=== PATIENT | female | born 1945 | race Caucasian/White ===

== ENCOUNTER 2018-07-24 11:44 | Inpatient (IN) ==
[2018-07-24 12:32] LABS: Basophils # 0.1 10*3/uL (0.0-0.2); Basophils % 0.7 % (0.0-0.8); Eosinophils # 0.3 10*3/uL (0.0-0.87); Eosinophils % 2.6 % (0.00-10.9); Hematocrit 38.2 VOL% (35.7-47.0); Hemoglobin 12.7 GM/DL (12.0-16.0); Immature Granulocytes % 0.9 %; Immature Granulocytes Absolute 0.11 #; Lymphocytes # 2.4 10*3/uL (1.4-4.0); Lymphocytes % 18.7 % (21.3-54.2); Mean Corpuscular HGB Conc 33.2 GM/DL (32-36); Mean Corpuscular Hemoglobin 28 PG (27-34); Mean Corpuscular Volume 85.3 FL (87-102); Mean Platelet Volume 9.2 FL (9.6-12.0); Monocytes # 0.8 10*3/uL (0.11-0.8); Monocytes % 6.1 % (1.7-12.7); Neutrophils # 9.2 10*3/uL (1.4-7.4); Platelet Count 298 T/CUMM (130-400); Red Blood Count 4.48 MC/CUMM (3.8-5.5); Red Cell Distribution Width 12.8 % (9.3-17.3); White Blood Count 12.9 T/CUMM (4-12)
[2018-07-24 13:23] LABS: Albumin 3.6 G/DL (3.4-5.0); Bilirubin,Total 0.4 MG/DL (0.2-1.0); Calcium 9.1 MG/DL (8.5-10.1); Osmolality,Calculated 279.5 MOS/KG (273-304); Potassium 3.9 MMOL/L (3.5-5.1); Total Protein 7.1 G/DL (6.4-8.3)
[2018-07-24 14:38] LABS: Apearance,Urine CLEAR (Clear); Bilirubin,Urine Negative (Negative); Blood, Urine Negative (Negative); Glucose,Urine (UA) Negative (Negative); Ketones,Urine Negative (Negative); Nitrite,Urine Negative (Negative); Protein,Urine Negative; RBC,Urine 2 /HPF (0-4); Squamous Epithelial Cell,Urine Occasional /HPF (0-10); Urine Color Yellow (Yellow); Urine Specific Gravity 1.011 (1.001-1.035); Urine Urobilinogen < 2.0 EU/DL (0.2-1.0); WBC,Urine 2 /HPF (0-6)
[2018-07-24] MEDS ORDERED: ZALEPLON 5 MG CAPSULE PO PRN (15:59)
[2018-07-24] MEDS ORDERED: GLUCAGON 1 MG VIAL IM PRN (15:59)
[2018-07-24] MEDS ORDERED: DEXTROSE 50% 25 GM/50 ML VIAL IV PRN (15:59)
[2018-07-24] MEDS ORDERED: CETIRIZINE 10 MG TABLET PO PRN (16:43)
[2018-07-24] MEDS ORDERED: tiZANidine 4 MG TABLET PO PRN (16:43)
[2018-07-24] MEDS: INSULIN LISPRO 100 UNIT/ML SUBCUT SCH ×2 (18:07→21:54)
[2018-07-24] MEDS: METOPROLOL TARTRATE 25 MG TABLET PO SCH (20:51)
[2018-07-24] MEDS: ATORVASTATIN 10 MG TABLET PO SCH (20:51)
[2018-07-24] MEDS: CITALOPRAM 40 MG TABLET PO SCH (21:13)
[2018-07-25] MEDS: LEVOTHYROXINE 50 MCG TABLET PO SCH (06:25)
[2018-07-25 08:36] LABS: Basophils # 0.1 10*3/uL (0.0-0.2); Basophils % 0.6 % (0.0-0.8); Eosinophils # 0.4 10*3/uL (0.0-0.87); Eosinophils % 3.1 % (0.00-10.9); Hematocrit 36.6 VOL% (35.7-47.0); Immature Granulocytes % 0.7 %; Immature Granulocytes Absolute 0.09 #; Lymphocytes # 3.7 10*3/uL (1.4-4.0); Lymphocytes % 29.9 % (21.3-54.2); Mean Corpuscular HGB Conc 32.8 GM/DL (32-36); Mean Corpuscular Hemoglobin 28 PG (27-34); Mean Corpuscular Volume 86.5 FL (87-102); Mean Platelet Volume 10.2 FL (9.6-12.0); Monocytes # 0.8 10*3/uL (0.11-0.8); Monocytes % 6.8 % (1.7-12.7); Neutrophils # 7.2 10*3/uL (1.4-7.4); Neutrophils % 58.9 % (38.7-73.9); Platelet Count 288 T/CUMM (130-400); Red Blood Count 4.23 MC/CUMM (3.8-5.5); Red Cell Distribution Width 12.8 % (9.3-17.3); White Blood Count 12.3 T/CUMM (4-12)
[2018-07-25] MEDS: METOPROLOL TARTRATE 25 MG TABLET PO SCH ×2 (09:00→21:46)
[2018-07-25] MEDS ORDERED: LOSARTAN 25 MG TABLET PO SCH (09:00)
[2018-07-25] MEDS ORDERED: CYANOCOBALAMIN 1000 MCG/1 ML VIAL IM SCH (09:00)
[2018-07-25] MEDS: ATORVASTATIN 10 MG TABLET PO SCH (09:01)
[2018-07-25] MEDS: PANTOPRAZOLE 40 MG TABLET PO SCH (09:01)
[2018-07-25] MEDS: INSULIN LISPRO 100 UNIT/ML SUBCUT SCH ×4 (09:02→21:45)
[2018-07-25] MEDS: ACETAMINOPHEN 325 MG TABLET PO PRN ×2 (09:05→13:26)
[2018-07-25 09:18] LABS: Calcium 8.8 MG/DL (8.5-10.1); Osmolality,Calculated 279.4 MOS/KG (273-304); Risk Ratio 4.68; Thyroid Stimulating Hormone 2.44 uIU/ml (0.358-3.74); VLDL CHOLESTEROL 37.2 MG/DL
[2018-07-25] MEDS ORDERED: ASPIRIN EC 81 MG TABLET PO SCH (09:30)
[2018-07-25] MEDS: LOSARTAN 50 MG TABLET PO SCH (10:00)
[2018-07-25] MEDS: APIXABAN 5 MG TABLET PO SCH ×2 (10:25→21:47)
[2018-07-25] MEDS: CITALOPRAM 40 MG TABLET PO SCH (21:47)
[2018-07-26 05:55] LABS: Basophils # 0.1 10*3/uL (0.0-0.2); Basophils % 0.7 % (0.0-0.8); Eosinophils # 0.4 10*3/uL (0.0-0.87); Eosinophils % 3.2 % (0.00-10.9); Hematocrit 37.6 VOL% (35.7-47.0); Hemoglobin 12.2 GM/DL (12.0-16.0); Immature Granulocytes % 0.7 %; Immature Granulocytes Absolute 0.08 #; Lymphocytes # 3.5 10*3/uL (1.4-4.0); Mean Corpuscular HGB Conc 32.4 GM/DL (32-36); Mean Corpuscular Hemoglobin 28 PG (27-34); Mean Corpuscular Volume 86.2 FL (87-102); Monocytes # 0.8 10*3/uL (0.11-0.8); Monocytes % 7.5 % (1.7-12.7); Neutrophils # 6.1 10*3/uL (1.4-7.4); Neutrophils % 55.9 % (38.7-73.9); Platelet Count 283 T/CUMM (130-400); Red Blood Count 4.36 MC/CUMM (3.8-5.5); Red Cell Distribution Width 12.6 % (9.3-17.3); White Blood Count 10.9 T/CUMM (4-12)
[2018-07-26 06:21] LABS: Osmolality,Calculated 279.4 MOS/KG (273-304); Potassium 4.3 MMOL/L (3.5-5.1)
[2018-07-26] MEDS: LEVOTHYROXINE 50 MCG TABLET PO SCH (06:23)
[2018-07-26] MEDS: APIXABAN 5 MG TABLET PO SCH (08:32)
[2018-07-26] MEDS: ATORVASTATIN 10 MG TABLET PO SCH (08:32)
[2018-07-26] MEDS: METOPROLOL TARTRATE 25 MG TABLET PO SCH (08:32)
[2018-07-26] MEDS: PANTOPRAZOLE 40 MG TABLET PO SCH (08:33)
[2018-07-26] MEDS: LOSARTAN 50 MG TABLET PO SCH (08:33)
[2018-07-26] MEDS: ACETAMINOPHEN 325 MG TABLET PO PRN (08:35)
[2018-07-26] MEDS: INSULIN LISPRO 100 UNIT/ML SUBCUT SCH ×2 (08:37→11:53)
[2018-07-26 13:36] VITALS: BP 158/69
== END 2018-07-26 12:57 | disposition home health service (06) | DRG 312 ==
LOC: N.ED 11:44 → N.EDINP 15:14 → N.2W 15:45 → N.5E 17:28
PROVIDERS: ADMIT Internal Medicine; ATTEND Internal Medicine

== ENCOUNTER 2020-05-06 14:05 | Observation (INO) ==
[2020-05-06] MEDS ORDERED: ZALEPLON 5 MG CAPSULE PO PRN (17:11)
[2020-05-06] MEDS ORDERED: GLUCAGON 1 MG VIAL IM PRN (17:11)
[2020-05-06] MEDS ORDERED: ACETAMINOPHEN 325 MG TABLET PO PRN (17:11)
[2020-05-06] MEDS ORDERED: ONDANSETRON 4 MG/2 ML VIAL IV PRN (17:11)
[2020-05-06] MEDS ORDERED: hydrALAZINE 20 MG/1 ML VIAL IV PRN (17:11)
[2020-05-06] MEDS ORDERED: NICOTINE 21 MG/24 HR PATCH TRANSDERM PRN (17:11)
[2020-05-06] MEDS ORDERED: traZODone 50 MG TABLET PO PRN (17:11)
[2020-05-06] MEDS ORDERED: diphenhydrAMINE CAP 25 MG CAPSULE PO PRN (17:11)
[2020-05-06] MEDS ORDERED: guaiFENesin/DM ER 600-30 MG TABLET PO PRN (17:11)
[2020-05-06] MEDS ORDERED: DEXTROSE 50% 25 GM/50 ML VIAL IV PRN ×2 (17:11→18:07)
[2020-05-06] MEDS ORDERED: LORazepam 2 MG/1 ML VIAL IV ONE (17:47)
[2020-05-06] MEDS ORDERED: diphenhydrAMINE 50 MG/1 ML VIAL IV ONE (17:47)
[2020-05-06] MEDS ORDERED: NITROGLYCERIN SL 0.4 MG TABLET SL PRN (17:47)
[2020-05-06] MEDS ORDERED: LORazepam 2 MG/1 ML VIAL IV PRN (17:51)
[2020-05-06] MEDS ORDERED: diphenhydrAMINE CAP 25 MG CAPSULE PO SCH (18:00)
[2020-05-06 18:02] LABS: Basophils # 0.1 10*3/uL (0.0-0.2); Basophils % 0.4 % (0.0-0.8); Eosinophils # 0.1 10*3/uL (0.0-0.87); Eosinophils % 0.8 % (0.00-10.9); Hematocrit 36.1 VOL% (35.7-47.0); Hemoglobin 11.7 GM/DL (12.0-16.0); Immature Granulocytes % 1.4 %; Lymphocytes # 1.8 10*3/uL (1.4-4.0); Lymphocytes % 12.5 % (21.3-54.2); Mean Corpuscular HGB Conc 32.4 GM/DL (32-36); Monocytes % 6.5 % (1.7-12.7); Neutrophils % 78.4 % (38.7-73.9); Platelet Count 260 T/CUMM (130-400); Red Blood Count 4.01 MC/CUMM (3.8-5.5); Red Cell Distribution Width 13.5 % (9.3-17.3); White Blood Count 14.4 T/CUMM (4-12)
[2020-05-06] MEDS ORDERED: CALCIUM CARBONATE CHEW 500 MG TABLET PO PRN (18:07)
[2020-05-06] MEDS ORDERED: ALUMINUM/MAGNES/SIMETH MAX STR 30 ML UDCUP PO PRN (18:07)
[2020-05-06] MEDS ORDERED: LACTULOSE 20 GM/30 ML UDCUP PO PRN (18:07)
[2020-05-06] MEDS ORDERED: SIMETHICONE CHEW 125 MG TABLET PO PRN (18:07)
[2020-05-06] MEDS ORDERED: BISACODYL 5 MG TABLET PO PRN (18:07)
[2020-05-06] MEDS ORDERED: DOCUSATE SODIUM 100 MG CAPSULE PO PRN (18:07)
[2020-05-06 18:22] LABS: Ferritin 61.9 ng/ml (8-252)
[2020-05-06 18:30] LABS: Alanine Aminotransferase 28 U/L (13-56); Albumin 3.3 G/DL (3.4-5.0); Alkaline Phosphatase 60 U/L (45-117); Aspartate Amino Transferase 22 U/L (0-37); Bilirubin,Total < 0.39 MG/DL (0.2-1.0); Blood Urea Nitrogen 14 MG/DL (7-18); Estimated Glom Filtration Rate 63 ML/MIN; Glucose 166 MG/DL (74-106); Total Protein 6.7 G/DL (6.4-8.3)
[2020-05-06] MEDS ORDERED: predniSONE 20 MG TABLET PO SCH (21:00)
[2020-05-06] MEDS ORDERED: ROSUVASTATIN 10 MG TABLET PO SCH (21:00)
[2020-05-06] MEDS: FAMOTIDINE 20 MG TABLET PO SCH (21:11)
[2020-05-06] MEDS: ENOXAPARIN 40 MG/0.4 ML SYRINGE SUBCUT SCH (21:11)
[2020-05-06] MEDS: GABAPENTIN 100 MG CAPSULE PO SCH (21:12)
[2020-05-06] MEDS: METOPROLOL TARTRATE 25 MG TABLET PO SCH (21:12)
[2020-05-06] MEDS: DIVALPROEX 500 MG TABLET PO SCH (21:12)
[2020-05-06 23:08] LABS: Apearance,Urine Slightly Hazy (Clear); Bilirubin,Urine Negative (Negative); Blood, Urine Negative (Negative); Glucose,Urine (UA) Negative (Negative); Ketones,Urine 5 mg/dL (Negative); Mucus,Urine Occasional /LPF (Occasional); Nitrite,Urine Negative (Negative); Protein,Urine Negative; RBC,Urine 4 /HPF (0-4); Urine Color Yellow (Yellow); Urine Specific Gravity 1.014 (1.001-1.035); WBC,Urine 16 /HPF (0-6)
[2020-05-07 06:17] LABS: Basophils # 0.1 10*3/uL (0.0-0.2); Basophils % 0.5 % (0.0-0.8); Eosinophils # 0.3 10*3/uL (0.0-0.87); Hematocrit 32.1 VOL% (35.7-47.0); Hemoglobin 10.3 GM/DL (12.0-16.0); Immature Granulocytes % 0.7 %; Immature Granulocytes Absolute 0.08 #; Lymphocytes # 3.2 10*3/uL (1.4-4.0); Lymphocytes % 29.6 % (21.3-54.2); Mean Corpuscular HGB Conc 32.1 GM/DL (32-36); Mean Corpuscular Volume 90.7 FL (87-102); Mean Platelet Volume 8.8 FL (9.6-12.0); Monocytes % 7.3 % (1.7-12.7); Neutrophils % 58.9 % (38.7-73.9); Platelet Count 214 T/CUMM (130-400); Red Blood Count 3.54 MC/CUMM (3.8-5.5); Red Cell Distribution Width 13.9 % (9.3-17.3); White Blood Count 10.8 T/CUMM (4-12)
[2020-05-07 06:45] LABS: Free T4 (Free Thyroxine) 1.04 NG/DL (0.76-1.46)
[2020-05-07 06:47] LABS: Albumin 2.9 G/DL (3.4-5.0); Bilirubin,Total 0.6 MG/DL (0.2-1.0); Calcium 8.6 MG/DL (8.5-10.1); Ferritin 53.3 ng/ml (8-252); Osmolality,Calculated 276.7 MOS/KG (273-304); Risk Ratio 5.48; Thyroid Stimulating Hormone 1.28 uIU/ml (0.358-3.74); Total Protein 6.4 G/DL (6.4-8.3); VLDL CHOLESTEROL 83.8 MG/DL
[2020-05-07 07:50] LABS: Folate > 24.0 NG/ML (5.4-24.0); Vitamin B12 737 PG/ML (211-911)
[2020-05-07] MEDS: POLYETHYLENE GLYCOL POWDER 17 GM PACK PO SCH (08:25)
[2020-05-07] MEDS: CITALOPRAM 40 MG TABLET PO SCH (08:26)
[2020-05-07] MEDS: LOSARTAN 25 MG TABLET PO SCH (08:27)
[2020-05-07] MEDS: FAMOTIDINE 20 MG TABLET PO SCH ×2 (08:27→20:32)
[2020-05-07] MEDS: ASPIRIN EC 81 MG TABLET PO SCH (08:27)
[2020-05-07] MEDS: LEVOTHYROXINE 50 MCG TABLET PO SCH (08:27)
[2020-05-07] MEDS: CLOPIDOGREL 75 MG TABLET PO SCH (08:27)
[2020-05-07] MEDS: DIGOXIN 0.25 MG TABLET PO SCH (08:30)
[2020-05-07] MEDS ORDERED: CYANOCOBALAMIN 1000 MCG/1 ML VIAL IM SCH (09:00)
[2020-05-07] MEDS ORDERED: DOXYCYCLINE HYCLATE 100 MG CAPSULE PO SCH (09:00)
[2020-05-07] MEDS ORDERED: PANTOPRAZOLE 40 MG TABLET PO SCH (09:00)
[2020-05-07] MEDS ORDERED: KETOROLAC 15 MG/1 ML VIAL IV ONE (09:44)
[2020-05-07] MEDS ORDERED: KETOROLAC 15 MG/1 ML VIAL IV PRN (09:44)
[2020-05-07] MEDS ORDERED: AZTREONAM 500 MG in SODIUM CHLORIDE 0.9% 100 ML IV SCH (11:00)
[2020-05-07] MEDS: LIDOCAINE 5% PATCH TRANSDERM SCH (11:46)
[2020-05-07] MEDS: cefTRIAXone 1,000 MG in SYRINGE 1 EACH IV SCH (11:47)
[2020-05-07] MEDS ORDERED: DEXAMETHASONE 4 MG/1 ML VIAL IV SCH (12:00)
[2020-05-07] MEDS ORDERED: SCOPOLAMINE 1.5 MG PATCH TRANSDERM ONE (12:00)
[2020-05-07] MEDS: DIVALPROEX 500 MG TABLET PO SCH (20:33)
[2020-05-07] MEDS: METOPROLOL TARTRATE 25 MG TABLET PO SCH (20:33)
[2020-05-07] MEDS: GABAPENTIN 100 MG CAPSULE PO SCH (20:33)
[2020-05-07] MEDS: ENOXAPARIN 40 MG/0.4 ML SYRINGE SUBCUT SCH (20:34)
[2020-05-07] MEDS ORDERED: ROSUVASTATIN 20 MG TABLET PO SCH ×2 (21:00)
[2020-05-08 06:03] LABS: Basophils # 0.1 10*3/uL (0.0-0.2); Basophils % 0.6 % (0.0-0.8); Eosinophils # 0.4 10*3/uL (0.0-0.87); Eosinophils % 4.2 % (0.00-10.9); Hematocrit 32.5 VOL% (35.7-47.0); Hemoglobin 10.5 GM/DL (12.0-16.0); Immature Granulocytes % 1.1 %; Lymphocytes # 3.1 10*3/uL (1.4-4.0); Lymphocytes % 33.2 % (21.3-54.2); Mean Corpuscular HGB Conc 32.3 GM/DL (32-36); Mean Corpuscular Volume 90.8 FL (87-102); Mean Platelet Volume 8.9 FL (9.6-12.0); Monocytes % 9.7 % (1.7-12.7); Neutrophils % 51.2 % (38.7-73.9); Platelet Count 216 T/CUMM (130-400); Red Blood Count 3.58 MC/CUMM (3.8-5.5); Red Cell Distribution Width 13.7 % (9.3-17.3); White Blood Count 9.3 T/CUMM (4-12)
[2020-05-08 06:31] LABS: Ferritin 72.9 ng/ml (8-252)
[2020-05-08 06:32] LABS: Albumin 2.8 G/DL (3.4-5.0); Bilirubin,Total 0.6 MG/DL (0.2-1.0); Calcium 8.4 MG/DL (8.5-10.1); Osmolality,Calculated 279.5 MOS/KG (273-304); Total Protein 6.5 G/DL (6.4-8.3)
[2020-05-08] MEDS: LIDOCAINE 5% PATCH TRANSDERM SCH (08:28)
[2020-05-08] MEDS: CLOPIDOGREL 75 MG TABLET PO SCH (08:29)
[2020-05-08] MEDS: LEVOTHYROXINE 50 MCG TABLET PO SCH (08:29)
[2020-05-08] MEDS: DIGOXIN 0.25 MG TABLET PO SCH (08:29)
[2020-05-08] MEDS: POLYETHYLENE GLYCOL POWDER 17 GM PACK PO SCH (08:29)
[2020-05-08] MEDS: CITALOPRAM 40 MG TABLET PO SCH (08:29)
[2020-05-08] MEDS: ASPIRIN EC 81 MG TABLET PO SCH (08:29)
[2020-05-08] MEDS: FAMOTIDINE 20 MG TABLET PO SCH (08:29)
[2020-05-08] MEDS: cefTRIAXone 1,000 MG in SYRINGE 1 EACH IV SCH (08:30)
[2020-05-08] MEDS: LOSARTAN 25 MG TABLET PO SCH (08:30)
[2020-05-08 12:12] VITALS: BP 125/79
[2020-05-09 21:01] LABS: Specimen Source THROAT
== END 2020-05-08 15:55 ==
LOC: INTOOBSV 16:53 → N.2E 16:53
PROVIDERS: ADMIT Internal Medicine; ATTEND Hospitalist

== ENCOUNTER 2020-05-22 12:25 | Inpatient (IN) ==
[2020-05-22] MEDS ORDERED: GLUCAGON 1 MG VIAL IM PRN (20:57)
[2020-05-22] MEDS ORDERED: DEXTROSE 50% 25 GM/50 ML VIAL IV PRN (20:57)
[2020-05-22] MEDS ORDERED: diphenhydrAMINE CAP 25 MG CAPSULE PO PRN (21:02)
[2020-05-22] MEDS ORDERED: NICOTINE 21 MG/24 HR PATCH TRANSDERM PRN (21:02)
[2020-05-22] MEDS ORDERED: hydrALAZINE 20 MG/1 ML VIAL IV PRN (21:02)
[2020-05-22] MEDS ORDERED: ONDANSETRON 4 MG/2 ML VIAL IV PRN (21:02)
[2020-05-22] MEDS ORDERED: guaiFENesin/DM ER 600-30 MG TABLET PO PRN (21:02)
[2020-05-22 21:22] LABS: ABG Base Excess 2.8 MMOL/L (-2.5-2.5); ABG HCO3 26.9 MMOL/L (20-26); ABG Oxygen Saturation 97.7 % (95-100); ABG PCO2 35.2 MM HG (35-48); ABG PH 7.478 (7.35-7.45); ABG PO2 99.3 MM HG (80-95); ABG TCO2 23.3 MMOL/L (23-27); Allen Test Positive
[2020-05-22 22:03] LABS: Basophils # 0.1 10*3/uL (0.0-0.2); Basophils % 0.6 % (0.0-0.8); Eosinophils # 0.1 10*3/uL (0.0-0.87); Eosinophils % 0.9 % (0.00-10.9); Hematocrit 34.5 VOL% (35.7-47.0); Hemoglobin 11.2 GM/DL (12.0-16.0); Immature Granulocytes % 0.9 %; Immature Granulocytes Absolute 0.11 #; Lymphocytes % 15.8 % (21.3-54.2); Mean Corpuscular HGB Conc 32.5 GM/DL (32-36); Mean Corpuscular Volume 90.6 FL (87-102); Mean Platelet Volume 9.7 FL (9.6-12.0); Monocytes % 7.6 % (1.7-12.7); Neutrophils % 74.2 % (38.7-73.9); Platelet Count 331 T/CUMM (130-400); Red Blood Count 3.81 MC/CUMM (3.8-5.5); Red Cell Distribution Width 13.7 % (9.3-17.3); White Blood Count 12.4 T/CUMM (4-12)
[2020-05-22 22:26] LABS: Ferritin 101.6 ng/ml (8-252)
[2020-05-22 22:30] LABS: Bilirubin,Total 0.4 MG/DL (0.2-1.0); Calcium 8.9 MG/DL (8.5-10.1); Osmolality,Calculated 279.7 MOS/KG (273-304); Risk Ratio 4.39; Thyroid Stimulating Hormone 1.75 uIU/ml (0.358-3.74)
[2020-05-22 22:34] LABS: Bacteria,Urine Occasional /HPF (Few); Bilirubin,Urine Negative (Negative); Blood, Urine Negative (Negative); Glucose,Urine (UA) Negative (Negative); Ketones,Urine Negative (Negative); Nitrite,Urine Negative (Negative); Protein,Urine Negative; RBC,Urine 1 /HPF (0-4); Squamous Epithelial Cell,Urine Occasional /HPF (0-10); Urine Appearance CLEAR (Clear); Urine Color Yellow (Yellow); Urine Urobilinogen < 2.0 EU/DL (0.2-1.0); WBC,Urine 2 /HPF (0-6)
[2020-05-22] MEDS ORDERED: ENOXAPARIN 80 MG/0.8 ML SYRINGE SUBCUT ONE (23:00)
[2020-05-22] MEDS ORDERED: VANCOMYCIN INJ 1,250 MG in SODIUM CHLORIDE 0.9% 250 ML IV ONE (23:30)
[2020-05-22] MEDS ORDERED: MEROPENEM 500 MG in SODIUM CHLORIDE 0.9% 100 ML IV ONE (23:30)
[2020-05-22] MEDS: ACETAMINOPHEN 325 MG TABLET PO PRN (23:49)
[2020-05-23] MEDS ORDERED: ALPRAZolam 0.25 MG TABLET PO ONE (00:14)
[2020-05-23] MEDS: MORPHINE 4 MG/1 ML VIAL IV PRN (01:35)
[2020-05-23] MEDS ORDERED: NITROGLYCERIN 2% OINT 1 INCH/GM PACK TOP ONE (03:45)
[2020-05-23] MEDS ORDERED: ASPIRIN 325 MG TABLET PO SCH (09:00)
[2020-05-23] MEDS ORDERED: FLUCONAZOLE 100 MG TABLET PO ONE (10:42)
[2020-05-23] MEDS: BISOPROLOL 5 MG TABLET PO SCH (11:04)
[2020-05-23] MEDS: FAMOTIDINE 20 MG TABLET PO SCH ×2 (11:04→20:22)
[2020-05-23] MEDS: ENOXAPARIN 80 MG/0.8 ML SYRINGE SUBCUT SCH ×2 (11:04→23:20)
[2020-05-23] MEDS: DIGOXIN 0.25 MG TABLET PO SCH (11:04)
[2020-05-23] MEDS: CETIRIZINE 10 MG TABLET PO SCH (11:05)
[2020-05-23] MEDS: CLOPIDOGREL 75 MG TABLET PO SCH (11:05)
[2020-05-23] MEDS: LOSARTAN 25 MG TABLET PO SCH (11:05)
[2020-05-23] MEDS ORDERED: ONDANSETRON 4 MG TABLET PO PRN (11:10)
[2020-05-23] MEDS ORDERED: CYANOCOBALAMIN 1000 MCG/1 ML VIAL IM SCH (11:30)
[2020-05-23] MEDS ORDERED: MAGNESIUM SULF RIDER 2 GM in PREMIX 1 EACH IV PRN (12:42)
[2020-05-23] MEDS ORDERED: POTASSIUM CHLORIDE RIDER 10 MEQ in PREMIX 1 EACH IV PRN (12:42)
[2020-05-23] MEDS: MICONAZOLE 2% VAG CREAM 45 GM TUBE VAG SCH (14:08)
[2020-05-23] MEDS: ACETAMINOPHEN 325 MG TABLET PO PRN (14:08)
[2020-05-23 17:04] LABS: Bacteria,Urine Occasional /HPF (Few); Bilirubin,Urine Negative (Negative); Blood, Urine Negative (Negative); Glucose,Urine (UA) Negative (Negative); Ketones,Urine Negative (Negative); Nitrite,Urine Negative (Negative); Protein,Urine Negative; RBC,Urine 2 /HPF (0-4); Urine Appearance CLEAR (Clear); Urine Color Straw (Yellow); Urine Specific Gravity 1.008 (1.001-1.035); Urine Urobilinogen < 2.0 EU/DL (0.2-1.0); WBC,Urine <1 /HPF (0-6)
[2020-05-23] MEDS: SODIUM CHLORIDE 0.9% 1,000 ML IV SCH (17:32)
[2020-05-23] MEDS ORDERED: predniSONE 50 MG TABLET PO ONE ×2 (18:00→22:00)
[2020-05-23] MEDS: ALBUTEROL/IPRATROPIUM 3 ML NEB RESP TX SCH (19:06)
[2020-05-23] MEDS: ROSUVASTATIN 10 MG TABLET PO SCH (20:21)
[2020-05-23] MEDS: traZODone 50 MG TABLET PO SCH (20:22)
[2020-05-23] MEDS: CYCLOBENZAPRINE 10 MG TABLET PO SCH (20:22)
[2020-05-23] MEDS: GABAPENTIN 100 MG CAPSULE PO SCH (20:22)
[2020-05-23] MEDS: TAMSULOSIN 0.4 MG CAPSULE PO SCH (20:23)
[2020-05-24] MEDS: ALBUTEROL/IPRATROPIUM 3 ML NEB RESP TX SCH ×4 (00:54→19:26)
[2020-05-24 05:50] LABS: Basophils % 0.5 % (0.0-0.8); Hematocrit 35.1 VOL% (35.7-47.0); Hemoglobin 11.5 GM/DL (12.0-16.0); Immature Granulocytes % 1.7 %; Immature Granulocytes Absolute 0.13 #; Lymphocytes # 0.6 10*3/uL (1.4-4.0); Lymphocytes % 7.6 % (21.3-54.2); Mean Corpuscular HGB Conc 32.8 GM/DL (32-36); Mean Corpuscular Volume 90.5 FL (87-102); Mean Platelet Volume 10.1 FL (9.6-12.0); Monocytes % 1.9 % (1.7-12.7); Neutrophils % 88.3 % (38.7-73.9); Platelet Count 320 T/CUMM (130-400); Red Blood Count 3.88 MC/CUMM (3.8-5.5); Red Cell Distribution Width 13.5 % (9.3-17.3); White Blood Count 7.9 T/CUMM (4-12)
[2020-05-24] MEDS ORDERED: DIAZEPAM 5 MG TABLET PO ONE (06:00)
[2020-05-24] MEDS ORDERED: diphenhydrAMINE CAP 25 MG CAPSULE PO ONE (06:00)
[2020-05-24 06:16] LABS: Alanine Aminotransferase 22 U/L (13-56); Albumin 2.9 G/DL (3.4-5.0); Alkaline Phosphatase 90 U/L (45-117); Aspartate Amino Transferase 27 U/L (0-37); Bilirubin,Total < 0.39 MG/DL (0.2-1.0); Blood Urea Nitrogen 15 MG/DL (7-18); Calcium 8.8 MG/DL (8.5-10.1); Estimated Glom Filtration Rate 71 ML/MIN; Glucose 192 MG/DL (74-106); Osmolality,Calculated 282.5 MOS/KG (273-304); Total Protein 7.2 G/DL (6.4-8.3)
[2020-05-24 06:19] LABS: Valproic Acid < 3.0 UG/ML (50-100)
[2020-05-24] MEDS ORDERED: predniSONE 50 MG TABLET PO ONE ×2 (07:00→13:00)
[2020-05-24] MEDS: LEVOTHYROXINE 50 MCG TABLET PO SCH (07:08)
[2020-05-24] MEDS: GABAPENTIN 100 MG CAPSULE PO SCH ×2 (08:44→21:38)
[2020-05-24] MEDS: FAMOTIDINE 20 MG TABLET PO SCH ×2 (08:44→21:37)
[2020-05-24] MEDS: CLOPIDOGREL 75 MG TABLET PO SCH (08:44)
[2020-05-24] MEDS: TAMSULOSIN 0.4 MG CAPSULE PO SCH ×2 (08:45→21:37)
[2020-05-24] MEDS: LOSARTAN 25 MG TABLET PO SCH (08:45)
[2020-05-24] MEDS: DIVALPROEX 500 MG TABLET PO SCH (08:45)
[2020-05-24] MEDS: DIGOXIN 0.25 MG TABLET PO SCH (08:46)
[2020-05-24] MEDS: MULTIVITAMIN (OCUVITE) TABLET PO SCH (08:46)
[2020-05-24] MEDS: CITALOPRAM 40 MG TABLET PO SCH (08:47)
[2020-05-24] MEDS: BISOPROLOL 5 MG TABLET PO SCH ×2 (08:47→21:38)
[2020-05-24] MEDS: CETIRIZINE 10 MG TABLET PO SCH (08:47)
[2020-05-24] MEDS: SODIUM CHLORIDE 0.9% 1,000 ML IV SCH (08:49)
[2020-05-24] MEDS ORDERED: ASPIRIN EC 81 MG TABLET PO SCH (09:00)
[2020-05-24] MEDS ORDERED: METOPROLOL TARTRATE 25 MG TABLET PO SCH (09:00)
[2020-05-24] MEDS: LORATADINE 10 MG TABLET PO SCH (09:15)
[2020-05-24] MEDS: POLYETHYLENE GLYCOL POWDER 17 GM PACK PO SCH (09:15)
[2020-05-24] MEDS ORDERED: LIDOCAINE 1% 20 ML VIAL ONE (10:10)
[2020-05-24] MEDS ORDERED: fentaNYL 100 MCG/2 ML VIAL ONE (10:36)
[2020-05-24] MEDS ORDERED: MIDAZOLAM 2 MG/2 ML VIAL ONE (10:36)
[2020-05-24] MEDS: ENOXAPARIN 80 MG/0.8 ML SYRINGE SUBCUT SCH (11:01)
[2020-05-24] MEDS ORDERED: HEPARIN 5,000 UNIT/1 ML VIAL ONE (11:10)
[2020-05-24] MEDS ORDERED: KETOROLAC 15 MG/1 ML VIAL IV ONE (14:00)
[2020-05-24] MEDS ORDERED: KETOROLAC 15 MG/1 ML VIAL ONE (14:02)
[2020-05-24] MEDS ORDERED: METOPROLOL TARTRATE 5 MG/5 ML VIAL IV ONE (14:03)
[2020-05-24] MEDS ORDERED: NITROGLYCERIN SL 0.4 MG TABLET SL ONE (14:03)
[2020-05-24] MEDS: NITROGLYCERIN SL 0.4 MG TABLET SL PRN ×2 (14:08→14:15)
[2020-05-24] MEDS ORDERED: DIGOXIN 0.5 MG/2 ML AMP IV ONE (14:27)
[2020-05-24] MEDS ORDERED: BISOPROLOL 5 MG TABLET PO ONE (14:28)
[2020-05-24] MEDS ORDERED: FUROSEMIDE 40 MG/4 ML VIAL IV ONE (14:30)
[2020-05-24 15:06] LABS: CKMB % 6.7 %
[2020-05-24 15:11] LABS: Troponin I 3.81 NG/ML (0.00-0.045)
[2020-05-24] MEDS: ACETAMINOPHEN 325 MG TABLET PO PRN ×2 (15:30→22:40)
[2020-05-24] MEDS: HEPARIN DRIP 25,000 UNITS/500 ML PREMIX IV SCH (17:25)
[2020-05-24] MEDS: NITROGLYCERIN 2% OINT 1 INCH/GM PACK TOP SCH ×3 (17:25→17:42)
[2020-05-24] MEDS: MORPHINE 4 MG/1 ML VIAL IV PRN (18:13)
[2020-05-24] MEDS ORDERED: ENOXAPARIN 40 MG/0.4 ML SYRINGE SUBCUT SCH (21:00)
[2020-05-24] MEDS: CYCLOBENZAPRINE 10 MG TABLET PO SCH (21:38)
[2020-05-24] MEDS: traZODone 50 MG TABLET PO SCH (21:38)
[2020-05-24] MEDS: CLORAZEPATE 3.75 MG TABLET PO PRN (21:38)
[2020-05-24] MEDS: ROSUVASTATIN 10 MG TABLET PO SCH (21:38)
[2020-05-24] MEDS: MICONAZOLE 2% VAG CREAM 45 GM TUBE VAG SCH (21:39)
[2020-05-24] MEDS: MAGNESIUM HYDROXIDE SUSP 30 ML UDCUP PO PRN (22:42)
[2020-05-25] MEDS: NITROGLYCERIN 2% OINT 1 INCH/GM PACK TOP SCH ×4 (00:18→17:33)
[2020-05-25] MEDS: ALBUTEROL/IPRATROPIUM 3 ML NEB RESP TX SCH ×4 (00:58→19:15)
[2020-05-25 05:13] LABS: Basophils % 0.2 % (0.0-0.8); Hematocrit 31.4 VOL% (35.7-47.0); Hemoglobin 10.2 GM/DL (12.0-16.0); Immature Granulocytes % 1.6 %; Immature Granulocytes Absolute 0.28 #; Lymphocytes # 1.4 10*3/uL (1.4-4.0); Lymphocytes % 7.6 % (21.3-54.2); Mean Corpuscular HGB Conc 32.5 GM/DL (32-36); Mean Corpuscular Volume 90.8 FL (87-102); Mean Platelet Volume 9.8 FL (9.6-12.0); Monocytes % 7.1 % (1.7-12.7); Neutrophils % 83.5 % (38.7-73.9); Platelet Count 341 T/CUMM (130-400); Red Blood Count 3.46 MC/CUMM (3.8-5.5); Red Cell Distribution Width 13.7 % (9.3-17.3); White Blood Count 17.9 T/CUMM (4-12)
[2020-05-25 05:39] LABS: Albumin 2.6 G/DL (3.4-5.0); Bilirubin,Total 0.5 MG/DL (0.2-1.0); Calcium 8.4 MG/DL (8.5-10.1); Osmolality,Calculated 281.8 MOS/KG (273-304); Total Protein 5.9 G/DL (6.4-8.3)
[2020-05-25 05:52] LABS: Osmolality,Calculated 282.8 MOS/KG (273-304)
[2020-05-25 05:53] LABS: Calcium 8.4 MG/DL (8.5-10.1)
[2020-05-25] MEDS: LEVOTHYROXINE 50 MCG TABLET PO SCH (06:41)
[2020-05-25] MEDS ORDERED: DOCUSATE SODIUM 100 MG CAPSULE PO SCH (09:00)
[2020-05-25] MEDS ORDERED: SERTRALINE 25 MG TABLET PO ONE (09:00)
[2020-05-25] MEDS: POLYETHYLENE GLYCOL POWDER 17 GM PACK PO SCH (09:29)
[2020-05-25] MEDS: DIVALPROEX 500 MG TABLET PO SCH (09:29)
[2020-05-25] MEDS: TAMSULOSIN 0.4 MG CAPSULE PO SCH ×2 (09:31→21:44)
[2020-05-25] MEDS: FAMOTIDINE 20 MG TABLET PO SCH ×2 (09:32→21:46)
[2020-05-25] MEDS: DIGOXIN 0.25 MG TABLET PO SCH (09:32)
[2020-05-25] MEDS: GABAPENTIN 100 MG CAPSULE PO SCH ×2 (09:33→21:44)
[2020-05-25] MEDS: CITALOPRAM 40 MG TABLET PO SCH (09:34)
[2020-05-25] MEDS: LORATADINE 10 MG TABLET PO SCH (09:34)
[2020-05-25] MEDS: MULTIVITAMIN (OCUVITE) TABLET PO SCH (09:34)
[2020-05-25] MEDS: BISOPROLOL 5 MG TABLET PO SCH ×2 (09:35→21:46)
[2020-05-25] MEDS: CETIRIZINE 10 MG TABLET PO SCH (09:35)
[2020-05-25] MEDS: FUROSEMIDE 40 MG/4 ML VIAL IV SCH ×2 (09:36→16:25)
[2020-05-25] MEDS: PSYLLIUM POWDER 3.7 GM/PACK PO SCH (11:05)
[2020-05-25] MEDS: MAGNESIUM HYDROXIDE SUSP 30 ML UDCUP PO PRN (11:06)
[2020-05-25] MEDS: MORPHINE 4 MG/1 ML VIAL IV PRN ×2 (14:30→19:20)
[2020-05-25] MEDS ORDERED: BISACODYL 10 MG SUPP RECTAL ONE (14:50)
[2020-05-25] MEDS ORDERED: MINERAL OIL ENEMA 133 ML BOTTLE RECTAL PRN (14:53)
[2020-05-25] MEDS: HEPARIN DRIP 25,000 UNITS/500 ML PREMIX IV SCH (16:22)
[2020-05-25] MEDS: MAGNESIUM HYDROXIDE SUSP 30 ML UDCUP PO SCH (16:29)
[2020-05-25] MEDS: NITROGLYCERIN SL 0.4 MG TABLET SL PRN ×2 (18:41→18:45)
[2020-05-25] MEDS: DOCUSATE SODIUM 100 MG CAPSULE PO SCH (21:42)
[2020-05-25] MEDS: ROSUVASTATIN 10 MG TABLET PO SCH (21:42)
[2020-05-25] MEDS: CYCLOBENZAPRINE 10 MG TABLET PO SCH (21:43)
[2020-05-25] MEDS: traZODone 50 MG TABLET PO SCH (21:43)
[2020-05-25] MEDS: SERTRALINE 25 MG TABLET PO SCH (21:46)
[2020-05-25] MEDS: MICONAZOLE 2% VAG CREAM 45 GM TUBE VAG SCH (21:47)
[2020-05-25] MEDS: CLORAZEPATE 3.75 MG TABLET PO PRN (21:47)
[2020-05-26] MEDS: NITROGLYCERIN 2% OINT 1 INCH/GM PACK TOP SCH ×4 (00:05→17:12)
[2020-05-26] MEDS: ALBUTEROL/IPRATROPIUM 3 ML NEB RESP TX SCH ×4 (00:45→19:34)
[2020-05-26 05:51] LABS: Basophils % 0.3 % (0.0-0.8); Eosinophils # 0.1 10*3/uL (0.0-0.87); Eosinophils % 0.6 % (0.00-10.9); Hematocrit 27.4 VOL% (35.7-47.0); Hemoglobin 8.9 GM/DL (12.0-16.0); Immature Granulocytes % 0.9 %; Immature Granulocytes Absolute 0.13 #; Lymphocytes # 2.4 10*3/uL (1.4-4.0); Lymphocytes % 17.1 % (21.3-54.2); Mean Corpuscular HGB Conc 32.5 GM/DL (32-36); Mean Corpuscular Volume 89.5 FL (87-102); Mean Platelet Volume 10.1 FL (9.6-12.0); Monocytes % 9.4 % (1.7-12.7); Neutrophils % 71.7 % (38.7-73.9); Platelet Count 295 T/CUMM (130-400); Red Blood Count 3.06 MC/CUMM (3.8-5.5); Red Cell Distribution Width 14.1 % (9.3-17.3); White Blood Count 13.9 T/CUMM (4-12)
[2020-05-26 06:07] LABS: Calcium 7.6 MG/DL (8.5-10.1); Osmolality,Calculated 277.1 MOS/KG (273-304)
[2020-05-26 06:13] LABS: Albumin 2.5 G/DL (3.4-5.0); Bilirubin,Total 0.7 MG/DL (0.2-1.0); Osmolality,Calculated 274.2 MOS/KG (273-304); Total Protein 5.9 G/DL (6.4-8.3)
[2020-05-26] MEDS: LEVOTHYROXINE 50 MCG TABLET PO SCH (06:34)
[2020-05-26] MEDS: PSYLLIUM POWDER 3.7 GM/PACK PO SCH (09:27)
[2020-05-26] MEDS: MAGNESIUM HYDROXIDE SUSP 30 ML UDCUP PO SCH (09:27)
[2020-05-26] MEDS: FUROSEMIDE 40 MG/4 ML VIAL IV SCH (09:27)
[2020-05-26] MEDS: GABAPENTIN 100 MG CAPSULE PO SCH ×2 (09:28→21:50)
[2020-05-26] MEDS: POLYETHYLENE GLYCOL POWDER 17 GM PACK PO SCH (09:28)
[2020-05-26] MEDS: ASPIRIN EC 81 MG TABLET PO SCH (09:28)
[2020-05-26] MEDS: DIGOXIN 0.25 MG TABLET PO SCH (09:28)
[2020-05-26] MEDS: LORATADINE 10 MG TABLET PO SCH (09:28)
[2020-05-26] MEDS: TAMSULOSIN 0.4 MG CAPSULE PO SCH ×2 (09:29→21:50)
[2020-05-26] MEDS: CITALOPRAM 40 MG TABLET PO SCH (09:29)
[2020-05-26] MEDS: DIVALPROEX 500 MG TABLET PO SCH (09:29)
[2020-05-26] MEDS: FAMOTIDINE 20 MG TABLET PO SCH (09:29)
[2020-05-26] MEDS: MULTIVITAMIN (OCUVITE) TABLET PO SCH (09:29)
[2020-05-26] MEDS: BISOPROLOL 5 MG TABLET PO SCH ×2 (09:29→21:49)
[2020-05-26] MEDS: DOCUSATE SODIUM 100 MG CAPSULE PO SCH ×2 (09:29→21:50)
[2020-05-26] MEDS ORDERED: SODIUM PHOSPHATE ENEMA 133 ML BOTTLE RECTAL PRN (09:40)
[2020-05-26] MEDS ORDERED: SODIUM PHOSPHATE ENEMA 133 ML BOTTLE RECTAL ONE (09:40)
[2020-05-26] MEDS: HEPARIN DRIP 25,000 UNITS/500 ML PREMIX IV SCH (11:40)
[2020-05-26] MEDS ORDERED: DEXTROSE 50% 25 GM/50 ML VIAL IV PRN (15:43)
[2020-05-26] MEDS: ACETAMINOPHEN 325 MG TABLET PO PRN (21:48)
[2020-05-26] MEDS: SERTRALINE 25 MG TABLET PO SCH (21:49)
[2020-05-26] MEDS: ROSUVASTATIN 10 MG TABLET PO SCH (21:49)
[2020-05-26] MEDS: traZODone 50 MG TABLET PO SCH (21:50)
[2020-05-26] MEDS: CYCLOBENZAPRINE 10 MG TABLET PO SCH (21:50)
[2020-05-26] MEDS: MICONAZOLE 2% VAG CREAM 45 GM TUBE VAG SCH (21:50)
[2020-05-27] MEDS: NITROGLYCERIN 2% OINT 1 INCH/GM PACK TOP SCH ×5 (00:45→23:40)
[2020-05-27] MEDS: ALBUTEROL/IPRATROPIUM 3 ML NEB RESP TX SCH ×4 (01:14→20:08)
[2020-05-27 05:24] LABS: Basophils # 0.1 10*3/uL (0.0-0.2); Basophils % 0.4 % (0.0-0.8); Eosinophils # 0.2 10*3/uL (0.0-0.87); Eosinophils % 1.9 % (0.00-10.9); Hematocrit 27.8 VOL% (35.7-47.0); Hemoglobin 8.9 GM/DL (12.0-16.0); Immature Granulocytes % 2.1 %; Immature Granulocytes Absolute 0.24 #; Lymphocytes # 2.8 10*3/uL (1.4-4.0); Lymphocytes % 24.4 % (21.3-54.2); Mean Corpuscular Volume 90.8 FL (87-102); Mean Platelet Volume 9.8 FL (9.6-12.0); Neutrophils % 62.2 % (38.7-73.9); Platelet Count 300 T/CUMM (130-400); Red Blood Count 3.06 MC/CUMM (3.8-5.5); White Blood Count 11.4 T/CUMM (4-12)
[2020-05-27] MEDS: HEPARIN DRIP 25,000 UNITS/500 ML PREMIX IV SCH ×2 (05:24→23:39)
[2020-05-27 05:42] LABS: Calcium 8.2 MG/DL (8.5-10.1)
[2020-05-27 05:48] LABS: Albumin 2.3 G/DL (3.4-5.0); Calcium 8.3 MG/DL (8.5-10.1); Osmolality,Calculated 272.2 MOS/KG (273-304); Total Protein 6.1 G/DL (6.4-8.3)
[2020-05-27] MEDS: LEVOTHYROXINE 50 MCG TABLET PO SCH (06:09)
[2020-05-27] MEDS: POLYETHYLENE GLYCOL POWDER 17 GM PACK PO SCH (10:01)
[2020-05-27] MEDS: GABAPENTIN 100 MG CAPSULE PO SCH ×2 (10:01→21:15)
[2020-05-27] MEDS: MAGNESIUM HYDROXIDE SUSP 30 ML UDCUP PO SCH (10:01)
[2020-05-27] MEDS: DIGOXIN 0.25 MG TABLET PO SCH (10:02)
[2020-05-27] MEDS: BISOPROLOL 5 MG TABLET PO SCH ×2 (10:02→21:15)
[2020-05-27] MEDS: DIVALPROEX 500 MG TABLET PO SCH (10:02)
[2020-05-27] MEDS: CITALOPRAM 40 MG TABLET PO SCH (10:02)
[2020-05-27] MEDS: ASPIRIN EC 81 MG TABLET PO SCH (10:02)
[2020-05-27] MEDS: DOCUSATE SODIUM 100 MG CAPSULE PO SCH ×2 (10:02→21:15)
[2020-05-27] MEDS: MULTIVITAMIN (OCUVITE) TABLET PO SCH (10:02)
[2020-05-27] MEDS: TAMSULOSIN 0.4 MG CAPSULE PO SCH ×2 (10:02→21:15)
[2020-05-27] MEDS: FUROSEMIDE 40 MG TABLET PO SCH (10:02)
[2020-05-27] MEDS: PSYLLIUM POWDER 3.7 GM/PACK PO SCH (10:03)
[2020-05-27] MEDS: LORATADINE 10 MG TABLET PO SCH (10:03)
[2020-05-27] MEDS: ACETAMINOPHEN 325 MG TABLET PO PRN ×3 (12:48→23:40)
[2020-05-27] MEDS: ROSUVASTATIN 10 MG TABLET PO SCH (21:14)
[2020-05-27] MEDS: SERTRALINE 25 MG TABLET PO SCH (21:15)
[2020-05-27] MEDS: traZODone 50 MG TABLET PO SCH (21:15)
[2020-05-27] MEDS: CYCLOBENZAPRINE 10 MG TABLET PO SCH (21:15)
[2020-05-27] MEDS: MICONAZOLE 2% VAG CREAM 45 GM TUBE VAG SCH (21:16)
[2020-05-28] MEDS: ALBUTEROL/IPRATROPIUM 3 ML NEB RESP TX SCH ×4 (02:08→19:22)
[2020-05-28 05:49] LABS: Basophils # 0.1 10*3/uL (0.0-0.2); Basophils % 0.4 % (0.0-0.8); Eosinophils # 0.4 10*3/uL (0.0-0.87); Eosinophils % 2.9 % (0.00-10.9); Hemoglobin 9.3 GM/DL (12.0-16.0); Immature Granulocytes Absolute 0.36 #; Lymphocytes # 2.7 10*3/uL (1.4-4.0); Lymphocytes % 22.9 % (21.3-54.2); Mean Corpuscular HGB Conc 32.1 GM/DL (32-36); Mean Corpuscular Volume 89.2 FL (87-102); Monocytes % 7.9 % (1.7-12.7); Neutrophils % 62.9 % (38.7-73.9); Platelet Count 327 T/CUMM (130-400); Red Blood Count 3.25 MC/CUMM (3.8-5.5); Red Cell Distribution Width 13.6 % (9.3-17.3)
[2020-05-28] MEDS: NITROGLYCERIN 2% OINT 1 INCH/GM PACK TOP SCH ×3 (06:04→17:45)
[2020-05-28] MEDS: LEVOTHYROXINE 50 MCG TABLET PO SCH (06:04)
[2020-05-28 07:32] LABS: Calcium 8.6 MG/DL (8.5-10.1)
[2020-05-28 07:33] LABS: Albumin 2.3 G/DL (3.4-5.0); Bilirubin,Total 0.41 MG/DL (0.2-1.0); Osmolality,Calculated 279.7 MOS/KG (273-304); Total Protein 6.1 G/DL (6.4-8.3)
[2020-05-28] MEDS ORDERED: AZITHROMYCIN 250 MG TABLET PO SCH (09:00)
[2020-05-28] MEDS: TAMSULOSIN 0.4 MG CAPSULE PO SCH ×2 (10:11→20:34)
[2020-05-28] MEDS: ASPIRIN EC 81 MG TABLET PO SCH (10:11)
[2020-05-28] MEDS: MULTIVITAMIN (OCUVITE) TABLET PO SCH (10:11)
[2020-05-28] MEDS: BISOPROLOL 5 MG TABLET PO SCH ×2 (10:11→20:32)
[2020-05-28] MEDS: DIGOXIN 0.25 MG TABLET PO SCH (10:11)
[2020-05-28] MEDS: CITALOPRAM 40 MG TABLET PO SCH (10:12)
[2020-05-28] MEDS: LORATADINE 10 MG TABLET PO SCH (10:12)
[2020-05-28] MEDS: DIVALPROEX 500 MG TABLET PO SCH (10:12)
[2020-05-28] MEDS: GABAPENTIN 100 MG CAPSULE PO SCH ×2 (10:12→20:33)
[2020-05-28] MEDS: PSYLLIUM POWDER 3.7 GM/PACK PO SCH (10:13)
[2020-05-28] MEDS: DOCUSATE SODIUM 100 MG CAPSULE PO SCH ×2 (10:13→20:34)
[2020-05-28] MEDS: LEVOFLOXACIN INJ 500 MG in PREMIX 1 EACH IV SCH (10:13)
[2020-05-28] MEDS: MAGNESIUM HYDROXIDE SUSP 30 ML UDCUP PO SCH (10:14)
[2020-05-28] MEDS: POLYETHYLENE GLYCOL POWDER 17 GM PACK PO SCH (10:14)
[2020-05-28] MEDS: FUROSEMIDE 40 MG TABLET PO SCH ×2 (10:25→16:43)
[2020-05-28] MEDS: HEPARIN DRIP 25,000 UNITS/500 ML PREMIX IV SCH (16:05)
[2020-05-28] MEDS: ACETAMINOPHEN 325 MG TABLET PO PRN (18:39)
[2020-05-28] MEDS: ROSUVASTATIN 10 MG TABLET PO SCH (20:32)
[2020-05-28] MEDS: traZODone 50 MG TABLET PO SCH (20:34)
[2020-05-28] MEDS: CYCLOBENZAPRINE 10 MG TABLET PO SCH (20:35)
[2020-05-28] MEDS: MICONAZOLE 2% VAG CREAM 45 GM TUBE VAG SCH (20:35)
[2020-05-28] MEDS: SERTRALINE 25 MG TABLET PO SCH (20:38)
[2020-05-29] MEDS: ALBUTEROL/IPRATROPIUM 3 ML NEB RESP TX SCH ×4 (00:12→19:44)
[2020-05-29] MEDS: NITROGLYCERIN 2% OINT 1 INCH/GM PACK TOP SCH ×4 (00:48→18:11)
[2020-05-29] MEDS: LEVOTHYROXINE 50 MCG TABLET PO SCH (06:05)
[2020-05-29] MEDS: HEPARIN DRIP 25,000 UNITS/500 ML PREMIX IV SCH ×2 (09:49→16:37)
[2020-05-29] MEDS: ASCORBIC ACID 500 MG TABLET PO SCH ×2 (09:53→21:16)
[2020-05-29] MEDS: POLYETHYLENE GLYCOL POWDER 17 GM PACK PO SCH (09:54)
[2020-05-29] MEDS: PSYLLIUM POWDER 3.7 GM/PACK PO SCH (09:54)
[2020-05-29] MEDS: DIVALPROEX 500 MG TABLET PO SCH (09:54)
[2020-05-29] MEDS: GABAPENTIN 100 MG CAPSULE PO SCH ×2 (09:55→21:15)
[2020-05-29] MEDS: DOCUSATE SODIUM 100 MG CAPSULE PO SCH ×2 (09:55→21:17)
[2020-05-29] MEDS: TAMSULOSIN 0.4 MG CAPSULE PO SCH ×2 (09:55→21:17)
[2020-05-29] MEDS: ASPIRIN EC 81 MG TABLET PO SCH (09:55)
[2020-05-29] MEDS: LORATADINE 10 MG TABLET PO SCH (09:55)
[2020-05-29] MEDS: CITALOPRAM 40 MG TABLET PO SCH (09:55)
[2020-05-29] MEDS: BISOPROLOL 5 MG TABLET PO SCH ×2 (09:55→21:14)
[2020-05-29] MEDS: DIGOXIN 0.25 MG TABLET PO SCH (09:56)
[2020-05-29] MEDS: MAGNESIUM HYDROXIDE SUSP 30 ML UDCUP PO SCH (09:56)
[2020-05-29] MEDS: MULTIVITAMIN (OCUVITE) TABLET PO SCH (09:57)
[2020-05-29] MEDS: FUROSEMIDE 40 MG TABLET PO SCH (09:58)
[2020-05-29] MEDS: LEVOFLOXACIN INJ 500 MG in PREMIX 1 EACH IV SCH (09:58)
[2020-05-29] MEDS: ACETAMINOPHEN 325 MG TABLET PO PRN (21:13)
[2020-05-29] MEDS: ROSUVASTATIN 10 MG TABLET PO SCH (21:14)
[2020-05-29] MEDS: traZODone 50 MG TABLET PO SCH (21:17)
[2020-05-29] MEDS: MICONAZOLE 2% VAG CREAM 45 GM TUBE VAG SCH (21:17)
[2020-05-29] MEDS: CYCLOBENZAPRINE 10 MG TABLET PO SCH (21:17)
[2020-05-29] MEDS: SERTRALINE 25 MG TABLET PO SCH (21:17)
[2020-05-30] MEDS: NITROGLYCERIN 2% OINT 1 INCH/GM PACK TOP SCH ×5 (00:14→23:48)
[2020-05-30] MEDS: ALBUTEROL/IPRATROPIUM 3 ML NEB RESP TX SCH ×4 (00:18→19:17)
[2020-05-30 04:18] LABS: Basophils # 0.1 10*3/uL (0.0-0.2); Basophils % 0.6 % (0.0-0.8); Eosinophils # 0.5 10*3/uL (0.0-0.87); Eosinophils % 3.2 % (0.00-10.9); Hematocrit 28.2 VOL% (35.7-47.0); Hemoglobin 9.1 GM/DL (12.0-16.0); Immature Granulocytes % 4.9 %; Immature Granulocytes Absolute 0.71 #; Lymphocytes # 2.9 10*3/uL (1.4-4.0); Mean Corpuscular HGB Conc 32.3 GM/DL (32-36); Mean Corpuscular Volume 89.5 FL (87-102); Mean Platelet Volume 9.1 FL (9.6-12.0); Monocytes % 7.8 % (1.7-12.7); Neutrophils % 63.5 % (38.7-73.9); Platelet Count 330 T/CUMM (130-400); Red Blood Count 3.15 MC/CUMM (3.8-5.5); Red Cell Distribution Width 13.5 % (9.3-17.3); White Blood Count 14.5 T/CUMM (4-12)
[2020-05-30 04:42] LABS: Alanine Aminotransferase 18 U/L (13-56); Albumin 2.3 G/DL (3.4-5.0); Alkaline Phosphatase 65 U/L (45-117); Aspartate Amino Transferase 15 U/L (0-37); Bilirubin,Total < 0.39 MG/DL (0.2-1.0); Blood Urea Nitrogen 14 MG/DL (7-18); Calcium 8.3 MG/DL (8.5-10.1); Estimated Glom Filtration Rate 57 ML/MIN; Glucose 151 MG/DL (74-106); Osmolality,Calculated 278.7 MOS/KG (273-304); Total Protein 5.9 G/DL (6.4-8.3)
[2020-05-30] MEDS: HEPARIN DRIP 25,000 UNITS/500 ML PREMIX IV SCH (04:58)
[2020-05-30 06:01] LABS: Anisocytosis 1+; Eosinophils 2 % (0-10); Lymphocytes 22 % (20-55); Platelet Estimate Normal; Segmented Neutrophils 68 % (50-85); Total Cells Counted 100
[2020-05-30] MEDS: LEVOTHYROXINE 50 MCG TABLET PO SCH (06:06)
[2020-05-30] MEDS: ACETAMINOPHEN 325 MG TABLET PO PRN ×2 (06:07→20:30)
[2020-05-30] MEDS ORDERED: FUROSEMIDE 40 MG TABLET PO SCH (09:00)
[2020-05-30] MEDS: PSYLLIUM POWDER 3.7 GM/PACK PO SCH (09:26)
[2020-05-30] MEDS: POLYETHYLENE GLYCOL POWDER 17 GM PACK PO SCH (09:26)
[2020-05-30] MEDS: DIGOXIN 0.25 MG TABLET PO SCH (09:27)
[2020-05-30] MEDS: DIVALPROEX 500 MG TABLET PO SCH (09:27)
[2020-05-30] MEDS: BISOPROLOL 5 MG TABLET PO SCH ×2 (09:27→20:26)
[2020-05-30] MEDS: DOCUSATE SODIUM 100 MG CAPSULE PO SCH ×2 (09:27→20:25)
[2020-05-30] MEDS: GABAPENTIN 100 MG CAPSULE PO SCH ×2 (09:27→20:26)
[2020-05-30] MEDS: TAMSULOSIN 0.4 MG CAPSULE PO SCH ×2 (09:27→20:28)
[2020-05-30] MEDS: ASCORBIC ACID 500 MG TABLET PO SCH ×2 (09:28→20:27)
[2020-05-30] MEDS: CITALOPRAM 40 MG TABLET PO SCH (09:28)
[2020-05-30] MEDS: ASPIRIN EC 81 MG TABLET PO SCH (09:28)
[2020-05-30] MEDS: MULTIVITAMIN (OCUVITE) TABLET PO SCH (09:28)
[2020-05-30] MEDS: LORATADINE 10 MG TABLET PO SCH (09:28)
[2020-05-30] MEDS: LEVOFLOXACIN INJ 500 MG in PREMIX 1 EACH IV SCH (09:28)
[2020-05-30] MEDS: SODIUM CHLORIDE 0.9% 1,000 ML IV SCH (09:29)
[2020-05-30] MEDS: MAGNESIUM HYDROXIDE SUSP 30 ML UDCUP PO SCH (09:29)
[2020-05-30] MEDS: CHLORHEXIDINE 4% SOLN 118 ML BOTTLE TOP SCH ×3 (09:29→21:23)
[2020-05-30] MEDS: CHLORHEXIDINE 0.12% ORAL RINSE 60 ML BOTTLE SWISH/SPIT SCH ×2 (09:41→20:25)
[2020-05-30 11:50] LABS: Bilirubin,Urine Negative (Negative); Blood, Urine Negative (Negative); Glucose,Urine (UA) Negative (Negative); Ketones,Urine Negative (Negative); Nitrite,Urine Negative (Negative); Protein,Urine Negative; RBC,Urine <1 /HPF (0-4); Squamous Epithelial Cell,Urine Occasional /HPF (0-10); Urine Appearance CLEAR (Clear); Urine Color Straw (Yellow); Urine Specific Gravity 1.004 (1.001-1.035); Urine Urobilinogen < 2.0 EU/DL (0.2-1.0)
[2020-05-30 16:22] LABS: Allen Test Positive
[2020-05-30 16:23] LABS: ABG Base Excess 6.3 MMOL/L (-2.5-2.5); ABG HCO3 30.5 MMOL/L (20-26); ABG PCO2 42.6 MM HG (35-48); ABG PH 7.473 (7.35-7.45); ABG PO2 68.9 MM HG (80-95); ABG TCO2 31.8 MMOL/L (23-27)
[2020-05-30] MEDS: ROSUVASTATIN 10 MG TABLET PO SCH (20:27)
[2020-05-30] MEDS: CYCLOBENZAPRINE 10 MG TABLET PO SCH (20:27)
[2020-05-30] MEDS: SERTRALINE 25 MG TABLET PO SCH (20:28)
[2020-05-30] MEDS: traZODone 50 MG TABLET PO SCH (20:28)
[2020-05-31] MEDS: NITROGLYCERIN 2% OINT 1 INCH/GM PACK TOP SCH ×2 (00:14→05:38)
[2020-05-31] MEDS: ALBUTEROL/IPRATROPIUM 3 ML NEB RESP TX SCH ×3 (00:56→07:52)
[2020-05-31] MEDS ORDERED: PAPAVERINE 60 MG/2 ML VIAL ONE (04:18)
[2020-05-31] MEDS ORDERED: VANCOMYCIN 1,000 MG VIAL ONE (04:19)
[2020-05-31] MEDS ORDERED: VANCOMYCIN 500 MG VIAL ONE (04:19)
[2020-05-31] MEDS ORDERED: VANCOMYCIN INJ 1,000 MG in SODIUM CHLORIDE 0.9% 250 ML IV ONE (05:00)
[2020-05-31] MEDS: BISOPROLOL 5 MG TABLET PO SCH ×2 (05:52→11:12)
[2020-05-31] MEDS ORDERED: MIDAZOLAM 10 MG/2 ML VIAL ONE (05:58)
[2020-05-31] MEDS ORDERED: SUFentanil 250 MCG/5 ML AMP ONE (05:58)
[2020-05-31 07:47] LABS: ABG Base Excess 3.8 MMOL/L (-2.5-2.5); ABG HCO3 27.9 MMOL/L (20-26); ABG PCO2 37.3 MM HG (35-48); ABG PH 7.474 (7.35-7.45); ABG TCO2 23.7 MMOL/L (23-27); Glucose Heart Surgery 116 MG/DL (74-106); Hematocrit Heart Surgery 40.4 PERCENT (37-47); Hemoglobin Heart Surgery 13.1 G/DL (12.0-16.0); Ionized Calcium Arterial 1.11 MMOL/L (1.21-1.46); PCO2 Patient Temp Arterial 37.3 MMHG; PH Patient Temp Arterial 7.474; Patient Temperature 37 CELCIUS; Sodium Heart/CVR 135 MMOL/L (135-145)
[2020-05-31] MEDS ORDERED: NITROPRUSSIDE 50 MG/2 ML VIAL ONE (08:14)
[2020-05-31] MEDS ORDERED: PHENYLEPHRINE DRIP 40 MG/250 ML PREMIX IV ONE (08:15)
[2020-05-31] MEDS ORDERED: POTASSIUM CHLORIDE RIDER 100 ML IV ONE (08:15)
[2020-05-31] MEDS ORDERED: CALCIUM CHLORIDE 1,000 MG/10 ML SYRINGE IV ONE (08:15)
[2020-05-31] MEDS ORDERED: SODIUM BICARBONATE 50 MEQ/50 ML VIAL IV ONE ×3 (08:15→15:38)
[2020-05-31] MEDS ORDERED: ALBUMIN 5% 12.5 GM/250 ML VIAL IV ONE (08:48)
[2020-05-31] MEDS ORDERED: HEPARIN/NACL 0.9% 2 UNITS/ML 500 ML IV ONE (09:05)
[2020-05-31] MEDS ORDERED: AMINOCAPROIC ACID 5,000 MG/20 ML VIAL ONE (09:05)
[2020-05-31 09:08] LABS: PCO2 Patient Temp Venous 34.6 MM HG; PH Patient Temp Venous 7.493; PO2 Patient Temp Venous 33.2 MM HG; Potassium Heart/CVR 4.5 MMOL/L (3.5-5.1); VBG Base Excess 3.3 MEQ/L (0-4); VBG HCO3 27.1 MEQ/L (24-28); VBG Oxygen Saturation 71.7 %; VBG PCO2 38.1 MMHG (41-51); VBG PH 7.463; VBG PO2 38.1 MMHG (17-40)
[2020-05-31 09:42] LABS: Hematocrit Heart Surgery 23.8 PERCENT (37-47); Hemoglobin Heart Surgery 7.6 G/DL (12.0-16.0); PCO2 Patient Temp Venous 31.6 MM HG; PH Patient Temp Venous 7.498; PO2 Patient Temp Venous 34.7 MM HG; Potassium Heart/CVR 4.9 MMOL/L (3.5-5.1); VBG Base Excess 1.7 MEQ/L (0-4); VBG HCO3 25.7 MEQ/L (24-28); VBG Oxygen Saturation 80.2 %; VBG PCO2 36.5 MMHG (41-51); VBG PH 7.453; VBG PO2 42.8 MMHG (17-40)
[2020-05-31 10:10] LABS: PCO2 Patient Temp Venous 30.6 MM HG; PH Patient Temp Venous 7.5; PO2 Patient Temp Venous 37.7 MM HG; Potassium Heart/CVR 4.9 MMOL/L (3.5-5.1); VBG Base Excess 0.5 MEQ/L (0-4); VBG HCO3 23.3 MEQ/L (24-28); VBG Oxygen Saturation 74.7 %; VBG PCO2 30.6 MMHG (41-51); VBG PH 7.5; VBG PO2 37.7 MMHG (17-40)
[2020-05-31] MEDS ORDERED: LIDOCAINE 2% 5 ML VIAL ONE ×2 (11:07→12:39)
[2020-05-31] MEDS ORDERED: DEXTROSE 5% KCL 20 MEQ 20 MEQ/1,000 ML BAG IV ONE (11:07)
[2020-05-31] MEDS ORDERED: MANNITOL 100 GM/500 ML BAG IV ONE (11:07)
[2020-05-31] MEDS ORDERED: ALBUMIN 25% 25 GM/100 ML VIAL IV ONE (11:08)
[2020-05-31] MEDS ORDERED: HEPARIN 10,000 UNIT/10 ML VIAL ONE (11:08)
[2020-05-31] MEDS ORDERED: PROTAMINE SULFATE 250 MG/25 ML VIAL IV ONE (11:08)
[2020-05-31] MEDS ORDERED: FUROSEMIDE 20 MG/2 ML VIAL ONE (11:08)
[2020-05-31] MEDS ORDERED: methylPREDNISolone SOD SUC 1,000 MG/8 ML VIAL ONE (11:08)
[2020-05-31] MEDS ORDERED: MAGNESIUM SULFATE 5 GM/10 ML VIAL IV ONE (11:08)
[2020-05-31] MEDS ORDERED: PROTAMINE SULFATE 50 MG/5 ML VIAL IV ONE (11:08)
[2020-05-31] MEDS: SODIUM CHLORIDE 0.9% 1,000 ML IV SCH (11:10)
[2020-05-31] MEDS: ASPIRIN EC 81 MG TABLET PO SCH (11:10)
[2020-05-31] MEDS: LEVOTHYROXINE 50 MCG TABLET PO SCH (11:10)
[2020-05-31] MEDS: CITALOPRAM 40 MG TABLET PO SCH (11:10)
[2020-05-31] MEDS: LEVOFLOXACIN INJ 500 MG in PREMIX 1 EACH IV SCH (11:10)
[2020-05-31] MEDS: DIVALPROEX 500 MG TABLET PO SCH (11:11)
[2020-05-31] MEDS: DIGOXIN 0.25 MG TABLET PO SCH (11:11)
[2020-05-31] MEDS: TAMSULOSIN 0.4 MG CAPSULE PO SCH (11:11)
[2020-05-31] MEDS: POLYETHYLENE GLYCOL POWDER 17 GM PACK PO SCH (11:11)
[2020-05-31] MEDS: DOCUSATE SODIUM 100 MG CAPSULE PO SCH (11:11)
[2020-05-31] MEDS: PSYLLIUM POWDER 3.7 GM/PACK PO SCH (11:11)
[2020-05-31] MEDS: LORATADINE 10 MG TABLET PO SCH (11:11)
[2020-05-31] MEDS: GABAPENTIN 100 MG CAPSULE PO SCH (11:11)
[2020-05-31] MEDS: MAGNESIUM HYDROXIDE SUSP 30 ML UDCUP PO SCH (11:11)
[2020-05-31] MEDS: ASCORBIC ACID 500 MG TABLET PO SCH (11:12)
[2020-05-31] MEDS: MULTIVITAMIN (OCUVITE) TABLET PO SCH (11:12)
[2020-05-31] MEDS: CHLORHEXIDINE 0.12% ORAL RINSE 60 ML BOTTLE SWISH/SPIT SCH ×2 (11:12→22:05)
[2020-05-31 11:22] LABS: ABG Base Excess -4.2 MMOL/L (-2.5-2.5); ABG PH 7.383 (7.35-7.45); ABG TCO2 18.6 MMOL/L (23-27); Glucose Heart Surgery 273 MG/DL (74-106); Hematocrit Heart Surgery 29.2 PERCENT (37-47); Hemoglobin Heart Surgery 9.4 G/DL (12.0-16.0); Ionized Calcium Arterial 1.15 MMOL/L (1.21-1.46); PH Patient Temp Arterial 7.383; Patient Temperature 37 CELCIUS; Potassium Heart/CVR 3.5 MMOL/L (3.5-5.1); Sodium Heart/CVR 135 MMOL/L (135-145)
[2020-05-31] MEDS ORDERED: MAGNESIUM SULF RIDER 4 GM in PREMIX 1 EACH IV PRN (11:32)
[2020-05-31] MEDS ORDERED: POTASSIUM CHLORIDE RIDER 10 MEQ in PREMIX 1 EACH IV PRN (11:32)
[2020-05-31] MEDS ORDERED: INSULIN REGULAR 100 UNIT/ML IV PRN (11:32)
[2020-05-31] MEDS ORDERED: ONDANSETRON 4 MG/2 ML VIAL IV PRN (11:32)
[2020-05-31] MEDS ORDERED: MIDAZOLAM 10 MG/2 ML VIAL IV PRN (11:32)
[2020-05-31] MEDS ORDERED: DEXTROSE 50% 25 GM/50 ML VIAL IV PRN ×2 (11:32)
[2020-05-31] MEDS ORDERED: LACTATED RINGERS 250 ML IV PRN (11:32)
[2020-05-31] MEDS ORDERED: MAGNESIUM SULF RIDER 2 GM in PREMIX 1 EACH IV PRN (11:32)
[2020-05-31] MEDS ORDERED: MORPHINE 10 MG/1 ML VIAL IV PRN (11:32)
[2020-05-31] MEDS ORDERED: PHENYLEPHRINE DRIP 40 MG/250 ML PREMIX IV PRN (11:32)
[2020-05-31] MEDS ORDERED: VECURONIUM 10 MG VIAL IV PRN ×2 (11:32)
[2020-05-31] MEDS ORDERED: CHLORHEXIDINE 4% SOLN 118 ML BOTTLE TOP PRN (11:32)
[2020-05-31] MEDS ORDERED: INSULIN REGULAR 100 UNIT/ML IV ONE (11:32)
[2020-05-31] MEDS ORDERED: NITROPRUSSIDE 100 MG in DEXTROSE 5% 250 ML IV PRN (11:32)
[2020-05-31] MEDS ORDERED: INSULIN REGULAR DRIP 100 ML IV SCH (11:32)
[2020-05-31] MEDS ORDERED: ACETAMINOPHEN 650 MG SUPP RECTAL PRN (11:32)
[2020-05-31] MEDS ORDERED: CALCIUM CHLORIDE 1,000 MG/10 ML SYRINGE IV PRN (11:32)
[2020-05-31] MEDS ORDERED: MIDAZOLAM 2 MG/2 ML VIAL IV PRN (11:32)
[2020-05-31] MEDS: SODIUM CHLORIDE 0.45% 1,000 ML IV SCH ×2 (11:50)
[2020-05-31] MEDS ORDERED: EPINEPHrine 1 MG/ML VIAL ONE ×2 (11:54→12:40)
[2020-05-31 12:13] LABS: ABG HCO3 19.2 MMOL/L (20-26); ABG Oxygen Saturation 97.7 % (95-100); ABG PCO2 41.2 MM HG (35-48); ABG PH 7.286 (7.35-7.45); ABG PO2 123.5 MM HG (80-95); ABG TCO2 20.5 MMOL/L (23-27); Glucose Heart Surgery 267 MG/DL (74-106); Hemoglobin Heart Surgery 10.9 G/DL (12.0-16.0); Potassium Heart/CVR 3.3 MMOL/L (3.5-5.1)
[2020-05-31 12:14] LABS: Basophils # 0.2 10*3/uL (0.0-0.2); Basophils % 0.6 % (0.0-0.8); Eosinophils # 0.4 10*3/uL (0.0-0.87); Eosinophils % 1.1 % (0.00-10.9); Hematocrit 32.4 VOL% (35.7-47.0); Hemoglobin 10.3 GM/DL (12.0-16.0); Immature Granulocytes % 8.4 %; Immature Granulocytes Absolute 2.59 #; Lymphocytes % 9.7 % (21.3-54.2); Mean Corpuscular HGB Conc 31.8 GM/DL (32-36); Mean Corpuscular Volume 93.6 FL (87-102); Mean Platelet Volume 8.8 FL (9.6-12.0); Monocytes % 3.7 % (1.7-12.7); Neutrophils % 76.5 % (38.7-73.9); Platelet Count 309 T/CUMM (130-400); Red Blood Count 3.46 MC/CUMM (3.8-5.5); Red Cell Distribution Width 14.4 % (9.3-17.3)
[2020-05-31] MEDS: POTASSIUM CHLORIDE RIDER 20 MEQ in PREMIX 1 EACH IV PRN (12:20)
[2020-05-31 12:29] LABS: INR 1.1; Partial Thromboplastin Time 27.6 SECS (23.9-33.8)
[2020-05-31 12:38] LABS: Albumin 2.7 G/DL (3.4-5.0); Band Neutrophils 24 % (0-10); Bilirubin,Total 0.6 MG/DL (0.2-1.0); Calcium 8.3 MG/DL (8.5-10.1); Eosinophils 1 % (0-10); Lymphocytes 9 % (20-55); Metamyelocytes 3 %; Myelocytes 1 %; Osmolality,Calculated 284.7 MOS/KG (273-304); Platelet Estimate Normal; Segmented Neutrophils 59 % (50-85); Total Cells Counted 100; Total Protein 5.9 G/DL (6.4-8.3)
[2020-05-31] MEDS ORDERED: SEVOFLURANE 1 UNIT/15 MINUTE INH ONE (12:39)
[2020-05-31] MEDS ORDERED: CALCIUM CHLORIDE 1,000 MG/10 ML VIAL IV ONE (12:39)
[2020-05-31 12:40] LABS: Anisocytosis 2+; CKMB % 8.1 %; Poikilocytosis Slight; Polychromasia Slight
[2020-05-31] MEDS ORDERED: LACTATED RINGERS 1,000 ML IV ONE (12:40)
[2020-05-31] MEDS ORDERED: SODIUM CHLORIDE 0.9% 200 ML IV ONE (12:40)
[2020-05-31] MEDS ORDERED: PHENYLEPHRINE 1 MG/10 ML SYRINGE IV ONE (12:40)
[2020-05-31] MEDS ORDERED: SODIUM CHLORIDE 0.9% 1,000 ML IV ONE (12:40)
[2020-05-31] MEDS ORDERED: ETOMIDATE 40 MG/20 ML VIAL IV ONE (12:40)
[2020-05-31] MEDS ORDERED: SODIUM CHLORIDE 0.9% 500 ML IV ONE (12:40)
[2020-05-31 12:47] LABS: Troponin I 15.1 NG/ML (0.00-0.045)
[2020-05-31] MEDS: ALBUMIN 5% 12.5 GM in PREMIX 1 EACH IV PRN ×4 (13:00→20:57)
[2020-05-31] MEDS: LACTATED RINGERS 1,000 ML IV PRN ×2 (13:00→14:10)
[2020-05-31 14:13] LABS: ABG Base Excess -8.5 MMOL/L (-2.5-2.5); ABG HCO3 18.3 MMOL/L (20-26); ABG Oxygen Saturation 96.3 % (95-100); ABG PCO2 43.2 MM HG (35-48); ABG PH 7.245 (7.35-7.45); ABG PO2 105.7 MM HG (80-95); ABG TCO2 19.6 MMOL/L (23-27); Glucose Heart Surgery 270 MG/DL (74-106); Hemoglobin Heart Surgery 10.4 G/DL (12.0-16.0); Potassium Heart/CVR 4.2 MMOL/L (3.5-5.1)
[2020-05-31 15:12] LABS: ABG Base Excess -7.3 MMOL/L (-2.5-2.5); ABG HCO3 18.4 MMOL/L (20-26); ABG Oxygen Saturation 96.2 % (95-100); ABG PCO2 39.7 MM HG (35-48); ABG PH 7.285 (7.35-7.45); ABG PO2 95.1 MM HG (80-95); ABG TCO2 17.4 MMOL/L (23-27); Glucose Heart Surgery 286 MG/DL (74-106); Hematocrit Heart Surgery 30.6 PERCENT (37-47); Hemoglobin Heart Surgery 9.9 G/DL (12.0-16.0); Potassium Heart/CVR 4.6 MMOL/L (3.5-5.1)
[2020-05-31 16:42] LABS: ABG Base Excess -3.6 MMOL/L (-2.5-2.5); ABG HCO3 21.4 MMOL/L (20-26); ABG Oxygen Saturation 97.9 % (95-100); ABG PCO2 43.4 MM HG (35-48); ABG PH 7.321 (7.35-7.45); ABG TCO2 20.4 MMOL/L (23-27); Glucose Heart Surgery 270 MG/DL (74-106); Hematocrit Heart Surgery 32.8 PERCENT (37-47); Hemoglobin Heart Surgery 10.6 G/DL (12.0-16.0); Potassium Heart/CVR 4.7 MMOL/L (3.5-5.1)
[2020-05-31] MEDS ORDERED: DEXMEDETOMIDINE 400 MCG in SODIUM CHLORIDE 0.9% 96 ML IV PRN (18:09)
[2020-05-31 19:12] LABS: ABG Base Excess -0.6 MMOL/L (-2.5-2.5); ABG Oxygen Saturation 98.5 % (95-100); ABG PCO2 40.3 MM HG (35-48); ABG PH 7.388 (7.35-7.45); ABG TCO2 21.9 MMOL/L (23-27); Glucose Heart Surgery 208 MG/DL (74-106); Hematocrit Heart Surgery 33.1 PERCENT (37-47); Hemoglobin Heart Surgery 10.7 G/DL (12.0-16.0); Potassium Heart/CVR 4.4 MMOL/L (3.5-5.1)
[2020-05-31] MEDS: MORPHINE 4 MG/1 ML VIAL IV PRN ×2 (19:22→23:28)
[2020-05-31 20:49] LABS: ABG HCO3 24.4 MMOL/L (20-26); ABG Oxygen Saturation 98.4 % (95-100); ABG PCO2 46.1 MM HG (35-48); ABG PH 7.356 (7.35-7.45); ABG TCO2 23.4 MMOL/L (23-27); Glucose Heart Surgery 180 MG/DL (74-106); Hematocrit Heart Surgery 32.6 PERCENT (37-47); Hemoglobin Heart Surgery 10.6 G/DL (12.0-16.0); Potassium Heart/CVR 4.4 MMOL/L (3.5-5.1)
[2020-05-31 20:52] LABS: Hematocrit Heart Surgery 32.3 PERCENT (37-47); Hemoglobin Heart Surgery 10.5 G/DL (12.0-16.0); PCO2 Patient Temp Venous 54.2 MM HG; PH Patient Temp Venous 7.318; PO2 Patient Temp Venous 37.6 MM HG; Potassium Heart/CVR 4.3 MMOL/L (3.5-5.1); VBG Base Excess 0.8 MEQ/L (0-4); VBG HCO3 24.5 MEQ/L (24-28); VBG Oxygen Saturation 64.3 %; VBG PCO2 54.2 MMHG (41-51); VBG PH 7.318; VBG PO2 37.6 MMHG (17-40)
[2020-05-31] MEDS ORDERED: NITROGLYCERIN DRIP 50 MG/250 ML BOTTLE IV PRN (21:10)
[2020-05-31] MEDS ORDERED: NITROGLYCERIN DRIP 50 MG/250 ML BOTTLE IV ONE (21:12)
[2020-05-31] MEDS ORDERED: DOBUTamine 500 MG/250 ML PREMIX IV ONE (21:12)
[2020-05-31] MEDS: DOBUTamine 500 MG/250 ML PREMIX IV PRN (21:23)
[2020-05-31] MEDS ORDERED: FUROSEMIDE 40 MG/4 ML VIAL IV ONE (22:01)
[2020-05-31 23:04] LABS: CKMB % 4.5 %
[2020-05-31 23:06] LABS: Troponin I 54.8 NG/ML (0.00-0.045)
[2020-05-31] MEDS: VANCOMYCIN INJ 1,000 MG in SODIUM CHLORIDE 0.9% 250 ML IV SCH (23:50)
[2020-06-01 01:07] LABS: ABG Base Excess 1.1 MMOL/L (-2.5-2.5); ABG HCO3 25.4 MMOL/L (20-26); ABG Oxygen Saturation 98.1 % (95-100); ABG PCO2 45.4 MM HG (35-48); ABG PH 7.376 (7.35-7.45); ABG TCO2 24.2 MMOL/L (23-27); Glucose Heart Surgery 158 MG/DL (74-106)
[2020-06-01] MEDS: MORPHINE 4 MG/1 ML VIAL IV PRN ×6 (01:17→17:51)
[2020-06-01 03:47] LABS: ABG Base Excess 2.2 MMOL/L (-2.5-2.5); ABG HCO3 26.4 MMOL/L (20-26); ABG Oxygen Saturation 97.5 % (95-100); ABG PCO2 46.1 MM HG (35-48); ABG PH 7.386 (7.35-7.45); ABG PO2 91.1 MM HG (80-95); ABG TCO2 25.3 MMOL/L (23-27); Glucose Heart Surgery 149 MG/DL (74-106); Hemoglobin Heart Surgery 9.7 G/DL (12.0-16.0); Potassium Heart/CVR 3.9 MMOL/L (3.5-5.1)
[2020-06-01 04:03] LABS: Basophils # 0.1 10*3/uL (0.0-0.2); Basophils % 0.3 % (0.0-0.8); Hematocrit 29.4 VOL% (35.7-47.0); Hemoglobin 9.6 GM/DL (12.0-16.0); Immature Granulocytes % 4.3 %; Immature Granulocytes Absolute 0.91 #; Lymphocytes # 0.6 10*3/uL (1.4-4.0); Lymphocytes % 2.7 % (21.3-54.2); Mean Corpuscular HGB Conc 32.7 GM/DL (32-36); Mean Corpuscular Volume 91.3 FL (87-102); Mean Platelet Volume 9.3 FL (9.6-12.0); Monocytes % 6.6 % (1.7-12.7); Neutrophils % 86.1 % (38.7-73.9); Platelet Count 143 T/CUMM (130-400); Red Blood Count 3.22 MC/CUMM (3.8-5.5); Red Cell Distribution Width 14.5 % (9.3-17.3); White Blood Count 21.2 T/CUMM (4-12)
[2020-06-01] MEDS ORDERED: FUROSEMIDE 40 MG/4 ML VIAL IV ONE ×2 (04:14→15:54)
[2020-06-01 04:21] LABS: Albumin 3.2 G/DL (3.4-5.0); Bilirubin,Direct 0.13 MG/DL (0.0-0.20); Bilirubin,Total 0.4 MG/DL (0.2-1.0); Calcium 8.2 MG/DL (8.5-10.1); Osmolality,Calculated 280.5 MOS/KG (273-304)
[2020-06-01 04:31] LABS: CKMB % 3.8 %
[2020-06-01 04:32] LABS: Troponin I 51.4 NG/ML (0.00-0.045)
[2020-06-01 04:44] LABS: Band Neutrophils 3 % (0-10); Lymphocytes 4 % (20-55); Segmented Neutrophils 83 % (50-85); Total Cells Counted 100
[2020-06-01 04:45] LABS: Hypochromasia 1+
[2020-06-01 05:33] LABS: Hematocrit Heart Surgery 17.7 PERCENT (37-47); Hemoglobin Heart Surgery 5.6 G/DL (12.0-16.0)
[2020-06-01 06:04] LABS: ABG Base Excess 2.3 MMOL/L (-2.5-2.5); ABG HCO3 26.8 MMOL/L (20-26); ABG Oxygen Saturation 97.5 % (95-100); ABG PCO2 41.2 MM HG (35-48); ABG PH 7.431 (7.35-7.45); ABG PO2 113.2 MM HG (80-95); ABG TCO2 28.1 MMOL/L (23-27); Glucose Heart Surgery 129 MG/DL (74-106); Hemoglobin Heart Surgery 10.2 G/DL (12.0-16.0); Potassium Heart/CVR 3.8 MMOL/L (3.5-5.1)
[2020-06-01] MEDS: INSULIN REGULAR 100 UNIT/ML SUBCUT SCH ×4 (08:00→20:57)
[2020-06-01] MEDS ORDERED: INSULIN REGULAR 100 UNIT/ML SUBCUT SCH (08:00)
[2020-06-01] MEDS: ASPIRIN EC 325 MG TABLET PO SCH (09:51)
[2020-06-01] MEDS: PANTOPRAZOLE 40 MG TABLET PO SCH (09:51)
[2020-06-01] MEDS: CHLORHEXIDINE 0.12% ORAL RINSE 60 ML BOTTLE SWISH/SPIT SCH ×2 (09:52→21:04)
[2020-06-01] MEDS: ASCORBIC ACID 500 MG TABLET PO SCH ×2 (10:43→21:05)
[2020-06-01] MEDS: VANCOMYCIN INJ 1,000 MG in SODIUM CHLORIDE 0.9% 250 ML IV SCH (11:52)
[2020-06-01 12:01] LABS: CKMB % 2.9 %
[2020-06-01] MEDS: SODIUM CHLORIDE 0.45% 1,000 ML IV SCH ×2 (13:05)
[2020-06-01 15:46] LABS: Hematocrit Heart Surgery 30.8 PERCENT (37-47); PCO2 Patient Temp Venous 48.9 MM HG; PH Patient Temp Venous 7.396; PO2 Patient Temp Venous 28.6 MM HG; Potassium Heart/CVR 4.2 MMOL/L (3.5-5.1); VBG Base Excess 4.4 MEQ/L (0-4); VBG HCO3 27.4 MEQ/L (24-28); VBG Oxygen Saturation 46.7 %; VBG PCO2 48.9 MMHG (41-51); VBG PH 7.396; VBG PO2 28.6 MMHG (17-40)
[2020-06-01] MEDS: ALBUMIN 5% 12.5 GM in PREMIX 1 EACH IV PRN (18:12)
[2020-06-01] MEDS: ACETAMINOPHEN 325 MG TABLET PO PRN ×2 (18:19→19:45)
[2020-06-01] MEDS: DOBUTamine 500 MG/250 ML PREMIX IV PRN (18:47)
[2020-06-01] MEDS: GABAPENTIN 300 MG CAPSULE PO SCH (20:57)
[2020-06-01] MEDS: DOCUSATE SODIUM 100 MG CAPSULE PO SCH (20:57)
[2020-06-01] MEDS: ROSUVASTATIN 10 MG TABLET PO SCH (20:59)
[2020-06-02] MEDS: VANCOMYCIN INJ 1,000 MG in SODIUM CHLORIDE 0.9% 250 ML IV SCH ×2 (01:50→12:15)
[2020-06-02] MEDS: INSULIN REGULAR 100 UNIT/ML SUBCUT SCH ×6 (01:57→20:11)
[2020-06-02] MEDS ORDERED: FUROSEMIDE 40 MG/4 ML VIAL IV PRN (02:30)
[2020-06-02 04:44] LABS: Basophils % 0.2 % (0.0-0.8); Hematocrit 33.8 VOL% (35.7-47.0); Hemoglobin 11.1 GM/DL (12.0-16.0); Immature Granulocytes % 2.7 %; Immature Granulocytes Absolute 0.58 #; Lymphocytes # 1.7 10*3/uL (1.4-4.0); Lymphocytes % 7.9 % (21.3-54.2); Mean Corpuscular HGB Conc 32.8 GM/DL (32-36); Mean Corpuscular Volume 92.1 FL (87-102); Mean Platelet Volume 9.4 FL (9.6-12.0); Monocytes % 8.5 % (1.7-12.7); Neutrophils % 80.7 % (38.7-73.9); Platelet Count 160 T/CUMM (130-400); Red Blood Count 3.67 MC/CUMM (3.8-5.5); Red Cell Distribution Width 14.4 % (9.3-17.3); White Blood Count 21.5 T/CUMM (4-12)
[2020-06-02 05:09] LABS: Albumin 2.8 G/DL (3.4-5.0); Bilirubin,Direct 0.14 MG/DL (0.0-0.20); Bilirubin,Total 0.5 MG/DL (0.2-1.0); Calcium 7.6 MG/DL (8.5-10.1); Osmolality,Calculated 274.1 MOS/KG (273-304); Total Protein 5.8 G/DL (6.4-8.3)
[2020-06-02 05:13] LABS: Band Neutrophils 1 % (0-10); Hypochromasia 1+; Lymphocytes 8 % (20-55); Microcytosis 1+; Platelet Estimate Adequate; Segmented Neutrophils 86 % (50-85); Total Cells Counted 100
[2020-06-02] MEDS: LEVOTHYROXINE 50 MCG TABLET PO SCH (05:51)
[2020-06-02] MEDS: oxyCODONE/ACETAMINOPHEN 5-325 MG TABLET PO PRN (06:22)
[2020-06-02] MEDS: DOBUTamine 500 MG/250 ML PREMIX IV PRN (07:02)
[2020-06-02] MEDS: PANTOPRAZOLE 40 MG TABLET PO SCH (08:22)
[2020-06-02] MEDS: ASCORBIC ACID 500 MG TABLET PO SCH ×2 (08:22→20:11)
[2020-06-02] MEDS: DOCUSATE SODIUM 100 MG CAPSULE PO SCH ×2 (08:22→20:11)
[2020-06-02] MEDS: GABAPENTIN 300 MG CAPSULE PO SCH ×2 (08:22→20:11)
[2020-06-02] MEDS: ISOSORBIDE MONONITRATE 30 MG TABLET PO SCH (08:22)
[2020-06-02] MEDS: ASPIRIN EC 325 MG TABLET PO SCH (08:23)
[2020-06-02] MEDS: CHLORHEXIDINE 0.12% ORAL RINSE 60 ML BOTTLE SWISH/SPIT SCH ×2 (08:35→20:11)
[2020-06-02] MEDS: SODIUM CHLORIDE 0.45% 1,000 ML IV SCH (10:33)
[2020-06-02] MEDS: MORPHINE 4 MG/1 ML VIAL IV PRN ×2 (12:16→17:44)
[2020-06-02] MEDS: FUROSEMIDE 40 MG TABLET PO SCH (16:17)
[2020-06-02] MEDS: ROSUVASTATIN 10 MG TABLET PO SCH (20:10)
[2020-06-03] MEDS: INSULIN REGULAR 100 UNIT/ML SUBCUT SCH ×3 (00:18→14:35)
[2020-06-03 04:41] LABS: Basophils # 0.1 10*3/uL (0.0-0.2); Basophils % 0.3 % (0.0-0.8); Eosinophils # 0.2 10*3/uL (0.0-0.87); Eosinophils % 0.9 % (0.00-10.9); Hematocrit 34.3 VOL% (35.7-47.0); Hemoglobin 11.3 GM/DL (12.0-16.0); Immature Granulocytes % 2.4 %; Immature Granulocytes Absolute 0.45 #; Mean Corpuscular HGB Conc 32.9 GM/DL (32-36); Mean Corpuscular Volume 90.3 FL (87-102); Mean Platelet Volume 10.4 FL (9.6-12.0); Monocytes % 5.7 % (1.7-12.7); Neutrophils % 79.7 % (38.7-73.9); Platelet Count 167 T/CUMM (130-400); Red Cell Distribution Width 14.3 % (9.3-17.3); White Blood Count 18.5 T/CUMM (4-12)
[2020-06-03 04:52] LABS: Albumin 2.7 G/DL (3.4-5.0); Bilirubin,Direct 0.16 MG/DL (0.0-0.20); Bilirubin,Total 0.8 MG/DL (0.2-1.0); Calcium 8.2 MG/DL (8.5-10.1); Osmolality,Calculated 273.2 MOS/KG (273-304); Total Protein 6.1 G/DL (6.4-8.3)
[2020-06-03] MEDS: LEVOTHYROXINE 50 MCG TABLET PO SCH (05:58)
[2020-06-03] MEDS: MORPHINE 4 MG/1 ML VIAL IV PRN (05:59)
[2020-06-03] MEDS ORDERED: AMIODARONE INJ 150 MG in DEXTROSE 5% 100 ML IV ONE (06:30)
[2020-06-03] MEDS: AMIODARONE INJ 450 MG in DEXTROSE 5% 241 ML IV SCH ×3 (06:54→14:41)
[2020-06-03] MEDS: ASPIRIN EC 325 MG TABLET PO SCH (08:03)
[2020-06-03] MEDS: ASCORBIC ACID 500 MG TABLET PO SCH ×2 (08:03→20:52)
[2020-06-03] MEDS: oxyCODONE/ACETAMINOPHEN 5-325 MG TABLET PO PRN ×2 (08:04→20:53)
[2020-06-03] MEDS: ISOSORBIDE MONONITRATE 30 MG TABLET PO SCH (08:04)
[2020-06-03] MEDS: FUROSEMIDE 40 MG TABLET PO SCH (08:05)
[2020-06-03] MEDS: GABAPENTIN 300 MG CAPSULE PO SCH ×2 (08:05→20:53)
[2020-06-03] MEDS: PANTOPRAZOLE 40 MG TABLET PO SCH (08:05)
[2020-06-03] MEDS: DOCUSATE SODIUM 100 MG CAPSULE PO SCH ×2 (08:05→20:52)
[2020-06-03] MEDS ORDERED: KETOROLAC 30 MG/1 ML VIAL IV PRN (08:15)
[2020-06-03] MEDS: SIMETHICONE CHEW 125 MG TABLET PO PRN ×2 (08:25→21:00)
[2020-06-03] MEDS: CHLORHEXIDINE 0.12% ORAL RINSE 60 ML BOTTLE SWISH/SPIT SCH ×3 (08:27→20:53)
[2020-06-03] MEDS: POTASSIUM CHLORIDE RIDER 20 MEQ in PREMIX 1 EACH IV PRN (08:36)
[2020-06-03] MEDS ORDERED: DEXTROSE 50% 25 GM/50 ML VIAL IV PRN (10:15)
[2020-06-03] MEDS ORDERED: ALUMINUM/MAGNES/SIMETH MAX STR 30 ML UDCUP PO PRN (10:15)
[2020-06-03] MEDS ORDERED: ONDANSETRON 4 MG/2 ML VIAL IV PRN (10:15)
[2020-06-03] MEDS ORDERED: MAGNESIUM SULF RIDER 2 GM in PREMIX 1 EACH IV PRN (10:15)
[2020-06-03] MEDS ORDERED: GLUCAGON 1 MG VIAL IM PRN (10:15)
[2020-06-03] MEDS ORDERED: MAGNESIUM SULF RIDER 4 GM in PREMIX 1 EACH IV PRN (10:15)
[2020-06-03] MEDS: KETOROLAC 30 MG/1 ML VIAL IV SCH ×2 (14:34→20:51)
[2020-06-03] MEDS: ROSUVASTATIN 10 MG TABLET PO SCH (20:52)
[2020-06-03] MEDS: MICONAZOLE 2% VAG CREAM 45 GM TUBE VAG SCH (22:53)
[2020-06-04] MEDS: KETOROLAC 30 MG/1 ML VIAL IV SCH (01:10)
[2020-06-04] MEDS: oxyCODONE/ACETAMINOPHEN 5-325 MG TABLET PO PRN ×3 (01:10→21:35)
[2020-06-04] MEDS: AMIODARONE INJ 450 MG in DEXTROSE 5% 241 ML IV SCH ×2 (05:19→21:20)
[2020-06-04 05:37] LABS: Basophils # 0.1 10*3/uL (0.0-0.2); Basophils % 0.5 % (0.0-0.8); Eosinophils # 0.3 10*3/uL (0.0-0.87); Eosinophils % 1.6 % (0.00-10.9); Hematocrit 34.5 VOL% (35.7-47.0); Hemoglobin 11.1 GM/DL (12.0-16.0); Immature Granulocytes % 3.3 %; Immature Granulocytes Absolute 0.58 #; Lymphocytes # 1.8 10*3/uL (1.4-4.0); Lymphocytes % 10.4 % (21.3-54.2); Mean Corpuscular HGB Conc 32.2 GM/DL (32-36); Mean Corpuscular Volume 91.8 FL (87-102); Mean Platelet Volume 10.8 FL (9.6-12.0); Monocytes % 4.7 % (1.7-12.7); NRBC # 0.02 10*3/uL; Neutrophils % 79.5 % (38.7-73.9); Platelet Count 201 T/CUMM (130-400); Red Blood Count 3.76 MC/CUMM (3.8-5.5); Red Cell Distribution Width 14.2 % (9.3-17.3); White Blood Count 17.5 T/CUMM (4-12)
[2020-06-04 06:06] LABS: Calcium 8.2 MG/DL (8.5-10.1); Osmolality,Calculated 268.9 MOS/KG (273-304)
[2020-06-04 06:11] LABS: Alanine Aminotransferase 584 U/L (13-56); Albumin 2.5 G/DL (3.4-5.0); Alkaline Phosphatase 93 U/L (45-117); Aspartate Amino Transferase 486 U/L (0-37); Bilirubin,Indirect 0.6 MG/DL (0.0-1.0); Blood Urea Nitrogen 35 MG/DL (7-18); Calcium 8.2 MG/DL (8.5-10.1); Estimated Glom Filtration Rate 33 ML/MIN; Glucose 160 MG/DL (74-106); Osmolality,Calculated 270.8 MOS/KG (273-304); Total Protein 5.9 G/DL (6.4-8.3)
[2020-06-04] MEDS: LEVOTHYROXINE 50 MCG TABLET PO SCH (06:15)
[2020-06-04 06:19] LABS: Hypochromasia 1+; Lymphocytes 15 % (20-55); Microcytosis 1+; Platelet Estimate Adequate; Segmented Neutrophils 80 % (50-85); Total Cells Counted 100
[2020-06-04] MEDS ORDERED: DOBUTamine 500 MG/250 ML PREMIX IV ONE (09:32)
[2020-06-04] MEDS: ASPIRIN EC 325 MG TABLET PO SCH (09:57)
[2020-06-04] MEDS: GABAPENTIN 300 MG CAPSULE PO SCH ×2 (09:58→21:08)
[2020-06-04] MEDS: DOCUSATE SODIUM 100 MG CAPSULE PO SCH ×2 (09:58→21:08)
[2020-06-04] MEDS: ASCORBIC ACID 500 MG TABLET PO SCH ×2 (09:59→21:08)
[2020-06-04] MEDS: FUROSEMIDE 40 MG TABLET PO SCH (10:00)
[2020-06-04] MEDS: ISOSORBIDE MONONITRATE 30 MG TABLET PO SCH (10:01)
[2020-06-04] MEDS: CHLORHEXIDINE 0.12% ORAL RINSE 60 ML BOTTLE SWISH/SPIT SCH ×2 (10:05→21:08)
[2020-06-04] MEDS: ACETAMINOPHEN 325 MG TABLET PO PRN (12:31)
[2020-06-04] MEDS: INSULIN LISPRO 100 UNIT/ML SUBCUT SCH ×3 (12:49→21:16)
[2020-06-04] MEDS ORDERED: oxyCODONE/ACETAMINOPHEN 5-325 MG TABLET PO PRN (13:22)
[2020-06-04] MEDS: ROSUVASTATIN 10 MG TABLET PO SCH (21:07)
[2020-06-04] MEDS: MICONAZOLE 2% VAG CREAM 45 GM TUBE VAG SCH (21:08)
[2020-06-05] MEDS: ACETAMINOPHEN 325 MG TABLET PO PRN ×2 (00:30→20:50)
[2020-06-05 06:42] LABS: Calcium 8.2 MG/DL (8.5-10.1); Osmolality,Calculated 270.7 MOS/KG (273-304)
[2020-06-05] MEDS: LEVOTHYROXINE 50 MCG TABLET PO SCH (06:45)
[2020-06-05 06:47] LABS: Basophils # 0.1 10*3/uL (0.0-0.2); Basophils % 0.4 % (0.0-0.8); Eosinophils # 0.3 10*3/uL (0.0-0.87); Eosinophils % 1.6 % (0.00-10.9); Hematocrit 34.1 VOL% (35.7-47.0); Hemoglobin 11.4 GM/DL (12.0-16.0); Immature Granulocytes % 2.7 %; Immature Granulocytes Absolute 0.47 #; Lymphocytes # 1.7 10*3/uL (1.4-4.0); Lymphocytes % 9.8 % (21.3-54.2); Mean Corpuscular HGB Conc 33.4 GM/DL (32-36); Mean Corpuscular Volume 89.3 FL (87-102); Mean Platelet Volume 10.6 FL (9.6-12.0); Monocytes % 5.2 % (1.7-12.7); NRBC # 0.03 10*3/uL; Neutrophils % 80.3 % (38.7-73.9); Platelet Count 244 T/CUMM (130-400); Red Blood Count 3.82 MC/CUMM (3.8-5.5); Red Cell Distribution Width 14.2 % (9.3-17.3); White Blood Count 17.7 T/CUMM (4-12)
[2020-06-05 06:50] LABS: Alanine Aminotransferase 394 U/L (13-56); Albumin 2.4 G/DL (3.4-5.0); Alkaline Phosphatase 104 U/L (45-117); Aspartate Amino Transferase 134 U/L (0-37); Bilirubin,Indirect 0.5 MG/DL (0.0-1.0); Blood Urea Nitrogen 32 MG/DL (7-18); Calcium 8.4 MG/DL (8.5-10.1); Estimated Glom Filtration Rate 48 ML/MIN; Glucose 127 MG/DL (74-106); Osmolality,Calculated 268.8 MOS/KG (273-304); Total Protein 6.1 G/DL (6.4-8.3)
[2020-06-05] MEDS: INSULIN LISPRO 100 UNIT/ML SUBCUT SCH ×4 (10:23→20:57)
[2020-06-05] MEDS: ASCORBIC ACID 500 MG TABLET PO SCH ×2 (10:24→20:51)
[2020-06-05] MEDS: GABAPENTIN 300 MG CAPSULE PO SCH ×2 (10:24→20:51)
[2020-06-05] MEDS: POTASSIUM CHLORIDE 20 MEQ TABLET PO PRN ×2 (10:25→13:27)
[2020-06-05] MEDS: ASPIRIN EC 325 MG TABLET PO SCH (10:26)
[2020-06-05] MEDS: DOCUSATE SODIUM 100 MG CAPSULE PO SCH ×2 (10:26→20:51)
[2020-06-05] MEDS: ISOSORBIDE MONONITRATE 30 MG TABLET PO SCH (10:26)
[2020-06-05] MEDS: FUROSEMIDE 40 MG TABLET PO SCH (10:26)
[2020-06-05] MEDS: oxyCODONE/ACETAMINOPHEN 5-325 MG TABLET PO PRN ×2 (10:34→18:36)
[2020-06-05] MEDS: MAGNESIUM HYDROXIDE SUSP 30 ML UDCUP PO PRN (10:36)
[2020-06-05] MEDS: CHLORHEXIDINE 0.12% ORAL RINSE 60 ML BOTTLE SWISH/SPIT SCH ×2 (10:36→20:57)
[2020-06-05] MEDS: AMIODARONE INJ 450 MG in DEXTROSE 5% 241 ML IV SCH (12:23)
[2020-06-05] MEDS: ROSUVASTATIN 10 MG TABLET PO SCH (20:50)
[2020-06-05] MEDS: ZALEPLON 5 MG CAPSULE PO PRN (20:51)
[2020-06-05] MEDS: MICONAZOLE 2% VAG CREAM 45 GM TUBE VAG SCH (21:24)
[2020-06-06 04:44] LABS: Basophils # 0.1 10*3/uL (0.0-0.2); Basophils % 0.6 % (0.0-0.8); Eosinophils # 0.2 10*3/uL (0.0-0.87); Eosinophils % 1.5 % (0.00-10.9); Hematocrit 34.6 VOL% (35.7-47.0); Hemoglobin 11.2 GM/DL (12.0-16.0); Immature Granulocytes % 3.8 %; Immature Granulocytes Absolute 0.61 #; Lymphocytes # 1.7 10*3/uL (1.4-4.0); Lymphocytes % 10.4 % (21.3-54.2); Mean Corpuscular HGB Conc 32.4 GM/DL (32-36); Mean Corpuscular Volume 90.6 FL (87-102); Monocytes % 6.1 % (1.7-12.7); Neutrophils % 77.6 % (38.7-73.9); Platelet Count 298 T/CUMM (130-400); Red Blood Count 3.82 MC/CUMM (3.8-5.5)
[2020-06-06 04:56] LABS: Calcium 8.1 MG/DL (8.5-10.1); Osmolality,Calculated 280.8 MOS/KG (273-304)
[2020-06-06 05:12] LABS: Eosinophils 1 % (0-10); Lymphocytes 7 % (20-55); Segmented Neutrophils 87 % (50-85); Total Cells Counted 100
[2020-06-06 05:13] LABS: Platelet Estimate Normal
[2020-06-06] MEDS: LEVOTHYROXINE 50 MCG TABLET PO SCH (06:30)
[2020-06-06] MEDS: INSULIN LISPRO 100 UNIT/ML SUBCUT SCH ×4 (08:31→21:37)
[2020-06-06] MEDS: DOCUSATE SODIUM 100 MG CAPSULE PO SCH ×2 (08:33→20:36)
[2020-06-06] MEDS: ASPIRIN EC 325 MG TABLET PO SCH (08:33)
[2020-06-06] MEDS: ISOSORBIDE MONONITRATE 30 MG TABLET PO SCH (08:33)
[2020-06-06] MEDS: FUROSEMIDE 40 MG TABLET PO SCH (08:34)
[2020-06-06] MEDS: GABAPENTIN 300 MG CAPSULE PO SCH ×2 (08:34→20:36)
[2020-06-06] MEDS: ASCORBIC ACID 500 MG TABLET PO SCH ×2 (08:34→20:36)
[2020-06-06] MEDS: ACETAMINOPHEN 325 MG TABLET PO PRN ×2 (08:51→19:28)
[2020-06-06] MEDS: CHLORHEXIDINE 0.12% ORAL RINSE 60 ML BOTTLE SWISH/SPIT SCH ×2 (08:52→20:37)
[2020-06-06] MEDS ORDERED: FUROSEMIDE 40 MG/4 ML VIAL IV ONE (09:50)
[2020-06-06] MEDS: ALBUTEROL/IPRATROPIUM 3 ML NEB RESP TX SCH ×3 (10:00→18:54)
[2020-06-06] MEDS: oxyCODONE/ACETAMINOPHEN 5-325 MG TABLET PO PRN (12:27)
[2020-06-06] MEDS: POLYETHYLENE GLYCOL POWDER 17 GM PACK PO SCH (12:28)
[2020-06-06] MEDS ORDERED: ALBUTEROL/IPRATROPIUM 3 ML NEB RESP TX ONE (18:41)
[2020-06-06] MEDS: FUROSEMIDE 40 MG/4 ML VIAL IV SCH (20:34)
[2020-06-06] MEDS: ROSUVASTATIN 10 MG TABLET PO SCH (20:35)
[2020-06-06] MEDS: MICONAZOLE 2% VAG CREAM 45 GM TUBE VAG SCH (20:37)
[2020-06-06] MEDS: HYDROCORTISONE 25 MG SUPP RECTAL PRN (20:49)
[2020-06-07] MEDS: oxyCODONE/ACETAMINOPHEN 5-325 MG TABLET PO PRN ×2 (03:10→09:01)
[2020-06-07 05:34] LABS: Basophils # 0.1 10*3/uL (0.0-0.2); Basophils % 0.8 % (0.0-0.8); Eosinophils # 0.4 10*3/uL (0.0-0.87); Eosinophils % 2.4 % (0.00-10.9); Hematocrit 35.9 VOL% (35.7-47.0); Hemoglobin 11.5 GM/DL (12.0-16.0); Immature Granulocytes % 6.2 %; Immature Granulocytes Absolute 0.89 #; Lymphocytes # 1.5 10*3/uL (1.4-4.0); Lymphocytes % 10.1 % (21.3-54.2); Mean Corpuscular Volume 89.8 FL (87-102); Mean Platelet Volume 9.6 FL (9.6-12.0); Monocytes % 6.5 % (1.7-12.7); Platelet Count 330 T/CUMM (130-400); Red Cell Distribution Width 14.2 % (9.3-17.3); White Blood Count 14.5 T/CUMM (4-12)
[2020-06-07] MEDS: ALBUTEROL/IPRATROPIUM 3 ML NEB RESP TX SCH ×4 (05:35→19:15)
[2020-06-07 05:54] LABS: Alanine Aminotransferase 185 U/L (13-56); Albumin 2.3 G/DL (3.4-5.0); Alkaline Phosphatase 99 U/L (45-117); Aspartate Amino Transferase 43 U/L (0-37); Bilirubin,Indirect 0.2 MG/DL (0.0-1.0); Blood Urea Nitrogen 19 MG/DL (7-18); Calcium 8.3 MG/DL (8.5-10.1); Estimated Glom Filtration Rate 59 ML/MIN; Glucose 157 MG/DL (74-106); Osmolality,Calculated 274.1 MOS/KG (273-304); Total Protein 6.2 G/DL (6.4-8.3)
[2020-06-07 05:56] LABS: Band Neutrophils 2 % (0-10); Eosinophils 4 % (0-10); Hypochromasia 1+; Lymphocytes 6 % (20-55); Platelet Estimate Adequate; Segmented Neutrophils 80 % (50-85); Total Cells Counted 100
[2020-06-07] MEDS: LEVOTHYROXINE 50 MCG TABLET PO SCH (06:10)
[2020-06-07] MEDS: FUROSEMIDE 40 MG/4 ML VIAL IV SCH ×2 (08:03→16:07)
[2020-06-07] MEDS: ASPIRIN EC 325 MG TABLET PO SCH (08:49)
[2020-06-07] MEDS: POLYETHYLENE GLYCOL POWDER 17 GM PACK PO SCH (08:49)
[2020-06-07] MEDS: GABAPENTIN 300 MG CAPSULE PO SCH ×2 (08:49→21:42)
[2020-06-07] MEDS: ISOSORBIDE MONONITRATE 30 MG TABLET PO SCH (08:49)
[2020-06-07] MEDS: CITALOPRAM 40 MG TABLET PO SCH (08:49)
[2020-06-07] MEDS: DIVALPROEX 500 MG TABLET PO SCH (08:49)
[2020-06-07] MEDS: ASCORBIC ACID 500 MG TABLET PO SCH ×2 (08:49→21:42)
[2020-06-07] MEDS: DOCUSATE SODIUM 100 MG CAPSULE PO SCH ×2 (08:49→21:42)
[2020-06-07] MEDS: CHLORHEXIDINE 0.12% ORAL RINSE 60 ML BOTTLE SWISH/SPIT SCH ×2 (08:49→21:44)
[2020-06-07] MEDS: INSULIN LISPRO 100 UNIT/ML SUBCUT SCH ×4 (11:04→22:09)
[2020-06-07] MEDS ORDERED: DEXTROSE 50% 25 GM/50 ML VIAL IV PRN (14:40)
[2020-06-07] MEDS: ACETAMINOPHEN 325 MG TABLET PO PRN (15:00)
[2020-06-07] MEDS: MAGNESIUM HYDROXIDE SUSP 30 ML UDCUP PO PRN (16:55)
[2020-06-07] MEDS ORDERED: AMIODARONE INJ 450 MG in DEXTROSE 5% 241 ML IV SCH (17:30)
[2020-06-07] MEDS ORDERED: CYCLOBENZAPRINE 10 MG TABLET PO SCH (21:00)
[2020-06-07] MEDS: ZALEPLON 5 MG CAPSULE PO PRN (21:42)
[2020-06-07] MEDS: HYDROCORTISONE 25 MG SUPP RECTAL PRN (21:42)
[2020-06-07] MEDS: ROSUVASTATIN 10 MG TABLET PO SCH (21:42)
[2020-06-07] MEDS: MICONAZOLE 2% VAG CREAM 45 GM TUBE VAG SCH (21:44)
[2020-06-08] MEDS: ALBUTEROL/IPRATROPIUM 3 ML NEB RESP TX SCH ×2 (00:04→07:10)
[2020-06-08] MEDS: LEVOTHYROXINE 50 MCG TABLET PO SCH (05:45)
[2020-06-08] MEDS: oxyCODONE/ACETAMINOPHEN 5-325 MG TABLET PO PRN (05:45)
[2020-06-08 05:56] LABS: Basophils # 0.1 10*3/uL (0.0-0.2); Basophils % 0.8 % (0.0-0.8); Eosinophils # 0.5 10*3/uL (0.0-0.87); Eosinophils % 3.3 % (0.00-10.9); Hematocrit 35.9 VOL% (35.7-47.0); Hemoglobin 11.8 GM/DL (12.0-16.0); Immature Granulocytes % 7.3 %; Immature Granulocytes Absolute 1.05 #; Lymphocytes % 14.1 % (21.3-54.2); Mean Corpuscular HGB Conc 32.9 GM/DL (32-36); Mean Corpuscular Volume 90.4 FL (87-102); Mean Platelet Volume 9.1 FL (9.6-12.0); Monocytes % 7.1 % (1.7-12.7); Neutrophils % 67.4 % (38.7-73.9); Platelet Count 375 T/CUMM (130-400); Red Blood Count 3.97 MC/CUMM (3.8-5.5); Red Cell Distribution Width 14.2 % (9.3-17.3); White Blood Count 14.5 T/CUMM (4-12)
[2020-06-08 06:19] LABS: Eosinophils 4 % (0-10); Lymphocytes 18 % (20-55); Metamyelocytes 1 %; Myelocytes 1 %; Nucleated Red Blood Cells 1 (0-5); Platelet Estimate Normal; Segmented Neutrophils 72 % (50-85); Total Cells Counted 100
[2020-06-08 06:20] LABS: Alanine Aminotransferase 133 U/L (13-56); Albumin 2.3 G/DL (3.4-5.0); Alkaline Phosphatase 100 U/L (45-117); Aspartate Amino Transferase 32 U/L (0-37); Bilirubin,Indirect 0.3 MG/DL (0.0-1.0); Blood Urea Nitrogen 18 MG/DL (7-18); Calcium 8.8 MG/DL (8.5-10.1); Estimated Glom Filtration Rate 59 ML/MIN; Glucose 175 MG/DL (74-106); Osmolality,Calculated 271.4 MOS/KG (273-304); Total Protein 6.4 G/DL (6.4-8.3)
[2020-06-08 08:03] VITALS: BP 123/62
[2020-06-08] MEDS: ASCORBIC ACID 500 MG TABLET PO SCH (08:42)
[2020-06-08] MEDS: DOCUSATE SODIUM 100 MG CAPSULE PO SCH (08:42)
[2020-06-08] MEDS: ISOSORBIDE MONONITRATE 30 MG TABLET PO SCH (08:43)
[2020-06-08] MEDS: INSULIN LISPRO 100 UNIT/ML SUBCUT SCH (08:43)
[2020-06-08] MEDS: CITALOPRAM 40 MG TABLET PO SCH (08:43)
[2020-06-08] MEDS: GABAPENTIN 300 MG CAPSULE PO SCH (08:43)
[2020-06-08] MEDS: ASPIRIN EC 325 MG TABLET PO SCH (08:43)
[2020-06-08] MEDS: FUROSEMIDE 40 MG/4 ML VIAL IV SCH (08:43)
[2020-06-08] MEDS: CHLORHEXIDINE 0.12% ORAL RINSE 60 ML BOTTLE SWISH/SPIT SCH (08:44)
[2020-06-08] MEDS: POLYETHYLENE GLYCOL POWDER 17 GM PACK PO SCH (08:44)
[2020-06-08] MEDS: DIVALPROEX 500 MG TABLET PO SCH (08:44)
[2020-06-08] MEDS ORDERED: AMIODARONE 200 MG TABLET PO SCH (09:00)
[2020-06-08] MEDS ORDERED: MULTIVITAMIN (CENTRUM) TABLET PO SCH (09:00)
== END 2020-06-08 12:39 | DRG 233 ==
LOC: N.TELES 19:28 → SUATTDRO 19:28 → N.2E 22:00 → N.TELEN 05-23 01:46 → N.2E 05-23 02:37 → N.TELES 05-23 03:54 → N.CVR 05-31 10:31 → N.ICU 06-01 15:09 → N.TELES 06-03 15:56
PROVIDERS: ADMIT Internal Medicine; ATTEND Internal Medicine
PROC: CLCCHCL (ICD-10-PCS; 2020-05-24 10:45)

== ENCOUNTER 2020-06-25 12:44 | Inpatient (IN) ==
[2020-06-25 13:11] LABS: Basophils # 0.1 10*3/uL (0.0-0.2); Basophils % 0.9 % (0.0-0.8); Eosinophils # 0.7 10*3/uL (0.0-0.87); Eosinophils % 4.6 % (0.00-10.9); Hematocrit 36.2 VOL% (35.7-47.0); Hemoglobin 11.5 GM/DL (12.0-16.0); Immature Granulocytes % 1.4 %; Lymphocytes # 2.2 10*3/uL (1.4-4.0); Lymphocytes % 14.7 % (21.3-54.2); Mean Corpuscular HGB Conc 31.8 GM/DL (32-36); Mean Corpuscular Volume 90.3 FL (87-102); Mean Platelet Volume 8.9 FL (9.6-12.0); Monocytes % 7.6 % (1.7-12.7); Neutrophils % 70.8 % (38.7-73.9); Platelet Count 334 T/CUMM (130-400); Red Blood Count 4.01 MC/CUMM (3.8-5.5); Red Cell Distribution Width 14.3 % (9.3-17.3); White Blood Count 14.7 T/CUMM (4-12)
[2020-06-25 13:31] LABS: Partial Thromboplastin Time 27.3 SECS (23.9-33.8)
[2020-06-25 13:37] LABS: Alanine Aminotransferase 15 U/L (13-56); Alkaline Phosphatase 97 U/L (45-117); Aspartate Amino Transferase 13 U/L (0-37); Bilirubin,Total < 0.39 MG/DL (0.2-1.0); Blood Urea Nitrogen 20 MG/DL (7-18); Estimated Glom Filtration Rate 51 ML/MIN; Glucose 115 MG/DL (74-106); Osmolality,Calculated 276.8 MOS/KG (273-304); Total Protein 6.4 G/DL (6.4-8.3)
[2020-06-25] MEDS ORDERED: FUROSEMIDE 100 MG/10 ML VIAL IV STA (14:13)
[2020-06-25] MEDS ORDERED: ONDANSETRON 4 MG TABLET PO PRN (14:20)
[2020-06-25] MEDS ORDERED: oxyCODONE/ACETAMINOPHEN 5-325 MG TABLET PO PRN (14:20)
[2020-06-25] MEDS ORDERED: ALUMINUM/MAGNES/SIMETH MAX STR 30 ML UDCUP PO PRN (14:20)
[2020-06-25] MEDS ORDERED: FUROSEMIDE 40 MG/4 ML VIAL ONE (14:59)
[2020-06-25] MEDS: methylPREDNISolone 4 MG TABLET PO SCH ×2 (18:30→23:48)
[2020-06-25] MEDS: AMIODARONE 200 MG TABLET PO SCH (20:45)
[2020-06-25] MEDS: GABAPENTIN 300 MG CAPSULE PO SCH (20:45)
[2020-06-25] MEDS: traZODone 50 MG TABLET PO SCH (20:45)
[2020-06-25] MEDS: DOCUSATE SODIUM 100 MG CAPSULE PO SCH (20:45)
[2020-06-25] MEDS: ROSUVASTATIN 10 MG TABLET PO SCH (20:45)
[2020-06-25] MEDS: ONDANSETRON 4 MG/2 ML VIAL IV PRN (20:46)
[2020-06-26] MEDS: LEVOTHYROXINE 50 MCG TABLET PO SCH (05:28)
[2020-06-26 06:13] LABS: Basophils # 0.1 10*3/uL (0.0-0.2); Basophils % 0.5 % (0.0-0.8); Eosinophils % 0.3 % (0.00-10.9); Hematocrit 34.6 VOL% (35.7-47.0); Immature Granulocytes % 1.2 %; Immature Granulocytes Absolute 0.11 #; Lymphocytes # 0.8 10*3/uL (1.4-4.0); Lymphocytes % 8.6 % (21.3-54.2); Mean Corpuscular HGB Conc 31.8 GM/DL (32-36); Mean Corpuscular Volume 90.6 FL (87-102); Mean Platelet Volume 9.5 FL (9.6-12.0); Monocytes % 4.8 % (1.7-12.7); Neutrophils % 84.6 % (38.7-73.9); Platelet Count 312 T/CUMM (130-400); Red Blood Count 3.82 MC/CUMM (3.8-5.5); Red Cell Distribution Width 14.3 % (9.3-17.3); White Blood Count 9.5 T/CUMM (4-12)
[2020-06-26 06:35] LABS: Albumin 2.9 G/DL (3.4-5.0); Bilirubin,Total 0.7 MG/DL (0.2-1.0); Calcium 9.3 MG/DL (8.5-10.1); Osmolality,Calculated 278.8 MOS/KG (273-304); Total Protein 6.9 G/DL (6.4-8.3)
[2020-06-26] MEDS ORDERED: FUROSEMIDE 20 MG TABLET PO SCH (09:00)
[2020-06-26] MEDS: DOCUSATE SODIUM 100 MG CAPSULE PO SCH ×2 (09:05→21:53)
[2020-06-26] MEDS: CITALOPRAM 20 MG TABLET PO SCH (09:06)
[2020-06-26] MEDS: AMIODARONE 200 MG TABLET PO SCH ×2 (09:06→21:53)
[2020-06-26] MEDS: PANTOPRAZOLE 40 MG TABLET PO SCH (09:06)
[2020-06-26] MEDS: GABAPENTIN 300 MG CAPSULE PO SCH ×2 (09:06→21:53)
[2020-06-26] MEDS: ASPIRIN EC 325 MG TABLET PO SCH (09:06)
[2020-06-26] MEDS: MULTIVITAMIN (CENTRUM) TABLET PO SCH (09:06)
[2020-06-26] MEDS: DIVALPROEX 500 MG TABLET PO SCH (09:06)
[2020-06-26] MEDS: ISOSORBIDE MONONITRATE 30 MG TABLET PO SCH (09:06)
[2020-06-26] MEDS: methylPREDNISolone 4 MG TABLET PO SCH ×4 (09:06→21:53)
[2020-06-26] MEDS: ROSUVASTATIN 10 MG TABLET PO SCH (21:51)
[2020-06-26] MEDS: traZODone 50 MG TABLET PO SCH (21:53)
[2020-06-26] MEDS ORDERED: FUROSEMIDE 40 MG/4 ML VIAL IV ONE (23:54)
[2020-06-26] MEDS: ALBUTEROL/IPRATROPIUM 3 ML NEB RESP TX PRN (23:55)
[2020-06-27] MEDS ORDERED: AMIODARONE INJ 150 MG in DEXTROSE 5% 100 ML IV ONE (00:10)
[2020-06-27] MEDS ORDERED: DILTIAZEM 25 MG/5 ML VIAL IV ONE (00:11)
[2020-06-27] MEDS ORDERED: AMIODARONE INJ 450 MG in DEXTROSE 5% 241 ML IV SCH (00:30)
[2020-06-27] MEDS: dilTIAZem Drip 125 MG/125 ML PREMIX IV SCH ×2 (00:51→15:11)
[2020-06-27] MEDS ORDERED: FUROSEMIDE 40 MG/4 ML VIAL IV ONE ×2 (01:00→08:11)
[2020-06-27] MEDS: ALBUTEROL/IPRATROPIUM 3 ML NEB RESP TX PRN ×2 (03:04→07:53)
[2020-06-27] MEDS: LEVOTHYROXINE 50 MCG TABLET PO SCH (06:15)
[2020-06-27 06:50] LABS: Basophils # 0.1 10*3/uL (0.0-0.2); Basophils % 0.4 % (0.0-0.8); Hematocrit 40.9 VOL% (35.7-47.0); Hemoglobin 12.9 GM/DL (12.0-16.0); Immature Granulocytes % 3.7 %; Lymphocytes # 1.5 10*3/uL (1.4-4.0); Lymphocytes % 5.4 % (21.3-54.2); Mean Corpuscular HGB Conc 31.5 GM/DL (32-36); Mean Corpuscular Volume 91.5 FL (87-102); Mean Platelet Volume 8.7 FL (9.6-12.0); Monocytes % 8.8 % (1.7-12.7); Neutrophils % 81.7 % (38.7-73.9); Platelet Count 475 T/CUMM (130-400); Red Blood Count 4.47 MC/CUMM (3.8-5.5); Red Cell Distribution Width 14.3 % (9.3-17.3); White Blood Count 27.1 T/CUMM (4-12)
[2020-06-27 07:11] LABS: Band Neutrophils 4 % (0-10); Lymphocytes 9 % (20-55); Metamyelocytes 2 %; Myelocytes 1 %; Platelet Estimate Normal; Segmented Neutrophils 74 % (50-85); Total Cells Counted 100
[2020-06-27 07:12] LABS: Anisocytosis 2+; Macrocytosis Slight
[2020-06-27 07:29] LABS: Osmolality,Calculated 273.2 MOS/KG (273-304)
[2020-06-27 07:40] LABS: Calcium 9.3 MG/DL (8.5-10.1)
[2020-06-27] MEDS: ONDANSETRON 4 MG/2 ML VIAL IV PRN (07:57)
[2020-06-27] MEDS ORDERED: FUROSEMIDE 100 MG/10 ML VIAL ONE (08:13)
[2020-06-27] MEDS: methylPREDNISolone 4 MG TABLET PO SCH ×4 (09:48→21:41)
[2020-06-27] MEDS: PANTOPRAZOLE 40 MG TABLET PO SCH (09:48)
[2020-06-27] MEDS: CITALOPRAM 20 MG TABLET PO SCH (09:48)
[2020-06-27] MEDS: ASPIRIN EC 325 MG TABLET PO SCH (09:48)
[2020-06-27] MEDS: MULTIVITAMIN (CENTRUM) TABLET PO SCH (09:49)
[2020-06-27] MEDS: ISOSORBIDE MONONITRATE 30 MG TABLET PO SCH (09:49)
[2020-06-27] MEDS: DOCUSATE SODIUM 100 MG CAPSULE PO SCH ×2 (09:49→21:41)
[2020-06-27] MEDS: GABAPENTIN 300 MG CAPSULE PO SCH ×2 (09:49→21:41)
[2020-06-27] MEDS: AMIODARONE 200 MG TABLET PO SCH (09:49)
[2020-06-27] MEDS: DIVALPROEX 500 MG TABLET PO SCH (10:28)
[2020-06-27 10:44] LABS: Bacteria,Urine Occasional /HPF (Few); Bilirubin,Urine Negative (Negative); Blood, Urine Moderate mg/dL (Negative); Glucose,Urine (UA) Negative (Negative); Hyaline Casts,Urine 13 /LPF (0-3); Ketones,Urine Negative (Negative); Mucus,Urine Occasional /LPF (Occasional); Nitrite,Urine Negative (Negative); Protein,Urine Negative; RBC,Urine 111 /HPF (0-4); Urine Appearance CLEAR (Clear); Urine Color Straw (Yellow); Urine Specific Gravity 1.008 (1.001-1.035); Urine Urobilinogen < 2.0 EU/DL (0.2-1.0); WBC,Urine 2 /HPF (0-6)
[2020-06-27] MEDS: AMIODARONE INJ 450 MG in DEXTROSE 5% 241 ML IV SCH (12:30)
[2020-06-27] MEDS: FUROSEMIDE 40 MG/4 ML VIAL IV SCH ×2 (14:59→21:41)
[2020-06-27] MEDS: ROSUVASTATIN 10 MG TABLET PO SCH (21:41)
[2020-06-27] MEDS: traZODone 50 MG TABLET PO SCH (21:41)
[2020-06-28] MEDS: dilTIAZem Drip 125 MG/125 ML PREMIX IV SCH (03:20)
[2020-06-28 04:00] LABS: Basophils # 0.1 10*3/uL (0.0-0.2); Basophils % 0.4 % (0.0-0.8); Hematocrit 34.3 VOL% (35.7-47.0); Hemoglobin 11.2 GM/DL (12.0-16.0); Immature Granulocytes % 1.6 %; Immature Granulocytes Absolute 0.25 #; Lymphocytes # 1.2 10*3/uL (1.4-4.0); Lymphocytes % 7.2 % (21.3-54.2); Mean Corpuscular HGB Conc 32.7 GM/DL (32-36); Mean Corpuscular Volume 87.7 FL (87-102); Monocytes % 7.3 % (1.7-12.7); Neutrophils % 83.5 % (38.7-73.9); Platelet Count 334 T/CUMM (130-400); Red Blood Count 3.91 MC/CUMM (3.8-5.5); Red Cell Distribution Width 14.4 % (9.3-17.3); White Blood Count 16.1 T/CUMM (4-12)
[2020-06-28] MEDS: AMIODARONE INJ 450 MG in DEXTROSE 5% 241 ML IV SCH ×2 (04:09→19:34)
[2020-06-28 04:15] LABS: Calcium 9.2 MG/DL (8.5-10.1); Osmolality,Calculated 277.4 MOS/KG (273-304)
[2020-06-28] MEDS: LEVOTHYROXINE 50 MCG TABLET PO SCH (06:25)
[2020-06-28] MEDS: DOCUSATE SODIUM 100 MG CAPSULE PO SCH ×2 (09:04→21:00)
[2020-06-28] MEDS: MULTIVITAMIN (CENTRUM) TABLET PO SCH (09:05)
[2020-06-28] MEDS: ASPIRIN EC 325 MG TABLET PO SCH (09:05)
[2020-06-28] MEDS: GABAPENTIN 300 MG CAPSULE PO SCH ×2 (09:05→21:00)
[2020-06-28] MEDS: methylPREDNISolone 4 MG TABLET PO SCH ×3 (09:05→21:00)
[2020-06-28] MEDS: CITALOPRAM 20 MG TABLET PO SCH (09:05)
[2020-06-28] MEDS: PANTOPRAZOLE 40 MG TABLET PO SCH (09:05)
[2020-06-28] MEDS: FUROSEMIDE 40 MG/4 ML VIAL IV SCH ×3 (09:06→21:03)
[2020-06-28] MEDS: ISOSORBIDE MONONITRATE 30 MG TABLET PO SCH (09:06)
[2020-06-28] MEDS: DIVALPROEX 500 MG TABLET PO SCH (11:57)
[2020-06-28] MEDS: POLYETHYLENE GLYCOL POWDER 17 GM PACK PO SCH (12:46)
[2020-06-28] MEDS: METOPROLOL TARTRATE 25 MG TABLET PO SCH ×2 (12:46→21:01)
[2020-06-28] MEDS: ONDANSETRON 4 MG/2 ML VIAL IV PRN ×2 (14:34→19:51)
[2020-06-28] MEDS: ACETAMINOPHEN 500 MG TABLET PO PRN ×2 (15:45→22:52)
[2020-06-28] MEDS: LACTULOSE 20 GM/30 ML UDCUP PO PRN (17:10)
[2020-06-28] MEDS: ROSUVASTATIN 10 MG TABLET PO SCH (21:00)
[2020-06-28] MEDS: traZODone 50 MG TABLET PO SCH (21:02)
[2020-06-28] MEDS ORDERED: FUROSEMIDE 100 MG/10 ML VIAL IV ONE (23:00)
[2020-06-28] MEDS ORDERED: DOBUTamine 500 MG/250 ML PREMIX IV SCH (23:00)
[2020-06-29] MEDS: FUROSEMIDE INJ 100 MG in SODIUM CHLORIDE 0.9% 100 ML IV SCH ×5 (01:51→22:20)
[2020-06-29 05:11] LABS: Basophils # 0.1 10*3/uL (0.0-0.2); Basophils % 0.5 % (0.0-0.8); Hematocrit 35.2 VOL% (35.7-47.0); Hemoglobin 11.4 GM/DL (12.0-16.0); Immature Granulocytes % 5.5 %; Immature Granulocytes Absolute 1.13 #; Lymphocytes % 4.7 % (21.3-54.2); Mean Corpuscular HGB Conc 32.4 GM/DL (32-36); Mean Corpuscular Volume 89.8 FL (87-102); Mean Platelet Volume 9.6 FL (9.6-12.0); Monocytes % 3.9 % (1.7-12.7); NRBC # 0.09 10*3/uL; Neutrophils % 85.4 % (38.7-73.9); Platelet Count 264 T/CUMM (130-400); Red Blood Count 3.92 MC/CUMM (3.8-5.5); Red Cell Distribution Width 14.4 % (9.3-17.3); White Blood Count 20.6 T/CUMM (4-12)
[2020-06-29 05:34] LABS: Band Neutrophils 5 % (0-10); Hypochromasia 1+; Lymphocytes 11 % (20-55); Microcytosis Slight; Nucleated Red Blood Cells 1 (0-5); Segmented Neutrophils 81 % (50-85); Total Cells Counted 100
[2020-06-29 05:35] LABS: Platelet Estimate Normal; Polychromasia Slight
[2020-06-29 05:43] LABS: Calcium 8.9 MG/DL (8.5-10.1); Osmolality,Calculated 277.7 MOS/KG (273-304)
[2020-06-29] MEDS: LEVOTHYROXINE 50 MCG TABLET PO SCH (06:35)
[2020-06-29] MEDS: methylPREDNISolone 4 MG TABLET PO SCH ×2 (10:11→21:26)
[2020-06-29] MEDS: MULTIVITAMIN (CENTRUM) TABLET PO SCH (10:11)
[2020-06-29] MEDS: DOCUSATE SODIUM 100 MG CAPSULE PO SCH ×2 (10:11→21:26)
[2020-06-29] MEDS: ASPIRIN EC 325 MG TABLET PO SCH (10:11)
[2020-06-29] MEDS: CITALOPRAM 20 MG TABLET PO SCH (10:11)
[2020-06-29] MEDS: GABAPENTIN 300 MG CAPSULE PO SCH ×2 (10:11→21:26)
[2020-06-29] MEDS: PANTOPRAZOLE 40 MG TABLET PO SCH (10:12)
[2020-06-29] MEDS: POLYETHYLENE GLYCOL POWDER 17 GM PACK PO SCH ×2 (10:12→15:00)
[2020-06-29] MEDS: DIVALPROEX 500 MG TABLET PO SCH (10:17)
[2020-06-29] MEDS: AMIODARONE INJ 450 MG in DEXTROSE 5% 241 ML IV SCH (10:58)
[2020-06-29] MEDS: ACETAMINOPHEN 500 MG TABLET PO PRN (15:00)
[2020-06-29] MEDS ORDERED: DOBUTamine 500 MG/250 ML PREMIX IV SCH (16:27)
[2020-06-29] MEDS: LACTULOSE 20 GM/30 ML UDCUP PO PRN (16:57)
[2020-06-29 18:49] LABS: Calcium 8.7 MG/DL (8.5-10.1); Osmolality,Calculated 278.8 MOS/KG (273-304)
[2020-06-29] MEDS: ACETAMINOPHEN 325 MG TABLET PO PRN (21:26)
[2020-06-29] MEDS: traZODone 50 MG TABLET PO SCH (21:26)
[2020-06-29] MEDS: AMIODARONE 200 MG TABLET PO SCH (21:26)
[2020-06-30] MEDS: FUROSEMIDE INJ 100 MG in SODIUM CHLORIDE 0.9% 100 ML IV SCH ×3 (03:31→18:39)
[2020-06-30 05:10] LABS: Basophils # 0.1 10*3/uL (0.0-0.2); Basophils % 0.4 % (0.0-0.8); Hematocrit 35.6 VOL% (35.7-47.0); Hemoglobin 11.9 GM/DL (12.0-16.0); Immature Granulocytes % 2.9 %; Immature Granulocytes Absolute 0.63 #; Lymphocytes # 0.8 10*3/uL (1.4-4.0); Lymphocytes % 3.6 % (21.3-54.2); Mean Corpuscular HGB Conc 33.4 GM/DL (32-36); Mean Corpuscular Volume 85.4 FL (87-102); Mean Platelet Volume 9.7 FL (9.6-12.0); Monocytes % 2.2 % (1.7-12.7); NRBC # 0.21 10*3/uL; Neutrophils % 90.9 % (38.7-73.9); Platelet Count 261 T/CUMM (130-400); Red Blood Count 4.17 MC/CUMM (3.8-5.5); Red Cell Distribution Width 14.6 % (9.3-17.3); White Blood Count 21.4 T/CUMM (4-12)
[2020-06-30 05:30] LABS: Band Neutrophils 2 % (0-10); Hypochromasia 1+; Lymphocytes 1 % (20-55); Microcytosis Slight; Platelet Estimate Adequate; Segmented Neutrophils 94 % (50-85); Total Cells Counted 100
[2020-06-30 05:47] LABS: Albumin 2.8 G/DL (3.4-5.0); Bilirubin,Total 1.1 MG/DL (0.2-1.0); Calcium 8.6 MG/DL (8.5-10.1); Osmolality,Calculated 281.4 MOS/KG (273-304)
[2020-06-30] MEDS: LEVOTHYROXINE 50 MCG TABLET PO SCH (06:30)
[2020-06-30] MEDS: DOBUTamine 500 MG/250 ML PREMIX IV SCH (07:00)
[2020-06-30 08:06] LABS: Bilirubin,Direct 0.46 MG/DL (0.0-0.20)
[2020-06-30] MEDS: DOCUSATE SODIUM 100 MG CAPSULE PO SCH ×2 (08:40→20:07)
[2020-06-30] MEDS: MULTIVITAMIN (CENTRUM) TABLET PO SCH (08:40)
[2020-06-30] MEDS: POLYETHYLENE GLYCOL POWDER 17 GM PACK PO SCH (08:42)
[2020-06-30] MEDS: GABAPENTIN 300 MG CAPSULE PO SCH ×2 (08:42→20:07)
[2020-06-30] MEDS ORDERED: POTASSIUM CHLORIDE RIDER 10 MEQ in PREMIX 1 EACH IV PRN (08:45)
[2020-06-30] MEDS: ASPIRIN EC 325 MG TABLET PO SCH (09:18)
[2020-06-30] MEDS: CITALOPRAM 20 MG TABLET PO SCH (09:18)
[2020-06-30] MEDS: DIVALPROEX 500 MG TABLET PO SCH (09:18)
[2020-06-30] MEDS: AMIODARONE 200 MG TABLET PO SCH (09:18)
[2020-06-30] MEDS: PANTOPRAZOLE 40 MG TABLET PO SCH (09:19)
[2020-06-30] MEDS ORDERED: POTASSIUM CHLORIDE 20 MEQ TABLET PO ONE (10:30)
[2020-06-30] MEDS: METOPROLOL TARTRATE 25 MG TABLET PO SCH ×2 (10:40→20:07)
[2020-06-30] MEDS: ACETAMINOPHEN 325 MG TABLET PO PRN (10:40)
[2020-06-30 13:00] LABS: Hepatitis B Core IgM Quant 0.07 Index; Hepatitis B Surface Ag Quant 0.46 Index; Hepatitis B Surface Ag Result Negative (Negative); Hepatitis C Virus Ab Quant 0.04 Index; Hepatitis C Virus Ab Result Negative (Negative)
[2020-06-30] MEDS: traZODone 50 MG TABLET PO SCH (20:07)
[2020-07-01] MEDS: FUROSEMIDE INJ 100 MG in SODIUM CHLORIDE 0.9% 100 ML IV SCH ×2 (03:39→05:12)
[2020-07-01 04:35] LABS: Basophils # 0.1 10*3/uL (0.0-0.2); Basophils % 0.7 % (0.0-0.8); Eosinophils # 0.2 10*3/uL (0.0-0.87); Eosinophils % 1.1 % (0.00-10.9); Hematocrit 35.9 VOL% (35.7-47.0); Hemoglobin 11.9 GM/DL (12.0-16.0); Immature Granulocytes % 5.5 %; Immature Granulocytes Absolute 1.07 #; Lymphocytes # 1.3 10*3/uL (1.4-4.0); Lymphocytes % 6.8 % (21.3-54.2); Mean Corpuscular HGB Conc 33.1 GM/DL (32-36); Mean Corpuscular Volume 86.3 FL (87-102); Mean Platelet Volume 9.7 FL (9.6-12.0); Monocytes % 2.7 % (1.7-12.7); NRBC # 0.19 10*3/uL; Neutrophils % 83.2 % (38.7-73.9); Platelet Count 287 T/CUMM (130-400); Red Blood Count 4.16 MC/CUMM (3.8-5.5); Red Cell Distribution Width 14.6 % (9.3-17.3); White Blood Count 19.5 T/CUMM (4-12)
[2020-07-01 05:04] LABS: Band Neutrophils 5 % (0-10); Hypochromasia 1+; Lymphocytes 13 % (20-55); Nucleated Red Blood Cells 2 (0-5); Segmented Neutrophils 77 % (50-85); Total Cells Counted 100
[2020-07-01 05:05] LABS: Microcytosis Slight; Platelet Estimate Normal
[2020-07-01 05:19] LABS: Albumin 2.7 G/DL (3.4-5.0); Bilirubin,Total 1.1 MG/DL (0.2-1.0); Calcium 8.8 MG/DL (8.5-10.1); Osmolality,Calculated 280.4 MOS/KG (273-304); Total Protein 6.9 G/DL (6.4-8.3)
[2020-07-01] MEDS: LEVOTHYROXINE 50 MCG TABLET PO SCH (05:55)
[2020-07-01] MEDS: DOBUTamine 500 MG/250 ML PREMIX IV SCH (06:30)
[2020-07-01] MEDS: METOPROLOL TARTRATE 25 MG TABLET PO SCH ×2 (08:05→21:21)
[2020-07-01] MEDS: MULTIVITAMIN (CENTRUM) TABLET PO SCH (08:05)
[2020-07-01] MEDS: ASPIRIN EC 325 MG TABLET PO SCH (08:05)
[2020-07-01] MEDS: DIVALPROEX 500 MG TABLET PO SCH (08:05)
[2020-07-01] MEDS: DOCUSATE SODIUM 100 MG CAPSULE PO SCH ×2 (08:05→21:21)
[2020-07-01] MEDS: GABAPENTIN 300 MG CAPSULE PO SCH ×2 (08:05→21:21)
[2020-07-01] MEDS: PANTOPRAZOLE 40 MG TABLET PO SCH (08:05)
[2020-07-01] MEDS: CITALOPRAM 20 MG TABLET PO SCH (08:05)
[2020-07-01] MEDS: POLYETHYLENE GLYCOL POWDER 17 GM PACK PO SCH (08:06)
[2020-07-01] MEDS ORDERED: POTASSIUM CHLORIDE 20 MEQ TABLET PO SCH (09:00)
[2020-07-01] MEDS ORDERED: ONDANSETRON 4 MG/2 ML VIAL IV PRN (16:03)
[2020-07-01] MEDS ORDERED: GLUCAGON 1 MG VIAL IM PRN (16:03)
[2020-07-01] MEDS ORDERED: MAGNESIUM HYDROXIDE SUSP 30 ML UDCUP PO PRN (16:03)
[2020-07-01] MEDS ORDERED: CYANOCOBALAMIN 1000 MCG/1 ML VIAL IM SCH (16:03)
[2020-07-01] MEDS ORDERED: DEXTROSE 50% 25 GM/50 ML VIAL IV PRN (16:03)
[2020-07-01] MEDS: POTASSIUM CHLORIDE 20 MEQ TABLET PO SCH (21:21)
[2020-07-01] MEDS: ASCORBIC ACID 500 MG TABLET PO SCH (21:21)
[2020-07-01] MEDS: traZODone 50 MG TABLET PO SCH (21:21)
[2020-07-01] MEDS: FUROSEMIDE 40 MG TABLET PO SCH (21:21)
[2020-07-02 05:35] LABS: Basophils % 0.1 % (0.0-0.8); Eosinophils # 0.6 10*3/uL (0.0-0.87); Eosinophils % 3.9 % (0.00-10.9); Hematocrit 34.9 VOL% (35.7-47.0); Hemoglobin 11.4 GM/DL (12.0-16.0); Immature Granulocytes % 10.6 %; Immature Granulocytes Absolute 1.66 #; Lymphocytes # 1.4 10*3/uL (1.4-4.0); Mean Corpuscular HGB Conc 32.7 GM/DL (32-36); Mean Corpuscular Volume 87.5 FL (87-102); Mean Platelet Volume 9.3 FL (9.6-12.0); Monocytes % 5.1 % (1.7-12.7); NRBC # 0.08 10*3/uL; Neutrophils % 71.3 % (38.7-73.9); Platelet Count 267 T/CUMM (130-400); Red Blood Count 3.99 MC/CUMM (3.8-5.5); Red Cell Distribution Width 14.4 % (9.3-17.3); White Blood Count 15.6 T/CUMM (4-12)
[2020-07-02 06:02] LABS: Albumin 2.3 G/DL (3.4-5.0); Bilirubin,Direct 0.3 MG/DL (0.0-0.20); Bilirubin,Indirect 1.1 MG/DL (0.0-1.0); Bilirubin,Total 1.2 MG/DL (0.2-1.0); Bilirubin,Total 1.4 MG/DL (0.2-1.0); Calcium 8.6 MG/DL (8.5-10.1); Osmolality,Calculated 278.2 MOS/KG (273-304); Total Protein 6.2 G/DL (6.4-8.3)
[2020-07-02 06:09] LABS: Band Neutrophils 1 % (0-10); Eosinophils 2 % (0-10); Hypochromasia 1+; Lymphocytes 16 % (20-55); Microcytosis 1+; Platelet Estimate Adequate; Segmented Neutrophils 75 % (50-85); Total Cells Counted 100
[2020-07-02] MEDS: LEVOTHYROXINE 50 MCG TABLET PO SCH (06:21)
[2020-07-02] MEDS: POTASSIUM CHLORIDE 20 MEQ TABLET PO SCH ×2 (10:02→21:18)
[2020-07-02] MEDS: GABAPENTIN 300 MG CAPSULE PO SCH ×2 (10:02→21:16)
[2020-07-02] MEDS: DIVALPROEX 500 MG TABLET PO SCH (10:02)
[2020-07-02] MEDS: DOCUSATE SODIUM 100 MG CAPSULE PO SCH ×2 (10:03→21:17)
[2020-07-02] MEDS: METOPROLOL TARTRATE 25 MG TABLET PO SCH ×2 (10:03→21:17)
[2020-07-02] MEDS: ASCORBIC ACID 500 MG TABLET PO SCH ×2 (10:04→21:16)
[2020-07-02] MEDS: PANTOPRAZOLE 40 MG TABLET PO SCH (10:04)
[2020-07-02] MEDS: CITALOPRAM 20 MG TABLET PO SCH (10:04)
[2020-07-02] MEDS: FUROSEMIDE 40 MG TABLET PO SCH ×3 (10:04→21:18)
[2020-07-02] MEDS: ASPIRIN EC 325 MG TABLET PO SCH (10:05)
[2020-07-02] MEDS: MULTIVITAMIN (CENTRUM) TABLET PO SCH (10:05)
[2020-07-02] MEDS: POLYETHYLENE GLYCOL POWDER 17 GM PACK PO SCH (10:05)
[2020-07-02] MEDS: traZODone 50 MG TABLET PO SCH (21:17)
[2020-07-03 05:32] LABS: Calcium 8.6 MG/DL (8.5-10.1); Osmolality,Calculated 274.4 MOS/KG (273-304)
[2020-07-03] MEDS: LEVOTHYROXINE 50 MCG TABLET PO SCH (05:40)
[2020-07-03 07:38] LABS: Albumin 2.3 G/DL (3.4-5.0); Bilirubin,Direct 0.23 MG/DL (0.0-0.20); Bilirubin,Indirect 0.5 MG/DL (0.0-1.0); Bilirubin,Total 0.7 MG/DL (0.2-1.0); Total Protein 5.8 G/DL (6.4-8.3)
[2020-07-03] MEDS: ASPIRIN EC 325 MG TABLET PO SCH (09:37)
[2020-07-03] MEDS: ASCORBIC ACID 500 MG TABLET PO SCH ×2 (09:37→22:06)
[2020-07-03] MEDS: DIVALPROEX 500 MG TABLET PO SCH (09:37)
[2020-07-03] MEDS: POTASSIUM CHLORIDE 20 MEQ TABLET PO SCH ×2 (09:38→22:07)
[2020-07-03] MEDS: MULTIVITAMIN (CENTRUM) TABLET PO SCH (09:38)
[2020-07-03] MEDS: PANTOPRAZOLE 40 MG TABLET PO SCH (09:39)
[2020-07-03] MEDS: CITALOPRAM 20 MG TABLET PO SCH (09:39)
[2020-07-03] MEDS: DOCUSATE SODIUM 100 MG CAPSULE PO SCH ×2 (09:39→22:07)
[2020-07-03] MEDS: METOPROLOL TARTRATE 25 MG TABLET PO SCH ×2 (09:40→22:08)
[2020-07-03] MEDS: GABAPENTIN 300 MG CAPSULE PO SCH ×2 (09:41→22:05)
[2020-07-03] MEDS: POLYETHYLENE GLYCOL POWDER 17 GM PACK PO SCH (09:41)
[2020-07-03] MEDS: FUROSEMIDE 40 MG TABLET PO SCH ×3 (09:41→22:07)
[2020-07-03] MEDS: traZODone 50 MG TABLET PO SCH (22:05)
[2020-07-04] MEDS: LEVOTHYROXINE 50 MCG TABLET PO SCH (05:36)
[2020-07-04 05:53] LABS: Albumin 2.4 G/DL (3.4-5.0); Bilirubin,Total 0.9 MG/DL (0.2-1.0); Calcium 8.7 MG/DL (8.5-10.1); Osmolality,Calculated 275.1 MOS/KG (273-304); Total Protein 6.4 G/DL (6.4-8.3)
[2020-07-04] MEDS: ASPIRIN EC 325 MG TABLET PO SCH (10:00)
[2020-07-04] MEDS: POTASSIUM CHLORIDE 20 MEQ TABLET PO SCH ×2 (10:00→21:45)
[2020-07-04] MEDS: CITALOPRAM 20 MG TABLET PO SCH (10:01)
[2020-07-04] MEDS: ASCORBIC ACID 500 MG TABLET PO SCH ×2 (10:01→21:42)
[2020-07-04] MEDS: FUROSEMIDE 40 MG TABLET PO SCH ×3 (10:01→21:43)
[2020-07-04] MEDS: GABAPENTIN 300 MG CAPSULE PO SCH ×2 (10:02→21:41)
[2020-07-04] MEDS: DOCUSATE SODIUM 100 MG CAPSULE PO SCH ×2 (10:02→21:42)
[2020-07-04] MEDS: METOPROLOL TARTRATE 25 MG TABLET PO SCH ×2 (10:02→21:44)
[2020-07-04] MEDS: DIVALPROEX 500 MG TABLET PO SCH (10:02)
[2020-07-04] MEDS: PANTOPRAZOLE 40 MG TABLET PO SCH (10:02)
[2020-07-04] MEDS: POLYETHYLENE GLYCOL POWDER 17 GM PACK PO SCH (10:03)
[2020-07-04] MEDS: MULTIVITAMIN (CENTRUM) TABLET PO SCH (10:03)
[2020-07-04] MEDS ORDERED: ACETAMINOPHEN 325 MG TABLET PO PRN (10:19)
[2020-07-04] MEDS: traZODone 50 MG TABLET PO SCH (21:42)
[2020-07-05 05:38] LABS: Basophils # 0.1 10*3/uL (0.0-0.2); Basophils % 0.3 % (0.0-0.8); Eosinophils # 0.9 10*3/uL (0.0-0.87); Eosinophils % 4.9 % (0.00-10.9); Hematocrit 37.9 VOL% (35.7-47.0); Hemoglobin 12.3 GM/DL (12.0-16.0); Immature Granulocytes % 10.8 %; Immature Granulocytes Absolute 1.88 #; Lymphocytes # 2.2 10*3/uL (1.4-4.0); Lymphocytes % 12.5 % (21.3-54.2); Mean Corpuscular HGB Conc 32.5 GM/DL (32-36); Mean Corpuscular Volume 88.3 FL (87-102); Mean Platelet Volume 10.3 FL (9.6-12.0); Monocytes % 10.5 % (1.7-12.7); Red Blood Count 4.29 MC/CUMM (3.8-5.5); Red Cell Distribution Width 14.6 % (9.3-17.3); White Blood Count 17.4 T/CUMM (4-12)
[2020-07-05 05:44] LABS: Platelet Count 188 T/CUMM (130-400)
[2020-07-05 05:50] LABS: Calcium 8.7 MG/DL (8.5-10.1)
[2020-07-05 06:05] LABS: Eosinophils 6 % (0-10); Hypochromasia 1+; Lymphocytes 15 % (20-55); Microcytosis Slight; Platelet Estimate Adequate; Segmented Neutrophils 66 % (50-85); Total Cells Counted 100
[2020-07-05] MEDS: LEVOTHYROXINE 50 MCG TABLET PO SCH (06:29)
[2020-07-05] MEDS ORDERED: POTASSIUM CHLORIDE 20 MEQ TABLET PO SCH (09:00)
[2020-07-05] MEDS: GABAPENTIN 300 MG CAPSULE PO SCH ×2 (09:01→21:48)
[2020-07-05] MEDS: MULTIVITAMIN (CENTRUM) TABLET PO SCH (09:01)
[2020-07-05] MEDS: DOCUSATE SODIUM 100 MG CAPSULE PO SCH ×2 (09:01→21:48)
[2020-07-05] MEDS: FUROSEMIDE 40 MG TABLET PO SCH ×2 (09:02→16:13)
[2020-07-05] MEDS: PANTOPRAZOLE 40 MG TABLET PO SCH (09:02)
[2020-07-05] MEDS: ASCORBIC ACID 500 MG TABLET PO SCH ×2 (09:02→21:47)
[2020-07-05] MEDS: CITALOPRAM 20 MG TABLET PO SCH (09:02)
[2020-07-05] MEDS: ASPIRIN EC 325 MG TABLET PO SCH (09:02)
[2020-07-05] MEDS: DIVALPROEX 500 MG TABLET PO SCH (09:02)
[2020-07-05] MEDS: SPIRONOLACTONE 25 MG TABLET PO SCH ×2 (09:02→21:48)
[2020-07-05] MEDS: METOPROLOL TARTRATE 25 MG TABLET PO SCH ×2 (09:02→21:48)
[2020-07-05] MEDS: POLYETHYLENE GLYCOL POWDER 17 GM PACK PO SCH (09:03)
[2020-07-05] MEDS ORDERED: traZODone 50 MG TABLET PO PRN (09:22)
[2020-07-05] MEDS ORDERED: POTASSIUM CHLORIDE 20 MEQ TABLET PO ONE (09:23)
[2020-07-05] MEDS: TAMSULOSIN 0.4 MG CAPSULE PO SCH (21:47)
[2020-07-05] MEDS: POTASSIUM CHLORIDE 20 MEQ TABLET PO SCH (21:48)
[2020-07-06 05:32] LABS: Basophils # 0.1 10*3/uL (0.0-0.2); Basophils % 0.9 % (0.0-0.8); Eosinophils # 0.7 10*3/uL (0.0-0.87); Eosinophils % 4.8 % (0.00-10.9); Hematocrit 35.7 VOL% (35.7-47.0); Hemoglobin 11.5 GM/DL (12.0-16.0); Immature Granulocytes Absolute 1.29 #; Lymphocytes # 2.3 10*3/uL (1.4-4.0); Lymphocytes % 15.8 % (21.3-54.2); Mean Corpuscular HGB Conc 32.2 GM/DL (32-36); Mean Corpuscular Volume 88.1 FL (87-102); Mean Platelet Volume 9.3 FL (9.6-12.0); Monocytes % 9.1 % (1.7-12.7); Neutrophils % 60.4 % (38.7-73.9); Platelet Count 189 T/CUMM (130-400); Red Blood Count 4.05 MC/CUMM (3.8-5.5); Red Cell Distribution Width 14.6 % (9.3-17.3); White Blood Count 14.3 T/CUMM (4-12)
[2020-07-06] MEDS: LEVOTHYROXINE 50 MCG TABLET PO SCH ×2 (05:50→06:25)
[2020-07-06 05:54] LABS: Calcium 8.6 MG/DL (8.5-10.1); Osmolality,Calculated 272.1 MOS/KG (273-304)
[2020-07-06 05:55] LABS: Eosinophils 2 % (0-10); Hypochromasia 1+; Lymphocytes 13 % (20-55); Microcytosis 1+; Platelet Estimate Adequate; Segmented Neutrophils 79 % (50-85); Total Cells Counted 100
[2020-07-06] MEDS: DOCUSATE SODIUM 100 MG CAPSULE PO SCH ×2 (08:58→21:48)
[2020-07-06] MEDS: SPIRONOLACTONE 25 MG TABLET PO SCH ×2 (08:59→21:52)
[2020-07-06] MEDS: METOPROLOL TARTRATE 25 MG TABLET PO SCH ×2 (08:59→21:50)
[2020-07-06] MEDS: GABAPENTIN 300 MG CAPSULE PO SCH ×2 (08:59→21:48)
[2020-07-06] MEDS: ASPIRIN EC 325 MG TABLET PO SCH (08:59)
[2020-07-06] MEDS: ASCORBIC ACID 500 MG TABLET PO SCH ×2 (08:59→21:47)
[2020-07-06] MEDS: MULTIVITAMIN (CENTRUM) TABLET PO SCH (08:59)
[2020-07-06] MEDS: PANTOPRAZOLE 40 MG TABLET PO SCH (08:59)
[2020-07-06] MEDS: POTASSIUM CHLORIDE 20 MEQ TABLET PO SCH ×2 (08:59→21:48)
[2020-07-06] MEDS: CITALOPRAM 20 MG TABLET PO SCH (08:59)
[2020-07-06] MEDS: FUROSEMIDE 40 MG TABLET PO SCH ×2 (08:59→15:40)
[2020-07-06] MEDS: POLYETHYLENE GLYCOL POWDER 17 GM PACK PO SCH (09:00)
[2020-07-06] MEDS: DIVALPROEX 500 MG TABLET PO SCH (09:00)
[2020-07-06 12:11] LABS: Anti-Nuclear Antibody Pattern Homogeneous
[2020-07-06] MEDS: LACTULOSE 20 GM/30 ML UDCUP PO PRN (15:42)
[2020-07-06] MEDS ORDERED: EZETIMIBE 10 MG TABLET PO SCH (21:00)
[2020-07-06] MEDS: TAMSULOSIN 0.4 MG CAPSULE PO SCH (21:50)
[2020-07-07 05:38] LABS: Basophils # 0.1 10*3/uL (0.0-0.2); Basophils % 0.6 % (0.0-0.8); Eosinophils # 0.6 10*3/uL (0.0-0.87); Eosinophils % 3.8 % (0.00-10.9); Hematocrit 38.2 VOL% (35.7-47.0); Hemoglobin 12.3 GM/DL (12.0-16.0); Immature Granulocytes % 6.7 %; Immature Granulocytes Absolute 0.96 #; Lymphocytes # 2.7 10*3/uL (1.4-4.0); Lymphocytes % 18.7 % (21.3-54.2); Mean Corpuscular HGB Conc 32.2 GM/DL (32-36); Mean Corpuscular Volume 88.4 FL (87-102); Monocytes % 8.5 % (1.7-12.7); Neutrophils % 61.7 % (38.7-73.9); Platelet Count 192 T/CUMM (130-400); Red Blood Count 4.32 MC/CUMM (3.8-5.5); Red Cell Distribution Width 14.6 % (9.3-17.3); White Blood Count 14.3 T/CUMM (4-12)
[2020-07-07] MEDS: LEVOTHYROXINE 50 MCG TABLET PO SCH (05:49)
[2020-07-07 05:58] LABS: Calcium 9.1 MG/DL (8.5-10.1); Eosinophils 5 % (0-10); Hypochromasia 1+; Lymphocytes 21 % (20-55); Microcytosis 1+; Osmolality,Calculated 270.2 MOS/KG (273-304); Ovalocytes Slight; Platelet Estimate Adequate; Segmented Neutrophils 71 % (50-85); Total Cells Counted 100
[2020-07-07 06:03] LABS: Albumin 2.6 G/DL (3.4-5.0); Bilirubin,Total 0.8 MG/DL (0.2-1.0); Calcium 9.2 MG/DL (8.5-10.1); Osmolality,Calculated 275.8 MOS/KG (273-304); Total Protein 6.8 G/DL (6.4-8.3)
[2020-07-07 09:17] LABS: Anti SS-A Antibodies < 16 EU/ML
[2020-07-07 09:26] LABS: Double Stranded DNA Antibodies < 25.0 IU/ML
[2020-07-07] MEDS: METOPROLOL TARTRATE 25 MG TABLET PO SCH (09:47)
[2020-07-07] MEDS: ASCORBIC ACID 500 MG TABLET PO SCH (09:47)
[2020-07-07] MEDS: FUROSEMIDE 40 MG TABLET PO SCH (09:48)
[2020-07-07] MEDS: PANTOPRAZOLE 40 MG TABLET PO SCH (09:48)
[2020-07-07] MEDS: MULTIVITAMIN (CENTRUM) TABLET PO SCH (09:48)
[2020-07-07] MEDS: DOCUSATE SODIUM 100 MG CAPSULE PO SCH (09:48)
[2020-07-07] MEDS: CITALOPRAM 20 MG TABLET PO SCH (09:48)
[2020-07-07] MEDS: GABAPENTIN 300 MG CAPSULE PO SCH (09:48)
[2020-07-07] MEDS: DIVALPROEX 500 MG TABLET PO SCH (09:48)
[2020-07-07] MEDS: SPIRONOLACTONE 25 MG TABLET PO SCH (09:48)
[2020-07-07] MEDS: POLYETHYLENE GLYCOL POWDER 17 GM PACK PO SCH (09:49)
[2020-07-07] MEDS: POTASSIUM CHLORIDE 20 MEQ TABLET PO SCH (09:49)
[2020-07-07] MEDS: ASPIRIN EC 325 MG TABLET PO SCH (09:49)
[2020-07-07 10:22] VITALS: BP 111/56
== END 2020-07-07 11:50 | DRG 291 ==
LOC: EDUNIT# → EDBD → N.ED 12:44 → N.EDINP 14:18 → INTOOBSV 14:18 → N.TELES 15:30 → N.ICU 06-27 08:48 → N.TELES 07-01 16:03

== ENCOUNTER 2021-02-17 10:42 | Observation (INO) ==
[~2021-02-17 10:42] MED LIST: ASPIRIN CHEW 81 MG TABLET PO ONE; DIAZEPAM 5 MG TABLET PO ONE; MAGNESIUM SULF RIDER 2 GM/50 ML PREMIX IV PRN; POTASSIUM CHLORIDE RIDER 10 MEQ/100 ML PREMIX IV PRN; SODIUM CHLORIDE 0.9% 1,000 ML IV SCH; diphenhydrAMINE CAP 25 MG CAPSULE PO ONE
[2021-02-17 12:10] LABS: Calcium 9.4 MG/DL (8.5-10.1); Osmolality,Calculated 285.7 MOS/KG (273-304); Potassium 5.4 MMOL/L (3.5-5.1)
[2021-02-17] MEDS ORDERED: methylPREDNISolone SOD SUC 125 MG/2 ML VIAL IV ONE (12:21)
[2021-02-17] MEDS ORDERED: FAMOTIDINE 20 MG/2 ML VIAL IV ONE ×2 (12:22→12:25)
[2021-02-17] MEDS ORDERED: methylPREDNISolone SOD SUC 125 MG/2 ML VIAL ONE (12:25)
[2021-02-17] MEDS ORDERED: ASPIRIN CHEW 81 MG TABLET PO ONE (12:53)
[2021-02-17] MEDS ORDERED: DIAZEPAM 5 MG TABLET ONE (12:53)
[2021-02-17] MEDS ORDERED: diphenhydrAMINE CAP 25 MG CAPSULE ONE (14:13)
[2021-02-17] MEDS ORDERED: LIDOCAINE 1% 20 ML VIAL ONE ×2 (14:29→14:38)
[2021-02-17] MEDS ORDERED: fentaNYL 100 MCG/2 ML VIAL ONE (14:29)
[2021-02-17] MEDS ORDERED: MIDAZOLAM 2 MG/2 ML VIAL ONE (14:29)
[2021-02-17] MEDS ORDERED: DOBUTamine 500 MG/250 ML PREMIX IV ONE (14:59)
[2021-02-17] MEDS ORDERED: METOPROLOL TARTRATE 5 MG/5 ML VIAL IV ONE ×3 (15:00→15:49)
[2021-02-17] MEDS ORDERED: HEPARIN 5,000 UNIT/1 ML VIAL ONE (15:12)
[2021-02-17] MEDS ORDERED: TIROFIBAN 5,000 MCG/100 ML PREMIX IV ONE (15:15)
[2021-02-17] MEDS ORDERED: TIROFIBAN 5,000 MCG/100 ML PREMIX IV SCH (15:23)
[2021-02-17] MEDS ORDERED: TICAGRELOR 90 MG TABLET ONE (15:58)
[2021-02-17] MEDS ORDERED: MAGNESIUM SULF RIDER 4 GM/100 ML PREMIX IV PRN (16:50)
[2021-02-17] MEDS ORDERED: MAGNESIUM SULF RIDER 2 GM/50 ML PREMIX IV PRN (16:50)
[2021-02-17] MEDS ORDERED: ONDANSETRON 4 MG/2 ML VIAL IV PRN (16:50)
[2021-02-17] MEDS ORDERED: NON-FORMULARY MEDICATION (Acetaminophen 500 mg Capsule) PO PRN (16:57)
[2021-02-17] MEDS ORDERED: METHOCARBAMOL 500 MG TABLET PO PRN (16:57)
[2021-02-17] MEDS ORDERED: NITROGLYCERIN SL 0.4 MG TABLET SL PRN (16:57)
[2021-02-17] MEDS ORDERED: SODIUM CHLORIDE 0.9% 1,000 ML IV SCH (17:00)
[2021-02-17 18:03] LABS: CKMB % 7.8 %
[2021-02-17] MEDS: BENZONATATE 100 MG CAPSULE PO SCH ×2 (18:10→22:02)
[2021-02-17] MEDS: LORATADINE 10 MG TABLET PO SCH (18:11)
[2021-02-17] MEDS: ACETAMINOPHEN 325 MG TABLET PO PRN (18:12)
[2021-02-17] MEDS: PANTOPRAZOLE 40 MG TABLET PO SCH (18:12)
[2021-02-17] MEDS: predniSONE 50 MG TABLET PO SCH ×2 (18:19→22:01)
[2021-02-17 18:25] LABS: High Sensitive Troponin I* 922.4 ng/L (0-54)
[2021-02-17] MEDS: DOCUSATE SODIUM 100 MG CAPSULE PO SCH (22:00)
[2021-02-17] MEDS: TICAGRELOR 90 MG TABLET PO SCH (22:01)
[2021-02-17] MEDS: ZALEPLON 5 MG CAPSULE PO SCH (22:01)
[2021-02-17] MEDS: ASCORBIC ACID 500 MG TABLET PO SCH (22:01)
[2021-02-17] MEDS: EZETIMIBE 10 MG TABLET PO SCH (22:01)
[2021-02-17] MEDS: METOPROLOL TARTRATE 25 MG TABLET PO SCH (22:01)
[2021-02-17] MEDS: MELATONIN 3 MG TABLET PO SCH (22:01)
[2021-02-17] MEDS: FAMOTIDINE 20 MG TABLET PO SCH (22:02)
[2021-02-17] MEDS: GABAPENTIN 300 MG CAPSULE PO SCH (22:02)
[2021-02-18 01:25] LABS: Basophils % 0.1 % (0.0-0.8); Hematocrit 36.4 VOL% (35.7-47.0); Hemoglobin 11.9 GM/DL (12.0-16.0); Immature Granulocytes % 1.5 %; Immature Granulocytes Absolute 0.31 #; Lymphocytes # 1.1 10*3/uL (1.4-4.0); Lymphocytes % 5.1 % (21.3-54.2); Mean Corpuscular HGB Conc 32.7 GM/DL (32-36); Mean Corpuscular Volume 94.1 FL (87-102); Mean Platelet Volume 8.7 FL (9.6-12.0); Monocytes % 2.5 % (1.7-12.7); Neutrophils % 90.8 % (38.7-73.9); Platelet Count 272 T/CUMM (130-400); Red Blood Count 3.87 MC/CUMM (3.8-5.5); Red Cell Distribution Width 14.1 % (9.3-17.3); White Blood Count 20.8 T/CUMM (4-12)
[2021-02-18 01:49] LABS: CKMB % 9.7 %
[2021-02-18 01:51] LABS: High Sensitive Troponin I* 6790.9 ng/L (0-54)
[2021-02-18 02:09] LABS: Albumin 3.2 G/DL (3.4-5.0); Bilirubin,Total 0.5 MG/DL (0.2-1.0); Calcium 8.7 MG/DL (8.5-10.1); Osmolality,Calculated 283.7 MOS/KG (273-304); Potassium 4.5 MMOL/L (3.5-5.1); Thyroid Stimulating Hormone 0.714 uIU/ml (0.358-3.74); Total Protein 6.5 G/DL (6.4-8.2)
[2021-02-18 02:17] LABS: Band Neutrophils 2 % (0-10); Lymphocytes 7 % (20-55); Segmented Neutrophils 88 % (50-85); Total Cells Counted 100
[2021-02-18 02:18] LABS: Platelet Estimate Normal
[2021-02-18 02:19] LABS: Polychromasia Few
[2021-02-18] MEDS: predniSONE 50 MG TABLET PO SCH ×2 (06:05→11:25)
[2021-02-18] MEDS: LEVOTHYROXINE 50 MCG TABLET PO SCH (06:05)
[2021-02-18] MEDS ORDERED: FUROSEMIDE 40 MG/4 ML VIAL IV ONE ×2 (06:30→14:00)
[2021-02-18] MEDS: DIVALPROEX 500 MG TABLET PO SCH (09:18)
[2021-02-18] MEDS: ASCORBIC ACID 500 MG TABLET PO SCH ×2 (09:18→22:22)
[2021-02-18] MEDS: MULTIVITAMIN (CENTRUM) TABLET PO SCH (09:18)
[2021-02-18] MEDS: PANTOPRAZOLE 40 MG TABLET PO SCH (09:19)
[2021-02-18] MEDS: CITALOPRAM 20 MG TABLET PO SCH (09:19)
[2021-02-18] MEDS: METOPROLOL TARTRATE 25 MG TABLET PO SCH ×2 (09:19→22:20)
[2021-02-18] MEDS: DOCUSATE SODIUM 100 MG CAPSULE PO SCH ×2 (09:19→22:19)
[2021-02-18] MEDS: FAMOTIDINE 20 MG TABLET PO SCH ×2 (09:19→22:20)
[2021-02-18] MEDS: LORATADINE 10 MG TABLET PO SCH (09:19)
[2021-02-18] MEDS: TICAGRELOR 90 MG TABLET PO SCH ×2 (09:19→22:22)
[2021-02-18] MEDS: BENZONATATE 100 MG CAPSULE PO SCH ×3 (09:19→22:18)
[2021-02-18] MEDS: GABAPENTIN 300 MG CAPSULE PO SCH ×2 (09:19→22:20)
[2021-02-18] MEDS: ASPIRIN CHEW 81 MG TABLET PO SCH (09:19)
[2021-02-18] MEDS: POLYETHYLENE GLYCOL POWDER 17 GM PACK PO SCH (09:20)
[2021-02-18 09:34] LABS: CKMB % 8.4 %
[2021-02-18 09:37] LABS: High Sensitive Troponin I* 5028.2 ng/L (0-54)
[2021-02-18] MEDS ORDERED: ALBUTEROL/IPRATROPIUM 3 ML NEB RESP TX ONE (10:13)
[2021-02-18] MEDS ORDERED: AZITHROMYCIN 250 MG TABLET PO ONE (10:18)
[2021-02-18] MEDS: INSULIN LISPRO 100 UNIT/ML SUBCUT SCH ×3 (11:25→22:30)
[2021-02-18] MEDS: FLUTICASONE 50 MCG NASAL SPRAY 16 GM BOTTLE BOTH NARES SCH ×2 (11:25→22:25)
[2021-02-18] MEDS ORDERED: diphenhydrAMINE 2% CREAM 28 GM TUBE TOP PRN (13:47)
[2021-02-18] MEDS: ALBUTEROL/IPRATROPIUM 3 ML NEB RESP TX SCH ×2 (15:00→18:56)
[2021-02-18] MEDS: ACETAMINOPHEN 325 MG TABLET PO PRN (17:44)
[2021-02-18] MEDS: MELATONIN 3 MG TABLET PO SCH (22:17)
[2021-02-18] MEDS: ZALEPLON 5 MG CAPSULE PO SCH (22:17)
[2021-02-18] MEDS: EZETIMIBE 10 MG TABLET PO SCH (22:19)
[2021-02-19] MEDS: ALBUTEROL/IPRATROPIUM 3 ML NEB RESP TX SCH ×3 (00:53→13:35)
[2021-02-19 05:31] LABS: Basophils % 0.1 % (0.0-0.8); Hematocrit 32.4 VOL% (35.7-47.0); Hemoglobin 10.3 GM/DL (12.0-16.0); Immature Granulocytes % 1.7 %; Immature Granulocytes Absolute 0.26 #; Lymphocytes # 1.1 10*3/uL (1.4-4.0); Lymphocytes % 7.3 % (21.3-54.2); Mean Corpuscular HGB Conc 31.8 GM/DL (32-36); Mean Platelet Volume 9.2 FL (9.6-12.0); Monocytes % 5.9 % (1.7-12.7); Platelet Count 256 T/CUMM (130-400); Red Blood Count 3.34 MC/CUMM (3.8-5.5); Red Cell Distribution Width 14.5 % (9.3-17.3); White Blood Count 15.3 T/CUMM (4-12)
[2021-02-19 05:52] LABS: CKMB % 6.4 %; Calcium 8.4 MG/DL (8.5-10.1); Osmolality,Calculated 289.5 MOS/KG (273-304); Potassium 4.3 MMOL/L (3.5-5.1)
[2021-02-19 05:55] LABS: High Sensitive Troponin I* 2419.2 ng/L (0-54)
[2021-02-19] MEDS: LEVOTHYROXINE 50 MCG TABLET PO SCH (06:01)
[2021-02-19] MEDS: GABAPENTIN 300 MG CAPSULE PO SCH (08:57)
[2021-02-19] MEDS: ASCORBIC ACID 500 MG TABLET PO SCH (08:57)
[2021-02-19] MEDS: ASPIRIN CHEW 81 MG TABLET PO SCH (08:57)
[2021-02-19] MEDS: PANTOPRAZOLE 40 MG TABLET PO SCH (08:57)
[2021-02-19] MEDS: LORATADINE 10 MG TABLET PO SCH (08:58)
[2021-02-19] MEDS: METOPROLOL TARTRATE 25 MG TABLET PO SCH (08:58)
[2021-02-19] MEDS: BENZONATATE 100 MG CAPSULE PO SCH (08:58)
[2021-02-19] MEDS: CITALOPRAM 20 MG TABLET PO SCH (08:58)
[2021-02-19] MEDS: MULTIVITAMIN (CENTRUM) TABLET PO SCH (08:58)
[2021-02-19] MEDS: FAMOTIDINE 20 MG TABLET PO SCH (08:58)
[2021-02-19] MEDS: DOCUSATE SODIUM 100 MG CAPSULE PO SCH (08:58)
[2021-02-19] MEDS: DIVALPROEX 500 MG TABLET PO SCH (08:59)
[2021-02-19] MEDS: TICAGRELOR 90 MG TABLET PO SCH (08:59)
[2021-02-19] MEDS ORDERED: AZITHROMYCIN 250 MG TABLET PO SCH (09:00)
[2021-02-19] MEDS: FLUTICASONE 50 MCG NASAL SPRAY 16 GM BOTTLE BOTH NARES SCH (09:01)
[2021-02-19] MEDS: INSULIN LISPRO 100 UNIT/ML SUBCUT SCH ×2 (09:41→13:10)
[2021-02-19] MEDS: POLYETHYLENE GLYCOL POWDER 17 GM PACK PO SCH (09:44)
[2021-02-19 13:15] VITALS: BP 112/91
[2021-03-15] MEDS ORDERED: CYANOCOBALAMIN 1000 MCG/1 ML VIAL IM SCH (09:00)
== END 2021-02-19 14:16 | disposition home or self-care (01) ==
LOC: N.TELES → N.CL 10:42 → EDSTATUS 14:30 → N.TELES 16:50
PROVIDERS: ADMIT Internal Medicine Cardiovascular Disease; ATTEND Internal Medicine Cardiovascular Disease

== ENCOUNTER 2022-01-09 23:54 | Inpatient (IN) ==
[2022-01-10] MEDS ORDERED: MORPHINE 2 MG/1 ML SYRINGE IV STA (00:18)
[2022-01-10] MEDS ORDERED: ONDANSETRON 4 MG/2 ML VIAL IV ONE (00:18)
[2022-01-10 00:29] LABS: Basophils # 0.1 10*3/uL (0.0-0.2); Basophils % 0.4 % (0.0-0.8); Eosinophils % 0.1 % (0.00-10.9); Hematocrit 35.8 VOL% (35.7-47.0); Hemoglobin 11.2 GM/DL (12.0-16.0); Immature Granulocytes % 1.3 %; Immature Granulocytes Absolute 0.27 #; Lymphocytes # 0.7 10*3/uL (1.4-4.0); Lymphocytes % 3.3 % (21.3-54.2); Mean Corpuscular HGB Conc 31.3 GM/DL (32-36); Mean Corpuscular Volume 85.4 FL (87-102); Mean Platelet Volume 8.6 FL (9.6-12.0); Monocytes # 1.7 10*3/uL (0.11-0.8); Monocytes % 7.9 % (1.7-12.7); Platelet Count 282 T/CUMM (130-400); Red Blood Count 4.19 MC/CUMM (3.8-5.5); Red Cell Distribution Width 16.1 % (9.3-17.3); White Blood Count 21.2 T/CUMM (4-12)
[2022-01-10 00:41] LABS: Albumin 3.1 G/DL (3.4-5.0); Bilirubin,Total 0.4 MG/DL (0.20-1.00); Calcium 9.4 MG/DL (8.5-10.1); Osmolality,Calculated 273.5 MOS/KG (273-304); Potassium 4.6 MMOL/L (3.5-5.1); Total Protein 7.1 G/DL (6.4-8.2)
[2022-01-10] MEDS ORDERED: SODIUM CHLORIDE 0.9% 1,000 ML IV STA (00:43)
[2022-01-10] MEDS ORDERED: LEVOFLOXACIN INJ 500 MG/100 ML PREMIX IV ONE (00:51)
[2022-01-10 00:57] LABS: Bacteria,Urine Occasional /HPF (Few); Lymphocytes 4 % (20-55); Mucus,Urine Occasional /LPF (Occasional); Platelet Estimate Adequate; Squamous Epithelial Cell,Urine Occasional /HPF (0-10); Total Cells Counted 100
[2022-01-10 00:58] LABS: Bilirubin,Urine Negative (Negative); Blood, Urine Negative (Negative); Glucose,Urine (UA) >1000 mg/dL (Negative); Ketones,Urine TR mg/dL (Negative); Nitrite,Urine Negative (Negative); Protein,Urine Negative (Negative); Urine Appearance Slightly Cloudy (Clear); Urine Color Yellow (Yellow); Urine Specific Gravity 1.015 (1.001-1.035)
[2022-01-10] MEDS ORDERED: DEXTROSE 10% 250 ML BAG IV PRN (02:06)
[2022-01-10] MEDS ORDERED: MORPHINE 2 MG/1 ML SYRINGE IV PRN (02:06)
[2022-01-10] MEDS ORDERED: hydrALAZINE 20 MG/1 ML VIAL IV PRN (02:06)
[2022-01-10] MEDS ORDERED: GLUCAGON 1 MG VIAL IM PRN (02:06)
[2022-01-10 02:40] LABS: Risk Ratio 2.29; VLDL Cholesterol 26.2 MG/DL
[2022-01-10] MEDS ORDERED: BENZOCAINE 20% ORAL GEL 11.9 GM TUBE TOP PRN (03:11)
[2022-01-10] MEDS: ACETAMINOPHEN 325 MG TABLET PO PRN (04:23)
[2022-01-10] MEDS: INSULIN LISPRO 100 UNIT/ML SUBCUT SCH ×4 (07:25→22:17)
[2022-01-10] MEDS ORDERED: ASPIRIN 325 MG TABLET PO SCH (09:00)
[2022-01-10] MEDS ORDERED: PANTOPRAZOLE 40 MG TABLET PO SCH (09:00)
[2022-01-10] MEDS: ASCORBIC ACID 500 MG TABLET PO SCH ×2 (09:22→21:47)
[2022-01-10] MEDS: ASPIRIN EC 81 MG TABLET PO SCH (09:22)
[2022-01-10] MEDS: RANOLAZINE 500 MG TABLET PO SCH ×2 (09:22→21:47)
[2022-01-10] MEDS: METOPROLOL SUCCINATE XL 25 MG TABLET PO SCH (09:22)
[2022-01-10] MEDS: ENOXAPARIN 40 MG/0.4 ML SYRINGE SUBCUT SCH (09:24)
[2022-01-10] MEDS ORDERED: NITROGLYCERIN SL 0.4 MG TABLET SL PRN (09:25)
[2022-01-10] MEDS ORDERED: diphenhydrAMINE CAP 25 MG CAPSULE PO PRN (09:28)
[2022-01-10] MEDS: PRASUGREL 10 MG TABLET PO SCH (10:16)
[2022-01-10] MEDS ORDERED: LORATADINE 10 MG TABLET PO SCH (11:30)
[2022-01-10] MEDS ORDERED: FLUCONAZOLE 100 MG TABLET PO ONE (12:00)
[2022-01-10] MEDS ORDERED: methylPREDNISolone SOD SUC 40 MG/1 ML VIAL IV ONE (12:00)
[2022-01-10] MEDS ORDERED: FAMOTIDINE 20 MG/2 ML VIAL IV SCH (21:00)
[2022-01-10] MEDS: EZETIMIBE 10 MG TABLET PO SCH (21:47)
[2022-01-11 05:32] LABS: Basophils # 0.1 10*3/uL (0.0-0.2); Basophils % 0.3 % (0.0-0.8); Hematocrit 34.6 VOL% (35.7-47.0); Immature Granulocytes % 1.5 %; Immature Granulocytes Absolute 0.26 #; Lymphocytes # 0.9 10*3/uL (1.4-4.0); Lymphocytes % 5.1 % (21.3-54.2); Mean Corpuscular HGB Conc 31.8 GM/DL (32-36); Mean Corpuscular Volume 84.6 FL (87-102); Mean Platelet Volume 9.1 FL (9.6-12.0); Monocytes # 1.5 10*3/uL (0.11-0.8); Monocytes % 8.2 % (1.7-12.7); NRBC # 0.02 10*3/uL; Neutrophils % 84.9 % (38.7-73.9); Platelet Count 275 T/CUMM (130-400); Red Blood Count 4.09 MC/CUMM (3.8-5.5); Red Cell Distribution Width 16.6 % (9.3-17.3); White Blood Count 17.9 T/CUMM (4-12)
[2022-01-11 05:46] LABS: Calcium 8.8 MG/DL (8.5-10.1); Osmolality,Calculated 270.7 MOS/KG (273-304); Potassium 4.9 MMOL/L (3.5-5.1)
[2022-01-11 05:48] LABS: Osmolality,Calculated 270.7 MOS/KG (273-304); Potassium 4.9 MMOL/L (3.5-5.1)
[2022-01-11] MEDS: PRASUGREL 10 MG TABLET PO SCH (09:23)
[2022-01-11] MEDS: ASCORBIC ACID 500 MG TABLET PO SCH ×2 (09:23→21:22)
[2022-01-11] MEDS: ASPIRIN EC 81 MG TABLET PO SCH (09:23)
[2022-01-11] MEDS: DAPAGLIFLOZIN 5 MG TABLET PO SCH (09:23)
[2022-01-11] MEDS: METOPROLOL SUCCINATE XL 25 MG TABLET PO SCH (09:23)
[2022-01-11] MEDS: ENOXAPARIN 40 MG/0.4 ML SYRINGE SUBCUT SCH (09:23)
[2022-01-11] MEDS: RANOLAZINE 500 MG TABLET PO SCH ×2 (09:23→21:23)
[2022-01-11] MEDS: INSULIN LISPRO 100 UNIT/ML SUBCUT SCH ×4 (09:25→21:23)
[2022-01-11] MEDS: ONDANSETRON 4 MG/2 ML VIAL IV PRN (11:33)
[2022-01-11] MEDS: ACETAMINOPHEN 325 MG TABLET PO PRN (18:47)
[2022-01-11] MEDS: EZETIMIBE 10 MG TABLET PO SCH (21:23)
[2022-01-12] MEDS: LEVOFLOXACIN INJ 500 MG/100 ML PREMIX IV SCH (01:10)
[2022-01-12 04:49] LABS: Basophils # 0.1 10*3/uL (0.0-0.2); Basophils % 0.5 % (0.0-0.8); Eosinophils # 0.1 10*3/uL (0.0-0.87); Eosinophils % 0.6 % (0.00-10.9); Hematocrit 30.7 VOL% (35.7-47.0); Hemoglobin 9.7 GM/DL (12.0-16.0); Immature Granulocytes % 1.6 %; Immature Granulocytes Absolute 0.22 #; Lymphocytes # 1.1 10*3/uL (1.4-4.0); Lymphocytes % 7.8 % (21.3-54.2); Mean Corpuscular HGB Conc 31.6 GM/DL (32-36); Mean Corpuscular Volume 85.8 FL (87-102); Mean Platelet Volume 9.4 FL (9.6-12.0); Monocytes # 1.2 10*3/uL (0.11-0.8); Neutrophils % 80.5 % (38.7-73.9); Platelet Count 230 T/CUMM (130-400); Red Blood Count 3.58 MC/CUMM (3.8-5.5); Red Cell Distribution Width 16.3 % (9.3-17.3); White Blood Count 13.8 T/CUMM (4-12)
[2022-01-12 05:11] LABS: Calcium 9.2 MG/DL (8.5-10.1); Osmolality,Calculated 265.9 MOS/KG (273-304); Potassium 4.3 MMOL/L (3.5-5.1)
[2022-01-12 08:23] LABS: % Iron Saturation 10.3 % (18-50)
[2022-01-12] MEDS ORDERED: MAGNESIUM SULF RIDER 2 GM/50 ML PREMIX IV PRN (09:19)
[2022-01-12] MEDS ORDERED: POTASSIUM CHLORIDE RIDER 10 MEQ/100 ML PREMIX IV PRN (09:19)
[2022-01-12 09:27] LABS: Folate > 24.00 NG/ML (5.38-24.0); Vitamin B12 552 PG/ML (211-911)
[2022-01-12] MEDS: ASPIRIN EC 81 MG TABLET PO SCH (09:39)
[2022-01-12] MEDS: DAPAGLIFLOZIN 5 MG TABLET PO SCH (09:39)
[2022-01-12] MEDS: ROSUVASTATIN 10 MG TABLET PO SCH (09:39)
[2022-01-12] MEDS: PRASUGREL 10 MG TABLET PO SCH (09:39)
[2022-01-12] MEDS: ENOXAPARIN 40 MG/0.4 ML SYRINGE SUBCUT SCH (09:40)
[2022-01-12] MEDS: ASCORBIC ACID 500 MG TABLET PO SCH ×2 (09:40→22:12)
[2022-01-12] MEDS ORDERED: FERRIC GLUCONATE COMPLEX 125 MG in SODIUM CHLORIDE 0.9% 100 ML IV ONE (09:40)
[2022-01-12] MEDS: FUROSEMIDE 40 MG TABLET PO SCH (09:40)
[2022-01-12] MEDS: METOPROLOL SUCCINATE XL 25 MG TABLET PO SCH (09:40)
[2022-01-12] MEDS: RANOLAZINE 500 MG TABLET PO SCH ×2 (09:40→22:12)
[2022-01-12] MEDS ORDERED: SODIUM CHLORIDE 0.9% 1,000 ML IV SCH (11:00)
[2022-01-12] MEDS: methylPREDNISolone SOD SUC 125 MG/2 ML VIAL IV SCH ×2 (11:50→23:45)
[2022-01-12] MEDS: ONDANSETRON 4 MG/2 ML VIAL IV PRN (11:51)
[2022-01-12] MEDS: ACETAMINOPHEN 325 MG TABLET PO PRN (12:00)
[2022-01-12] MEDS: diphenhydrAMINE CAP 25 MG CAPSULE PO SCH ×2 (14:16→22:12)
[2022-01-12] MEDS: FAMOTIDINE INJ 40 MG in SODIUM CHLORIDE 0.9% 100 ML IV SCH ×2 (14:16→22:30)
[2022-01-12] MEDS ORDERED: HEPARIN/NACL 0.9% 2 UNITS/ML 3,000 UNIT/1,500 ML BAG IV ONE (14:35)
[2022-01-12] MEDS ORDERED: fentaNYL 100 MCG/2 ML VIAL ONE (14:43)
[2022-01-12] MEDS ORDERED: MIDAZOLAM 2 MG/2 ML VIAL ONE (14:43)
[2022-01-12] MEDS: INSULIN LISPRO 100 UNIT/ML SUBCUT SCH ×3 (15:29→21:45)
[2022-01-12] MEDS: EZETIMIBE 10 MG TABLET PO SCH (22:11)
[2022-01-13 07:39] LABS: Basophils % 0.3 % (0.0-0.8); Eosinophils % 0.1 % (0.00-10.9); Hematocrit 30.9 VOL% (35.7-47.0); Hemoglobin 9.6 GM/DL (12.0-16.0); Immature Granulocytes % 3.6 %; Lymphocytes # 0.5 10*3/uL (1.4-4.0); Lymphocytes % 3.7 % (21.3-54.2); Mean Corpuscular HGB Conc 31.1 GM/DL (32-36); Mean Corpuscular Volume 86.3 FL (87-102); Mean Platelet Volume 9.4 FL (9.6-12.0); Monocytes # 0.4 10*3/uL (0.11-0.8); Monocytes % 2.8 % (1.7-12.7); NRBC # 0.02 10*3/uL; Neutrophils % 89.5 % (38.7-73.9); Platelet Count 305 T/CUMM (130-400); Red Blood Count 3.58 MC/CUMM (3.8-5.5); Red Cell Distribution Width 16.2 % (9.3-17.3); White Blood Count 13.8 T/CUMM (4-12)
[2022-01-13 07:57] LABS: Band Neutrophils 3 % (0-10); Eosinophils 2 % (0-10); Lymphocytes 7 % (20-55); Platelet Estimate Adequate; Total Cells Counted 100
[2022-01-13 08:06] LABS: Calcium 9.5 MG/DL (8.5-10.1); Osmolality,Calculated 282.2 MOS/KG (273-304); Potassium 4.1 MMOL/L (3.5-5.1)
[2022-01-13] MEDS ORDERED: FERRIC GLUCONATE COMPLEX 125 MG in SODIUM CHLORIDE 0.9% 100 ML IV ONE (10:30)
[2022-01-13] MEDS: INSULIN LISPRO 100 UNIT/ML SUBCUT SCH ×4 (10:35→21:30)
[2022-01-13] MEDS: ACETAMINOPHEN 325 MG TABLET PO PRN (10:36)
[2022-01-13] MEDS: ASCORBIC ACID 500 MG TABLET PO SCH ×2 (10:36→20:29)
[2022-01-13] MEDS: DAPAGLIFLOZIN 5 MG TABLET PO SCH (10:36)
[2022-01-13] MEDS: METOPROLOL SUCCINATE XL 25 MG TABLET PO SCH (10:37)
[2022-01-13] MEDS: ROSUVASTATIN 10 MG TABLET PO SCH (10:37)
[2022-01-13] MEDS: RANOLAZINE 500 MG TABLET PO SCH ×2 (10:37→20:29)
[2022-01-13] MEDS: SPIRONOLACTONE 50 MG TABLET PO SCH (10:37)
[2022-01-13] MEDS: ASPIRIN EC 81 MG TABLET PO SCH (10:37)
[2022-01-13] MEDS: PRASUGREL 10 MG TABLET PO SCH (10:37)
[2022-01-13] MEDS: diphenhydrAMINE CAP 25 MG CAPSULE PO SCH (10:38)
[2022-01-13] MEDS: ENOXAPARIN 40 MG/0.4 ML SYRINGE SUBCUT SCH (10:39)
[2022-01-13] MEDS: FUROSEMIDE 40 MG TABLET PO SCH (10:43)
[2022-01-13] MEDS: methylPREDNISolone SOD SUC 125 MG/2 ML VIAL IV SCH (13:26)
[2022-01-13] MEDS: FAMOTIDINE INJ 40 MG in SODIUM CHLORIDE 0.9% 100 ML IV SCH (13:27)
[2022-01-13] MEDS: EZETIMIBE 10 MG TABLET PO SCH (20:29)
[2022-01-14] MEDS: LEVOFLOXACIN INJ 500 MG/100 ML PREMIX IV SCH (01:55)
[2022-01-14 05:40] LABS: Basophils # 0.1 10*3/uL (0.0-0.2); Basophils % 0.4 % (0.0-0.8); Hematocrit 30.7 VOL% (35.7-47.0); Hemoglobin 9.4 GM/DL (12.0-16.0); Immature Granulocytes % 5.5 %; Immature Granulocytes Absolute 1.06 #; Lymphocytes # 0.6 10*3/uL (1.4-4.0); Mean Corpuscular HGB Conc 30.6 GM/DL (32-36); Mean Corpuscular Volume 86.7 FL (87-102); Mean Platelet Volume 9.7 FL (9.6-12.0); Monocytes # 0.8 10*3/uL (0.11-0.8); Monocytes % 4.4 % (1.7-12.7); NRBC # 0.02 10*3/uL; Neutrophils % 86.7 % (38.7-73.9); Platelet Count 369 T/CUMM (130-400); Red Blood Count 3.54 MC/CUMM (3.8-5.5); Red Cell Distribution Width 16.4 % (9.3-17.3); White Blood Count 19.3 T/CUMM (4-12)
[2022-01-14 05:58] LABS: Calcium 8.7 MG/DL (8.5-10.1); Osmolality,Calculated 291.7 MOS/KG (273-304); Potassium 3.7 MMOL/L (3.5-5.1)
[2022-01-14 06:18] LABS: Band Neutrophils 2 % (0-10); Hypochromia Slight; Lymphocytes 2 % (20-55); Platelet Estimate Normal; Total Cells Counted 100
[2022-01-14] MEDS: DAPAGLIFLOZIN 5 MG TABLET PO SCH (08:24)
[2022-01-14] MEDS: RANOLAZINE 500 MG TABLET PO SCH ×2 (08:24→20:57)
[2022-01-14] MEDS: ENOXAPARIN 40 MG/0.4 ML SYRINGE SUBCUT SCH (08:24)
[2022-01-14] MEDS: PRASUGREL 10 MG TABLET PO SCH (08:24)
[2022-01-14] MEDS: INSULIN LISPRO 100 UNIT/ML SUBCUT SCH ×4 (08:24→21:03)
[2022-01-14] MEDS: SPIRONOLACTONE 50 MG TABLET PO SCH (08:25)
[2022-01-14] MEDS: ASPIRIN EC 81 MG TABLET PO SCH (08:25)
[2022-01-14] MEDS: FUROSEMIDE 40 MG TABLET PO SCH (08:25)
[2022-01-14] MEDS: ASCORBIC ACID 500 MG TABLET PO SCH ×2 (08:25→20:57)
[2022-01-14] MEDS: ROSUVASTATIN 10 MG TABLET PO SCH (08:25)
[2022-01-14] MEDS: METOPROLOL SUCCINATE XL 25 MG TABLET PO SCH (08:25)
[2022-01-14] MEDS: ACETAMINOPHEN 325 MG TABLET PO PRN ×2 (10:43→17:17)
[2022-01-14] MEDS ORDERED: AZITHROMYCIN INJ 500 MG in SODIUM CHLORIDE 0.9% 250 ML IV ONE (11:00)
[2022-01-14] MEDS: POLYETHYLENE GLYCOL POWDER 17 GM PACK PO SCH (12:45)
[2022-01-14] MEDS: AZTREONAM 500 MG in SODIUM CHLORIDE 0.9% 100 ML IV SCH ×2 (14:29→23:03)
[2022-01-14] MEDS: DOCUSATE SODIUM 100 MG CAPSULE PO SCH (20:57)
[2022-01-14] MEDS: EZETIMIBE 10 MG TABLET PO SCH (20:57)
[2022-01-15 04:52] LABS: Basophils # 0.1 10*3/uL (0.0-0.2); Basophils % 0.8 % (0.0-0.8); Eosinophils % 0.3 % (0.00-10.9); Hematocrit 33.2 VOL% (35.7-47.0); Hemoglobin 10.1 GM/DL (12.0-16.0); Immature Granulocytes % 7.9 %; Lymphocytes # 2.5 10*3/uL (1.4-4.0); Lymphocytes % 16.2 % (21.3-54.2); Mean Corpuscular HGB Conc 30.4 GM/DL (32-36); Mean Corpuscular Volume 86.5 FL (87-102); Mean Platelet Volume 9.1 FL (9.6-12.0); Monocytes # 1.2 10*3/uL (0.11-0.8); Monocytes % 7.8 % (1.7-12.7); NRBC # 0.07 10*3/uL; Platelet Count 416 T/CUMM (130-400); Red Blood Count 3.84 MC/CUMM (3.8-5.5); Red Cell Distribution Width 16.8 % (9.3-17.3); White Blood Count 15.1 T/CUMM (4-12)
[2022-01-15 05:09] LABS: Calcium 8.9 MG/DL (8.5-10.1); Osmolality,Calculated 292.4 MOS/KG (273-304); Potassium 3.6 MMOL/L (3.5-5.1)
[2022-01-15 05:35] LABS: Lymphocytes 16 % (20-55); Metamyelocytes 1 %; Promyelocytes 1 %; Total Cells Counted 100
[2022-01-15 05:36] LABS: Hypochromia Slight; Microcytosis 1+; Polychromasia Slight
[2022-01-15 05:37] LABS: Platelet Estimate Increased
[2022-01-15] MEDS: AZTREONAM 500 MG in SODIUM CHLORIDE 0.9% 100 ML IV SCH ×3 (06:09→21:38)
[2022-01-15] MEDS ORDERED: AZITHROMYCIN 250 MG TABLET PO SCH (09:00)
[2022-01-15] MEDS: METOPROLOL SUCCINATE XL 25 MG TABLET PO SCH (09:44)
[2022-01-15] MEDS: ROSUVASTATIN 10 MG TABLET PO SCH (09:44)
[2022-01-15] MEDS: DAPAGLIFLOZIN 5 MG TABLET PO SCH (09:44)
[2022-01-15] MEDS: ENOXAPARIN 40 MG/0.4 ML SYRINGE SUBCUT SCH (09:45)
[2022-01-15] MEDS: ASPIRIN EC 81 MG TABLET PO SCH (09:45)
[2022-01-15] MEDS: RANOLAZINE 500 MG TABLET PO SCH ×2 (09:45→21:37)
[2022-01-15] MEDS: SPIRONOLACTONE 50 MG TABLET PO SCH (09:46)
[2022-01-15] MEDS: ASCORBIC ACID 500 MG TABLET PO SCH ×2 (09:46→21:37)
[2022-01-15] MEDS: FUROSEMIDE 40 MG/4 ML VIAL IV SCH (09:47)
[2022-01-15] MEDS: POLYETHYLENE GLYCOL POWDER 17 GM PACK PO SCH (09:47)
[2022-01-15] MEDS: PRASUGREL 10 MG TABLET PO SCH (09:50)
[2022-01-15] MEDS: DOCUSATE SODIUM 100 MG CAPSULE PO SCH ×2 (09:52→21:37)
[2022-01-15] MEDS: INSULIN LISPRO 100 UNIT/ML SUBCUT SCH ×4 (12:00→23:07)
[2022-01-15] MEDS: EZETIMIBE 10 MG TABLET PO SCH (21:37)
[2022-01-16] MEDS: AZTREONAM 500 MG in SODIUM CHLORIDE 0.9% 100 ML IV SCH (05:17)
[2022-01-16 05:27] LABS: Basophils % 0.1 % (0.0-0.8); Eosinophils # 0.2 10*3/uL (0.0-0.87); Eosinophils % 1.8 % (0.00-10.9); Hematocrit 31.7 VOL% (35.7-47.0); Hemoglobin 9.7 GM/DL (12.0-16.0); Immature Granulocytes % 10.5 %; Lymphocytes # 2.5 10*3/uL (1.4-4.0); Lymphocytes % 19.9 % (21.3-54.2); Mean Corpuscular HGB Conc 30.6 GM/DL (32-36); Mean Corpuscular Volume 87.3 FL (87-102); Mean Platelet Volume 9.1 FL (9.6-12.0); Monocytes % 8.1 % (1.7-12.7); NRBC # 0.03 10*3/uL; Neutrophils % 59.6 % (38.7-73.9); Platelet Count 378 T/CUMM (130-400); Red Blood Count 3.63 MC/CUMM (3.8-5.5); White Blood Count 12.4 T/CUMM (4-12)
[2022-01-16 05:41] LABS: Calcium 8.8 MG/DL (8.5-10.1); Osmolality,Calculated 288.4 MOS/KG (273-304); Potassium 3.6 MMOL/L (3.5-5.1)
[2022-01-16 06:00] LABS: Band Neutrophils 2 % (0-10); Eosinophils 2 % (0-10); Hypochromia Slight; Lymphocytes 21 % (20-55); Metamyelocytes 3 %; Microcytosis 1+; Promyelocytes 1 %; Total Cells Counted 100
[2022-01-16 06:01] LABS: Polychromasia Slight
[2022-01-16] MEDS: INSULIN LISPRO 100 UNIT/ML SUBCUT SCH ×2 (08:30→13:05)
[2022-01-16] MEDS ORDERED: FERROUS SULFATE 325 MG TABLET PO SCH (09:00)
[2022-01-16] MEDS: PRASUGREL 10 MG TABLET PO SCH (09:35)
[2022-01-16] MEDS: ASPIRIN EC 81 MG TABLET PO SCH (09:35)
[2022-01-16] MEDS: DAPAGLIFLOZIN 5 MG TABLET PO SCH (09:36)
[2022-01-16] MEDS: METOPROLOL SUCCINATE XL 25 MG TABLET PO SCH (09:36)
[2022-01-16] MEDS: DOCUSATE SODIUM 100 MG CAPSULE PO SCH (09:36)
[2022-01-16] MEDS: ENOXAPARIN 40 MG/0.4 ML SYRINGE SUBCUT SCH (09:36)
[2022-01-16] MEDS: RANOLAZINE 500 MG TABLET PO SCH (09:36)
[2022-01-16] MEDS: SPIRONOLACTONE 50 MG TABLET PO SCH (09:36)
[2022-01-16] MEDS: POLYETHYLENE GLYCOL POWDER 17 GM PACK PO SCH (09:36)
[2022-01-16] MEDS: ROSUVASTATIN 10 MG TABLET PO SCH (09:36)
[2022-01-16] MEDS: ASCORBIC ACID 500 MG TABLET PO SCH (09:36)
[2022-01-16] MEDS: FUROSEMIDE 40 MG/4 ML VIAL IV SCH (09:37)
[2022-01-16 12:53] VITALS: BP 90/53
== END 2022-01-16 13:10 | DRG 689 ==
LOC: EDBD → EDUNIT# → N.ED 23:54 → SUATTDRO 01-10 02:06 → N.EDINP 01-10 02:06 → N.TELES 01-10 15:01
PROVIDERS: ADMIT Internal Medicine; ATTEND Internal Medicine